=== PATIENT | male | born 1950 | race Caucasian/White ===

== ENCOUNTER → 2022-05-21 | Outpatient (REF) | payer MEDICARE ==
[2022-05-21 16:59] LABS: BLOOD UREA NITROGEN 8 MG/DL (7-18); CALCIUM LEVEL 8.4 MG/DL (8.8-10.2); CARBON DIOXIDE LEVEL 20 MEQ/L (21-32); CHLORIDE LEVEL 101 MEQ/L (98-107); CREATININE FOR GFR 0.52 MG/DL (0.70-1.30); GLOMERULAR FILTRATION RATE > 60.0 (>42); GLUCOSE, FASTING 99 MG/DL (70-100); POTASSIUM SERUM 4.1 MEQ/L (3.5-5.1); SODIUM LEVEL 134 MEQ/L (136-145)
== END ==
LOC: M LAB REF 15:52
PROVIDERS: ATTEND Internal Medicine Endocrinology, Diabetes & Metabolism
DX: K26.1 Acute duodenal ulcer with perforation (principal)

== ENCOUNTER 2022-07-10 13:39 | Inpatient (IN) | payer MEDICARE, BC ==
[~2022-07-10] VITALS: Ht 165.1 cm; Wt 69.3 kg
[2022-07-10] MEDS ORDERED: NS 500 ML IV ONE (14:50)
[2022-07-10 14:59] LABS: BASO % 0.2 % (0.0-1.0); HEMATOCRIT 35.9 % (42.0-52.0); HEMOGLOBIN 11.9 g/dl (13.5-17.5); LYMPH # 0.5 10^3/uL (1.5-5.0); LYMPH % 2.6 % (24.0-44.0); MEAN CORPUSCULAR HEMOGLOBIN 26.7 pg (27.0-33.0); MEAN CORPUSCULAR HGB CONC 33.1 g/dl (32.0-36.5); MEAN CORPUSCULAR VOLUME 80.5 fl (80.0-96.0); MONO # 0.5 10^3/uL (0.0-0.8); MONO % 2.9 % (2.0-8.0); NEUTROPHILS # 17.6 10^3/uL (1.5-8.5); NEUTROPHILS % 93.8 % (36.0-66.0); PLATELET COUNT, AUTOMATED 503 10^3/uL (150-450); RED BLOOD COUNT 4.46 10^6/uL (4.30-6.10); WHITE BLOOD COUNT 18.8 10^3/uL (4.0-10.0)
[2022-07-10] MEDS ORDERED: ISOVUE-370 76% 100ML VIAL As Ordered ONE (15:08)
[2022-07-10] MEDS ORDERED: PIPERACILLIN/TAZOBACTAM SOD 4.5 GM in D5W MINI-BAG PLUS 50 ML IV ONE (15:30)
[2022-07-10] MEDS ORDERED: NS 2,210 ML in IV 1 EA IV ONE (15:30)
[2022-07-10 15:32] LABS: ALBUMIN 3.3 GM/DL (3.2-5.2); BILIRUBIN,DIRECT 0.2 MG/DL (0.0-0.2); BILIRUBIN,TOTAL 0.4 MG/DL (0.2-1.0); CALCIUM LEVEL 10.5 MG/DL (8.8-10.2); CREATININE FOR GFR 1.27 MG/DL (0.70-1.30); GLOMERULAR FILTRATION RATE 59.3 (>42); POTASSIUM SERUM 4.7 MEQ/L (3.5-5.1)
[2022-07-10 16:01] LABS: ABG BASE EXCESS -5.4 (-2.0-2.0); ABG O2 SATURATION 97.8 % (95.0-99.0); ABG PARTIAL PRESSURE CO2 28.5 mmHg (35.0-45.0); ABG PARTIAL PRESSURE O2 97.8 mmHg (75.0-100.0); ABG TOTAL CO2 18.9 MEQ/L (23.0-31.0); ABG pH (ARTERIAL) 7.418 UNITS (7.350-7.450)
[2022-07-10] MEDS ORDERED: HOME MED LIST COMPLETE! XX SCH (16:45)
[2022-07-10] MEDS ORDERED: GLUC3SPR (16:45)
[2022-07-10] MEDS ORDERED: DULO1CAP6 PO (16:45)
[2022-07-10] MEDS ORDERED: LANTINJ4 SC (16:45)
[2022-07-10] MEDS ORDERED: pt comment (16:45)
[2022-07-10] MEDS ORDERED: VICT18IN2 PO (16:45)
[2022-07-10 16:48] LABS: INR 1.12; PROTHROMBIN TIME 14.8 SECONDS (12.7-14.5)
[2022-07-10 17:01] LABS: RSV AMPLIFICATION NEGATIVE (NEGATIVE)
[2022-07-10 17:11] LABS: CK-MB VALUE MASS 3.7 NG/ML (<3.6); MB/CK RELATIVE INDEX 5.36 (< OR =4)
[2022-07-10] MEDS ORDERED: DEXTROSE 50% 50 ML SYRINGE IV PRN (17:20)
[2022-07-10] MEDS ORDERED: GLUCAGON INJ 1MG VIAL SC PRN (17:20)
[2022-07-10] MEDS ORDERED: GLUCOSE 4GM CHEW TABLET PO PRN (17:20)
[2022-07-10] MEDS ORDERED: GLUCAGON INJ 1MG VIAL As Ordered ONE (17:25)
[2022-07-10 17:31] LABS: C REACTIVE PROTEIN QUANTITATIV 18.9 MG/DL (0.00-0.30)
[2022-07-10] MEDS ORDERED: propofoL 200 MG/20 ML VIAL As Ordered ONE (17:37)
[2022-07-10] MEDS ORDERED: fentaNYL 100 MCG/2 ML INJECTION As Ordered ONE ×2 (17:37→18:45)
[2022-07-10] MEDS ORDERED: LIDOCAINE 2% 100MG/5ML SDV (FOR ANES.) As Ordered ONE (17:37)
[2022-07-10] MEDS ORDERED: ROCURONIUM BROMIDE 50 MG/5 ML VIAL As Ordered ONE ×2 (17:37→18:40)
[2022-07-10] MEDS ORDERED: MIDAZOLAM INJ 2MG/2ML VIAL (J2250 PER 1MG) As Ordered ONE (17:37)
[2022-07-10] MEDS ORDERED: dexameTHASONE 4 MG/ML 1ML VIAL (J1100 PER 1MG) As Ordered ONE (17:59)
[2022-07-10] MEDS ORDERED: INSULIN LISPRO (NovoLOG) PER UNIT SC SCH (18:00)
[2022-07-10 18:33] LABS: BLOOD UREA NITROGEN 28 MG/DL (7-18); CALCIUM LEVEL 9.5 MG/DL (8.8-10.2); CARBON DIOXIDE LEVEL 19 MEQ/L (21-32); CHLORIDE LEVEL 94 MEQ/L (98-107); CREATININE FOR GFR 1.12 MG/DL (0.70-1.30); GLOMERULAR FILTRATION RATE > 60.0 (>42); GLUCOSE, FASTING 114 MG/DL (70-100); POTASSIUM SERUM 4.4 MEQ/L (3.5-5.1); SODIUM LEVEL 125 MEQ/L (136-145)
[2022-07-10] MEDS ORDERED: BUPIVACAINE LIPOSOME/PF 1.3% 20ML VIAL (13.3MG/ML)(EXPAREL) As Ordered ONE ×2 (18:36→19:38)
[2022-07-10] MEDS ORDERED: ONDANSETRON 4MG 2ML VIAL As Ordered ONE (19:09)
[2022-07-10] MEDS ORDERED: ACETAMINOPHEN 1000MG 100ML IV BAG As Ordered ONE (19:09)
[2022-07-10] MEDS ORDERED: SUGAMMADEX SODIUM 500 MG/5 ML VIAL (BRIDION) As Ordered ONE (19:09)
[2022-07-10] MEDS ORDERED: HYDROmorphone HCL 2MG/ML 1ML VIAL As Ordered ONE (19:19)
[2022-07-10] MEDS ORDERED: NS 1,000 ML IV SCH ×2 (19:30→19:50)
[2022-07-10] MEDS ORDERED: HYDROMORPHONE HCL 0.5 MG/ 0.5 ML SYRINGE (J1170 PER 1) IV PRN (19:50)
[2022-07-10] MEDS ORDERED: IPRATROPIUM 0.5MG/ALBUTEROL 2.5MG INH SOL UD 3ML (DUONEB) NEB PRN (19:50)
[2022-07-10] MEDS ORDERED: INSULIN LISPRO (NovoLOG) PER UNIT SC PRN (19:50)
[2022-07-10] MEDS ORDERED: METOCLOPRAMIDE INJ 10MG/2ML VIAL (J2765 PER 1) IV PRN (19:50)
[2022-07-10] MEDS ORDERED: ONDANSETRON 4MG 2ML VIAL IV PRN (19:50)
[2022-07-10] MEDS ORDERED: MORPHINE 2 MG/ML 1ML VIAL IV PRN (19:50)
[2022-07-10] MEDS ORDERED: fentaNYL 100 MCG/2 ML INJECTION IV PRN (19:50)
[2022-07-10] MEDS ORDERED: LABETALOL 100MG/20ML VIAL As Ordered ONE (19:56)
[2022-07-10] MEDS: IPRATROPIUM 0.5MG/ALBUTEROL 2.5MG INH SOL UD 3ML (DUONEB) NEB SCH (20:00)
[2022-07-10 21:10] VITALS: BP 128/78
[2022-07-10] MEDS: PANTOPRAZOLE 40MG VIAL IV SCH (22:12)
[2022-07-10] MEDS: PIPERACILLIN/TAZOBACTAM SOD 3.375 GM in D5W MINI-BAG PLUS 50 ML IV SCH (22:12)
[2022-07-10] MEDS: MORPHINE 4 MG/ML 1ML VIAL IV PRN (22:13)
[2022-07-10] MEDS: NS 1,000 ML IV SCH (22:14)
[2022-07-10 22:44] LABS: BLOOD UREA NITROGEN 28 MG/DL (7-18); CALCIUM LEVEL 8.8 MG/DL (8.8-10.2); CARBON DIOXIDE LEVEL 19 MEQ/L (21-32); CHLORIDE LEVEL 97 MEQ/L (98-107); GLOMERULAR FILTRATION RATE > 60.0 (>42); GLUCOSE, FASTING 123 MG/DL (70-100); POTASSIUM SERUM 4.8 MEQ/L (3.5-5.1); SODIUM LEVEL 125 MEQ/L (136-145)
[2022-07-11] VITALS (7 sets, daily range): BP systolic 119–188; BP diastolic 76–116
[2022-07-11] MEDS: INSULIN LISPRO (NovoLOG) PER UNIT SC SCH ×4 (00:12→18:17)
[2022-07-11] MEDS: NS 1,000 ML IV SCH (01:28)
[2022-07-11] MEDS: IPRATROPIUM 0.5MG/ALBUTEROL 2.5MG INH SOL UD 3ML (DUONEB) NEB SCH ×4 (02:00→19:13)
[2022-07-11] MEDS: MORPHINE 4 MG/ML 1ML VIAL IV PRN ×4 (03:39→11:53)
[2022-07-11] MEDS: PIPERACILLIN/TAZOBACTAM SOD 3.375 GM in D5W MINI-BAG PLUS 50 ML IV SCH ×4 (04:42→22:59)
[2022-07-11 05:40] LABS: HEMATOCRIT 32.7 % (42.0-52.0); HEMOGLOBIN 10.5 g/dl (13.5-17.5); MEAN CORPUSCULAR HEMOGLOBIN 26.3 pg (27.0-33.0); MEAN CORPUSCULAR HGB CONC 32.1 g/dl (32.0-36.5); MEAN CORPUSCULAR VOLUME 81.8 fl (80.0-96.0); WHITE BLOOD COUNT 15.9 10^3/uL (4.0-10.0)
[2022-07-11 05:45] LABS: PLATELET COUNT, AUTOMATED 402 10^3/uL (150-450)
[2022-07-11 06:15] LABS: ALBUMIN 2.5 GM/DL (3.2-5.2); ALKALINE PHOSPHATASE 58 U/L (45-117); ALT/SGPT 17 U/L (12-78); AST/SGOT 19 U/L (7-37); BILIRUBIN,TOTAL 0.4 MG/DL (0.2-1.0); BLOOD UREA NITROGEN 29 MG/DL (7-18); CALCIUM LEVEL 8.8 MG/DL (8.8-10.2); CARBON DIOXIDE LEVEL 19 MEQ/L (21-32); CHLORIDE LEVEL 100 MEQ/L (98-107); CREATININE FOR GFR 0.68 MG/DL (0.70-1.30); GLOMERULAR FILTRATION RATE > 60.0 (>42); GLUCOSE, FASTING 106 MG/DL (70-100); MAGNESIUM LEVEL 1.3 MG/DL (1.8-2.4); PHOSPHORUS LEVEL 4.8 MG/DL (2.5-4.9); POTASSIUM SERUM 4.3 MEQ/L (3.5-5.1); SODIUM LEVEL 130 MEQ/L (136-145); TOTAL PROTEIN 5.5 GM/DL (6.4-8.2)
[2022-07-11] MEDS: PANTOPRAZOLE 40MG VIAL IV SCH ×2 (07:46→19:28)
[2022-07-11] MEDS ORDERED: MORPHINE 2 MG/ML 1ML VIAL IV PRN (09:30)
[2022-07-11] MEDS: MAG SULF 1GM/100ML (MAG RUN) 1 GM in IV 1 EA IV SCH ×2 (09:52→11:03)
[2022-07-11 10:16] LABS: OSMOLALITY URINE 807 MOSM/KG (50-1400)
[2022-07-11 10:43] LABS: SODIUM,RANDOM URINE 14 MEQ/L
[2022-07-11] MEDS: SODIUM BICARBONATE 75 MEQ in NS 0.45% 1,000 ML IV SCH (11:03)
[2022-07-11 12:05] LABS: BLOOD UREA NITROGEN 28 MG/DL (7-18); CALCIUM LEVEL 8.7 MG/DL (8.8-10.2); CARBON DIOXIDE LEVEL 19 MEQ/L (21-32); CHLORIDE LEVEL 100 MEQ/L (98-107); CREATININE FOR GFR 0.55 MG/DL (0.70-1.30); GLOMERULAR FILTRATION RATE > 60.0 (>42); GLUCOSE, FASTING 145 MG/DL (70-100); SODIUM LEVEL 130 MEQ/L (136-145)
[2022-07-11] MEDS ORDERED: HYDROMORPHONE HCL 0.5 MG/ 0.5 ML SYRINGE (J1170 PER 1) IV ONE (12:30)
[2022-07-11] MEDS: KETOROLAC 30 MG/ML 1ML VIAL IV SCH ×2 (12:50→18:17)
[2022-07-11] MEDS: HYDROmorphone HCL 2MG/ML 1ML VIAL IV PRN (13:10)
[2022-07-11 13:22] LABS: HEMATOCRIT 32.3 % (42.0-52.0); HEMOGLOBIN 10.5 g/dl (13.5-17.5); MEAN CORPUSCULAR HGB CONC 32.5 g/dl (32.0-36.5); PLATELET COUNT, AUTOMATED 450 10^3/uL (150-450); RED BLOOD COUNT 4.04 10^6/uL (4.30-6.10); WHITE BLOOD COUNT 18.4 10^3/uL (4.0-10.0)
[2022-07-11 13:53] LABS: ALBUMIN 2.5 GM/DL (3.2-5.2); ALKALINE PHOSPHATASE 69 U/L (45-117); ALT/SGPT 20 U/L (12-78); AST/SGOT 26 U/L (7-37); BILIRUBIN,TOTAL 0.5 MG/DL (0.2-1.0); BLOOD UREA NITROGEN 27 MG/DL (7-18); CALCIUM LEVEL 8.9 MG/DL (8.8-10.2); CARBON DIOXIDE LEVEL 16 MEQ/L (21-32); CHLORIDE LEVEL 100 MEQ/L (98-107); CREATININE FOR GFR 0.71 MG/DL (0.70-1.30); GLOMERULAR FILTRATION RATE > 60.0 (>42); GLUCOSE, FASTING 176 MG/DL (70-100); SODIUM LEVEL 130 MEQ/L (136-145); TOTAL PROTEIN 5.8 GM/DL (6.4-8.2)
[2022-07-11 14:43] LABS: BLOOD UREA NITROGEN 27 MG/DL (7-18); CALCIUM LEVEL 8.8 MG/DL (8.8-10.2); CARBON DIOXIDE LEVEL 17 MEQ/L (21-32); CHLORIDE LEVEL 101 MEQ/L (98-107); CREATININE FOR GFR 0.62 MG/DL (0.70-1.30); GLOMERULAR FILTRATION RATE > 60.0 (>42); GLUCOSE, FASTING 153 MG/DL (70-100); POTASSIUM SERUM 3.6 MEQ/L (3.5-5.1); SODIUM LEVEL 129 MEQ/L (136-145)
[2022-07-11] MEDS: HYDROMORPHONE HCL 0.5 MG/ 0.5 ML SYRINGE (J1170 PER 1) IV PRN ×3 (16:14→22:56)
[2022-07-12] VITALS: BP 133/91
[2022-07-12] MEDS: KETOROLAC 30 MG/ML 1ML VIAL IV SCH ×4 (00:24→18:27)
[2022-07-12] MEDS: SODIUM BICARBONATE 75 MEQ in NS 0.45% 1,000 ML IV SCH ×3 (01:02→21:15)
[2022-07-12] MEDS: IPRATROPIUM 0.5MG/ALBUTEROL 2.5MG INH SOL UD 3ML (DUONEB) NEB SCH ×4 (01:42→19:20)
[2022-07-12] MEDS: HYDROMORPHONE HCL 0.5 MG/ 0.5 ML SYRINGE (J1170 PER 1) IV PRN ×2 (03:24→17:56)
[2022-07-12 04:00] VITALS: BP 133/85
[2022-07-12] MEDS: PIPERACILLIN/TAZOBACTAM SOD 3.375 GM in D5W MINI-BAG PLUS 50 ML IV SCH ×4 (05:23→23:20)
[2022-07-12] MEDS: INSULIN LISPRO (NovoLOG) PER UNIT SC SCH ×5 (05:44→23:55)
[2022-07-12 05:46] LABS: HEMATOCRIT 34.3 % (42.0-52.0); HEMOGLOBIN 11.2 g/dl (13.5-17.5); MEAN CORPUSCULAR HEMOGLOBIN 26.5 pg (27.0-33.0); MEAN CORPUSCULAR HGB CONC 32.7 g/dl (32.0-36.5); MEAN CORPUSCULAR VOLUME 81.3 fl (80.0-96.0); PLATELET COUNT, AUTOMATED 489 10^3/uL (150-450); RED BLOOD COUNT 4.22 10^6/uL (4.30-6.10); WHITE BLOOD COUNT 16.2 10^3/uL (4.0-10.0)
[2022-07-12 06:23] LABS: ALBUMIN 2.2 GM/DL (3.2-5.2); ALKALINE PHOSPHATASE 68 U/L (45-117); ALT/SGPT 15 U/L (12-78); AST/SGOT 27 U/L (7-37); BILIRUBIN,TOTAL 0.5 MG/DL (0.2-1.0); BLOOD UREA NITROGEN 35 MG/DL (7-18); CALCIUM LEVEL 8.3 MG/DL (8.8-10.2); CARBON DIOXIDE LEVEL 20 MEQ/L (21-32); CHLORIDE LEVEL 102 MEQ/L (98-107); CREATININE FOR GFR 0.68 MG/DL (0.70-1.30); GLOMERULAR FILTRATION RATE > 60.0 (>42); GLUCOSE, FASTING 122 MG/DL (70-100); POTASSIUM SERUM 4.3 MEQ/L (3.5-5.1); SODIUM LEVEL 133 MEQ/L (136-145); TOTAL PROTEIN 5.3 GM/DL (6.4-8.2)
[2022-07-12] MEDS: HYDROmorphone HCL 2MG/ML 1ML VIAL IV PRN ×4 (07:23→21:13)
[2022-07-12 08:00] VITALS: BP 117/78
[2022-07-12] MEDS ORDERED: LORazepam 2 MG/ML VIAL IV PRN ×2 (08:55→20:55)
[2022-07-12] MEDS: PANTOPRAZOLE 40MG VIAL IV SCH ×2 (09:52→21:12)
[2022-07-12 12:00] VITALS: BP 157/94
[2022-07-12] MEDS ORDERED: NS 1,000 ML IV SCH (14:00)
[2022-07-12 16:00] VITALS: BP_SYST 157; BP_SYST 162; BP_DIAS 92; BP_DIAS 94
[2022-07-12] MEDS: OCTREOTIDE ACETATE 100MCG/ML VIAL **IV ADMINISTRATION ONLY IV SCH ×2 (16:37→23:25)
[2022-07-12 20:00] VITALS: BP 138/95
[2022-07-12] MEDS: ONDANSETRON 4MG 2ML VIAL IV PRN (23:20)
[2022-07-13] VITALS (12 sets, daily range): BP systolic 137–172; BP diastolic 60–98; O2SAT 92–99
[2022-07-13] MEDS ORDERED: LORazepam 2 MG/ML VIAL IV ONE
[2022-07-13] MEDS: KETOROLAC 30 MG/ML 1ML VIAL IV SCH ×4 (00:04→18:49)
[2022-07-13] MEDS: HYDROMORPHONE HCL 0.5 MG/ 0.5 ML SYRINGE (J1170 PER 1) IV PRN (00:47)
[2022-07-13 01:11] LABS: ABG BASE EXCESS -4.6 (-2.0-2.0); ABG HCO3 19.5 MEQ/L (22.0-26.0); ABG O2 SATURATION 97.8 % (95.0-99.0); ABG PARTIAL PRESSURE CO2 32.4 mmHg (35.0-45.0); ABG PARTIAL PRESSURE O2 95.8 mmHg (75.0-100.0); ABG STANDARD HCO3 20.6 MEQ/L (22.0-26.0); ABG TOTAL CO2 20.5 MEQ/L (23.0-31.0); ABG pH (ARTERIAL) 7.397 UNITS (7.350-7.450)
[2022-07-13] MEDS: IPRATROPIUM 0.5MG/ALBUTEROL 2.5MG INH SOL UD 3ML (DUONEB) NEB SCH ×4 (01:24→19:00)
[2022-07-13] MEDS: NS 1,000 ML IV SCH ×3 (03:00→15:44)
[2022-07-13] MEDS: HYDROmorphone HCL 2MG/ML 1ML VIAL IV PRN ×2 (03:48→06:49)
[2022-07-13] MEDS: PIPERACILLIN/TAZOBACTAM SOD 3.375 GM in D5W MINI-BAG PLUS 50 ML IV SCH ×4 (04:01→22:35)
[2022-07-13] MEDS: INSULIN LISPRO (NovoLOG) PER UNIT SC SCH ×3 (05:55→18:00)
[2022-07-13] MEDS: SODIUM BICARBONATE 75 MEQ in NS 0.45% 1,000 ML IV SCH (05:55)
[2022-07-13 06:23] LABS: BASO % 0.1 % (0.0-1.0); HEMATOCRIT 31.6 % (42.0-52.0); HEMOGLOBIN 10.1 g/dl (13.5-17.5); LYMPH % 5.2 % (24.0-44.0); MEAN CORPUSCULAR HEMOGLOBIN 26.2 pg (27.0-33.0); MEAN CORPUSCULAR VOLUME 81.9 fl (80.0-96.0); NEUTROPHILS # 16.3 10^3/uL (1.5-8.5); NEUTROPHILS % 86.1 % (36.0-66.0); PLATELET COUNT, AUTOMATED 461 10^3/uL (150-450); RED BLOOD COUNT 3.86 10^6/uL (4.30-6.10); WHITE BLOOD COUNT 18.9 10^3/uL (4.0-10.0)
[2022-07-13 06:49] LABS: MONO # 1.5 10^3/uL (0.0-0.8)
[2022-07-13 07:03] LABS: ALKALINE PHOSPHATASE 78 U/L (45-117); ALT/SGPT 16 U/L (12-78); AST/SGOT 37 U/L (7-37); BILIRUBIN,TOTAL 0.7 MG/DL (0.2-1.0); BLOOD UREA NITROGEN 40 MG/DL (7-18); CALCIUM LEVEL 8.3 MG/DL (8.8-10.2); CARBON DIOXIDE LEVEL 26 MEQ/L (21-32); CHLORIDE LEVEL 103 MEQ/L (98-107); CREATININE FOR GFR 0.68 MG/DL (0.70-1.30); GLOMERULAR FILTRATION RATE > 60.0 (>42); GLUCOSE, FASTING 147 MG/DL (70-100); MAGNESIUM LEVEL 2.1 MG/DL (1.8-2.4); PHOSPHORUS LEVEL 2.5 MG/DL (2.5-4.9); POTASSIUM SERUM 3.7 MEQ/L (3.5-5.1); SODIUM LEVEL 136 MEQ/L (136-145); TOTAL PROTEIN 5.8 GM/DL (6.4-8.2)
[2022-07-13] MEDS ORDERED: ACETAMINOPHEN 1000MG 100ML IV BAG IV ONE (07:55)
[2022-07-13] MEDS: OCTREOTIDE ACETATE 100MCG/ML VIAL **IV ADMINISTRATION ONLY IV SCH (09:02)
[2022-07-13] MEDS: PANTOPRAZOLE 40MG VIAL IV SCH ×2 (09:02→20:12)
[2022-07-13] MEDS ORDERED: ISOVUE-370 76% 100ML VIAL As Ordered ONE (09:18)
[2022-07-13] MEDS ORDERED: OLANZapine INTRAMUSCULAR 10MG VIAL IM ONE ×2 (09:30→23:05)
[2022-07-13] MEDS ORDERED: HYDROmorphone HCL 2MG/ML 1ML VIAL IV PRN (09:30)
[2022-07-13] MEDS: GASTROGRAFIN SOLUTION 30ML PO SCH ×2 (11:05→11:10)
[2022-07-13] MEDS ORDERED: LIDOCAINE 2% 100MG/5ML SDV (FOR ANES.) As Ordered ONE (12:49)
[2022-07-13] MEDS ORDERED: fentaNYL 100 MCG/2 ML INJECTION As Ordered ONE (12:50)
[2022-07-13] MEDS ORDERED: propofoL 200 MG/20 ML VIAL As Ordered ONE (12:50)
[2022-07-13] MEDS ORDERED: METOCLOPRAMIDE INJ 10MG/2ML VIAL (J2765 PER 1) As Ordered ONE (12:52)
[2022-07-13] MEDS ORDERED: ONDANSETRON 4MG 2ML VIAL As Ordered ONE (12:52)
[2022-07-13] MEDS ORDERED: ROCURONIUM BROMIDE 50 MG/5 ML VIAL As Ordered ONE ×2 (12:53→14:04)
[2022-07-13] MEDS: HEPARIN SOD (PORCINE) 5000UNITS/ML 1ML VIAL/SYRINGE SQ SCH ×2 (14:00→22:35)
[2022-07-13] MEDS ORDERED: SUGAMMADEX SODIUM 500 MG/5 ML VIAL (BRIDION) As Ordered ONE (14:42)
[2022-07-13] MEDS ORDERED: SEVOFLURANE INHAL SOLN 250 ML BTL As Ordered ONE (15:09)
[2022-07-13] MEDS ORDERED: ACETAMINOPHEN 1000MG 100ML IV BAG As Ordered ONE (15:29)
[2022-07-13] MEDS ORDERED: HYDROmorphone HCL 2MG/ML 1ML VIAL As Ordered ONE (15:35)
[2022-07-13] MEDS ORDERED: fentaNYL 100 MCG/2 ML INJECTION IV PRN (16:45)
[2022-07-13] MEDS ORDERED: INSULIN LISPRO (NovoLOG) PER UNIT SC PRN (16:45)
[2022-07-13] MEDS ORDERED: NS 1,000 ML IV SCH (16:45)
[2022-07-13] MEDS ORDERED: ONDANSETRON 4MG 2ML VIAL IV PRN (16:45)
[2022-07-13] MEDS ORDERED: HYDROMORPHONE HCL 0.5 MG/ 0.5 ML SYRINGE (J1170 PER 1) IV PRN (16:45)
[2022-07-13] MEDS: ONDANSETRON 4MG 2ML VIAL IV PRN (20:13)
[2022-07-14] VITALS (11 sets, daily range): BP systolic 132–158; BP diastolic 75–91; O2SAT 94–100
[2022-07-14] MEDS: IPRATROPIUM 0.5MG/ALBUTEROL 2.5MG INH SOL UD 3ML (DUONEB) NEB SCH ×4 (01:20→19:16)
[2022-07-14] MEDS: KETOROLAC 30 MG/ML 1ML VIAL IV SCH ×4 (01:27→18:05)
[2022-07-14] MEDS: HYDROMORPHONE HCL 0.5 MG/ 0.5 ML SYRINGE (J1170 PER 1) IV PRN ×3 (01:46→21:04)
[2022-07-14] MEDS: PIPERACILLIN/TAZOBACTAM SOD 3.375 GM in D5W MINI-BAG PLUS 50 ML IV SCH ×3 (06:04→18:05)
[2022-07-14] MEDS: HEPARIN SOD (PORCINE) 5000UNITS/ML 1ML VIAL/SYRINGE SQ SCH ×3 (06:05→21:03)
[2022-07-14] MEDS: INSULIN LISPRO (NovoLOG) PER UNIT SC SCH ×4 (06:14→18:00)
[2022-07-14 08:06] LABS: BASO % 0.1 % (0.0-1.0); EOS % 0.1 % (0.0-3.0); HEMATOCRIT 26.3 % (42.0-52.0); HEMOGLOBIN 8.2 g/dl (13.5-17.5); LYMPH # 0.8 10^3/uL (1.5-5.0); LYMPH % 4.6 % (24.0-44.0); MEAN CORPUSCULAR HEMOGLOBIN 26.4 pg (27.0-33.0); MEAN CORPUSCULAR HGB CONC 31.2 g/dl (32.0-36.5); MEAN CORPUSCULAR VOLUME 84.6 fl (80.0-96.0); MONO # 1.4 10^3/uL (0.0-0.8); MONO % 7.9 % (2.0-8.0); NEUTROPHILS # 14.8 10^3/uL (1.5-8.5); NEUTROPHILS % 86.6 % (36.0-66.0); PLATELET COUNT, AUTOMATED 399 10^3/uL (150-450); RED BLOOD COUNT 3.11 10^6/uL (4.30-6.10); WHITE BLOOD COUNT 17.1 10^3/uL (4.0-10.0)
[2022-07-14 08:57] LABS: ALBUMIN 1.9 GM/DL (3.2-5.2); ALKALINE PHOSPHATASE 59 U/L (45-117); ALT/SGPT 26 U/L (12-78); AST/SGOT 38 U/L (7-37); BILIRUBIN,TOTAL 0.4 MG/DL (0.2-1.0); BLOOD UREA NITROGEN 25 MG/DL (7-18); CALCIUM LEVEL 7.8 MG/DL (8.8-10.2); CARBON DIOXIDE LEVEL 26 MEQ/L (21-32); CHLORIDE LEVEL 110 MEQ/L (98-107); CREATININE FOR GFR 0.49 MG/DL (0.70-1.30); GLOMERULAR FILTRATION RATE > 60.0 (>42); GLUCOSE, FASTING 129 MG/DL (70-100); PHOSPHORUS LEVEL 2.1 MG/DL (2.5-4.9); POTASSIUM SERUM 3.8 MEQ/L (3.5-5.1); SODIUM LEVEL 142 MEQ/L (136-145); TOTAL PROTEIN 4.9 GM/DL (6.4-8.2)
[2022-07-14] MEDS: PANTOPRAZOLE 40MG VIAL IV SCH ×2 (09:40→21:02)
[2022-07-14] MEDS: NS 0.45% 1,000 ML IV SCH ×2 (10:55→18:06)
[2022-07-14] MEDS ORDERED: OLANZapine INTRAMUSCULAR 10MG VIAL IM ONE (11:10)
[2022-07-14] MEDS ORDERED: SODIUM PHOSPHATE INJ 20 MMOL in D5W 250 ML IV ONE (14:00)
[2022-07-14] MEDS: FLUCONAZOLE 400 MG in IV 1 EA IV SCH (14:43)
[2022-07-15] VITALS (11 sets, daily range): BP systolic 124–156; BP diastolic 60–86; O2SAT 97
[2022-07-15] MEDS: KETOROLAC 30 MG/ML 1ML VIAL IV SCH ×4 (00:22→18:36)
[2022-07-15] MEDS: PIPERACILLIN/TAZOBACTAM SOD 3.375 GM in D5W MINI-BAG PLUS 50 ML IV SCH ×4 (00:23→20:38)
[2022-07-15] MEDS: IPRATROPIUM 0.5MG/ALBUTEROL 2.5MG INH SOL UD 3ML (DUONEB) NEB SCH ×4 (01:40→19:21)
[2022-07-15] MEDS: HYDROMORPHONE HCL 0.5 MG/ 0.5 ML SYRINGE (J1170 PER 1) IV PRN ×4 (03:24→20:38)
[2022-07-15] MEDS: HEPARIN SOD (PORCINE) 5000UNITS/ML 1ML VIAL/SYRINGE SQ SCH ×3 (05:08→22:28)
[2022-07-15] MEDS: NS 0.45% 1,000 ML IV SCH ×3 (05:10→18:55)
[2022-07-15] MEDS: INSULIN LISPRO (NovoLOG) PER UNIT SC SCH ×4 (06:29→18:00)
[2022-07-15 08:24] LABS: ALBUMIN 1.8 GM/DL (3.2-5.2); ALKALINE PHOSPHATASE 61 U/L (45-117); ALT/SGPT 21 U/L (12-78); AST/SGOT 29 U/L (7-37); BILIRUBIN,TOTAL 0.3 MG/DL (0.2-1.0); BLOOD UREA NITROGEN 15 MG/DL (7-18); CALCIUM LEVEL 7.7 MG/DL (8.8-10.2); CARBON DIOXIDE LEVEL 27 MEQ/L (21-32); CHLORIDE LEVEL 108 MEQ/L (98-107); CREATININE FOR GFR 0.34 MG/DL (0.70-1.30); GLOMERULAR FILTRATION RATE > 60.0 (>42); GLUCOSE, FASTING 108 MG/DL (70-100); MAGNESIUM LEVEL 1.5 MG/DL (1.8-2.4); PHOSPHORUS LEVEL 2.3 MG/DL (2.5-4.9); POTASSIUM SERUM 3.4 MEQ/L (3.5-5.1); SODIUM LEVEL 142 MEQ/L (136-145); TOTAL PROTEIN 4.7 GM/DL (6.4-8.2)
[2022-07-15] MEDS ORDERED: KCL 10MEQ/100ML SWI (KRUN) 10 MEQ in IV 1 EA IV SCH (09:00)
[2022-07-15] MEDS ORDERED: ACETAMINOPHEN 1000MG 100ML IV BAG IV ONE (09:10)
[2022-07-15 09:13] LABS: HEMATOCRIT 22.4 % (42.0-52.0); MEAN CORPUSCULAR HEMOGLOBIN 26.4 pg (27.0-33.0); MEAN CORPUSCULAR HGB CONC 31.3 g/dl (32.0-36.5); MEAN CORPUSCULAR VOLUME 84.5 fl (80.0-96.0); PLATELET COUNT, AUTOMATED 351 10^3/uL (150-450); RED BLOOD COUNT 2.65 10^6/uL (4.30-6.10); WHITE BLOOD COUNT 12.8 10^3/uL (4.0-10.0)
[2022-07-15] MEDS: PANTOPRAZOLE 40MG VIAL IV SCH ×2 (09:39→22:27)
[2022-07-15] MEDS: MAG SULF 1GM/100ML (MAG RUN) 1 GM in IV 1 EA IV SCH ×2 (09:40→10:57)
[2022-07-15] MEDS ORDERED: ACETAMINOPHEN *IV* 1,000 MG IV ONE ×2 (10:00)
[2022-07-15] MEDS: FLUCONAZOLE 400 MG in IV 1 EA IV SCH ×2 (12:07→18:37)
[2022-07-15] MEDS: KCL 10MEQ/100ML SWI (KRUN) 10 MEQ in IV 1 EA IV SCH ×8 (12:07→22:00)
[2022-07-15] MEDS ORDERED: FUROSEMIDE 40MG/4ML VIAL (J1940) IV ONE (12:50)
[2022-07-15] MEDS: SODIUM PHOSPHATE INJ 20 MMOL in D5W 250 ML IV ONE ×2 (13:49→18:36)
[2022-07-16] VITALS (23 sets, daily range): BP systolic 115–146; BP diastolic 60–78; O2SAT 83–99
[2022-07-16] MEDS: KETOROLAC 30 MG/ML 1ML VIAL IV SCH ×2 (00:23→06:14)
[2022-07-16] MEDS: HYDROMORPHONE HCL 0.5 MG/ 0.5 ML SYRINGE (J1170 PER 1) IV PRN ×6 (01:53→22:58)
[2022-07-16] MEDS: PIPERACILLIN/TAZOBACTAM SOD 3.375 GM in D5W MINI-BAG PLUS 50 ML IV SCH ×4 (01:54→21:46)
[2022-07-16] MEDS: NS 0.45% 1,000 ML IV SCH ×2 (02:55→06:14)
[2022-07-16] MEDS: IPRATROPIUM 0.5MG/ALBUTEROL 2.5MG INH SOL UD 3ML (DUONEB) NEB SCH ×4 (03:02→20:01)
[2022-07-16] MEDS: INSULIN LISPRO (NovoLOG) PER UNIT SC SCH ×4 (05:37→16:51)
[2022-07-16] MEDS: HEPARIN SOD (PORCINE) 5000UNITS/ML 1ML VIAL/SYRINGE SQ SCH ×2 (05:54→13:57)
[2022-07-16 06:49] LABS: BASO % 0.1 % (0.0-1.0); EOS # 0.2 10^3/uL (0.0-0.5); EOS % 1.5 % (0.0-3.0); HEMATOCRIT 26.6 % (42.0-52.0); HEMOGLOBIN 8.6 g/dl (13.5-17.5); LYMPH # 1.2 10^3/uL (1.5-5.0); LYMPH % 8.6 % (24.0-44.0); MEAN CORPUSCULAR HGB CONC 32.3 g/dl (32.0-36.5); MEAN CORPUSCULAR VOLUME 83.4 fl (80.0-96.0); MONO # 0.9 10^3/uL (0.0-0.8); MONO % 6.4 % (2.0-8.0); NEUTROPHILS # 11.1 10^3/uL (1.5-8.5); NEUTROPHILS % 81.3 % (36.0-66.0); PLATELET COUNT, AUTOMATED 328 10^3/uL (150-450); RED BLOOD COUNT 3.19 10^6/uL (4.30-6.10); WHITE BLOOD COUNT 13.7 10^3/uL (4.0-10.0)
[2022-07-16 07:31] LABS: ALBUMIN 1.9 GM/DL (3.2-5.2); ALKALINE PHOSPHATASE 64 U/L (45-117); ALT/SGPT 21 U/L (12-78); AST/SGOT 37 U/L (7-37); BILIRUBIN,TOTAL 0.9 MG/DL (0.2-1.0); BLOOD UREA NITROGEN 12 MG/DL (7-18); CALCIUM LEVEL 7.5 MG/DL (8.8-10.2); CARBON DIOXIDE LEVEL 30 MEQ/L (21-32); CHLORIDE LEVEL 104 MEQ/L (98-107); CREATININE FOR GFR 0.42 MG/DL (0.70-1.30); GLOMERULAR FILTRATION RATE > 60.0 (>42); GLUCOSE, FASTING 107 MG/DL (70-100); MAGNESIUM LEVEL 1.2 MG/DL (1.8-2.4); POTASSIUM SERUM 3.2 MEQ/L (3.5-5.1); SODIUM LEVEL 141 MEQ/L (136-145); TOTAL PROTEIN 4.8 GM/DL (6.4-8.2)
[2022-07-16] MEDS: PANTOPRAZOLE 40MG VIAL IV SCH ×2 (08:00→21:46)
[2022-07-16 09:37] LABS: FERRITIN 233 NG/ML (26-388); IRON (FE) 165 UG/DL (65-175); PERCENT SATURATION 91.2 % (19.7-50.0); TOTAL IRON BINDING CAPACITY 181 UG/DL (250-450)
[2022-07-16] MEDS: KCL 10MEQ/100ML SWI (KRUN) 10 MEQ in IV 1 EA IV SCH ×4 (09:42→12:08)
[2022-07-16] MEDS: D5W/0.45% SODIUM CHLORIDE 1,000 ML IV SCH ×2 (09:44→18:50)
[2022-07-16 10:15] LABS: VITAMIN B12 LEVEL 1166 PG/ML (247-911)
[2022-07-16] MEDS: MAG SULF 1GM/100ML (MAG RUN) 1 GM in IV 1 EA IV SCH ×2 (13:20→14:19)
[2022-07-16] MEDS ORDERED: KCL 10MEQ/100ML SWI (KRUN) 10 MEQ in IV 1 EA IV ONE (16:00)
[2022-07-16] MEDS: FLUCONAZOLE 400 MG in IV 1 EA IV SCH (17:35)
[2022-07-16 19:32] LABS: BASO % 0.2 % (0.0-1.0); EOS # 0.1 10^3/uL (0.0-0.5); EOS % 0.6 % (0.0-3.0); HEMATOCRIT 25.2 % (42.0-52.0); HEMOGLOBIN 8.2 g/dl (13.5-17.5); LYMPH # 1.2 10^3/uL (1.5-5.0); LYMPH % 7.1 % (24.0-44.0); MEAN CORPUSCULAR HEMOGLOBIN 26.9 pg (27.0-33.0); MEAN CORPUSCULAR HGB CONC 32.5 g/dl (32.0-36.5); MEAN CORPUSCULAR VOLUME 82.6 fl (80.0-96.0); MONO # 0.8 10^3/uL (0.0-0.8); MONO % 4.9 % (2.0-8.0); NEUTROPHILS # 14.6 10^3/uL (1.5-8.5); NEUTROPHILS % 85.7 % (36.0-66.0); PLATELET COUNT, AUTOMATED 324 10^3/uL (150-450); RED BLOOD COUNT 3.05 10^6/uL (4.30-6.10); WHITE BLOOD COUNT 17.1 10^3/uL (4.0-10.0)
[2022-07-16 19:51] LABS: INR 1.21; PROTHROMBIN TIME 15.7 SECONDS (12.7-14.5)
[2022-07-16 19:57] LABS: PARTIAL THROMBOPLASTIN TIME 39.4 SECONDS (25.9-37.0)
[2022-07-16 23:51] LABS: HEMATOCRIT 22.1 % (42.0-52.0); HEMOGLOBIN 7.4 g/dl (13.5-17.5)
[2022-07-17] VITALS (20 sets, daily range): BP systolic 112–153; BP diastolic 53–98; O2SAT 97–100
[2022-07-17] MEDS ORDERED: NS 500 ML IV ONE
[2022-07-17 00:01] LABS: BLOOD UREA NITROGEN 13 MG/DL (7-18); CALCIUM LEVEL 7.4 MG/DL (8.8-10.2); CARBON DIOXIDE LEVEL 24 MEQ/L (21-32); CHLORIDE LEVEL 101 MEQ/L (98-107); CREATININE FOR GFR 0.52 MG/DL (0.70-1.30); GLOMERULAR FILTRATION RATE > 60.0 (>42); GLUCOSE, FASTING 163 MG/DL (70-100); POTASSIUM SERUM 3.1 MEQ/L (3.5-5.1); SODIUM LEVEL 137 MEQ/L (136-145)
[2022-07-17 00:04] LABS: CK-MB VALUE MASS 1.7 NG/ML (<3.6); MB/CK RELATIVE INDEX 1.32 (< OR =4)
[2022-07-17] MEDS: INSULIN LISPRO (NovoLOG) PER UNIT SC SCH ×5 (00:05→23:56)
[2022-07-17] MEDS ORDERED: KCL 10MEQ/100ML SWI (KRUN) 10 MEQ in IV 1 EA IV ONE (01:30)
[2022-07-17] MEDS ORDERED: ACETAMINOPHEN 1000MG 100ML IV BAG IV ONE ×2 (01:30→22:00)
[2022-07-17] MEDS: IPRATROPIUM 0.5MG/ALBUTEROL 2.5MG INH SOL UD 3ML (DUONEB) NEB SCH ×4 (02:00→19:01)
[2022-07-17] MEDS: HYDROMORPHONE HCL 0.5 MG/ 0.5 ML SYRINGE (J1170 PER 1) IV PRN ×6 (02:00→22:09)
[2022-07-17] MEDS: PIPERACILLIN/TAZOBACTAM SOD 3.375 GM in D5W MINI-BAG PLUS 50 ML IV SCH ×4 (03:11→21:21)
[2022-07-17] MEDS: D5W/0.45% SODIUM CHLORIDE 1,000 ML IV SCH ×2 (04:50→12:13)
[2022-07-17 06:52] LABS: HEMATOCRIT 26.4 % (42.0-52.0); HEMOGLOBIN 8.9 g/dl (13.5-17.5); MEAN CORPUSCULAR HEMOGLOBIN 28.4 pg (27.0-33.0); MEAN CORPUSCULAR HGB CONC 33.7 g/dl (32.0-36.5); MEAN CORPUSCULAR VOLUME 84.3 fl (80.0-96.0); PLATELET COUNT, AUTOMATED 323 10^3/uL (150-450); RED BLOOD COUNT 3.13 10^6/uL (4.30-6.10); WHITE BLOOD COUNT 23.4 10^3/uL (4.0-10.0)
[2022-07-17 07:29] LABS: ALBUMIN 1.7 GM/DL (3.2-5.2); ALKALINE PHOSPHATASE 65 U/L (45-117); ALT/SGPT 30 U/L (12-78); AST/SGOT 60 U/L (7-37); BILIRUBIN,TOTAL 0.9 MG/DL (0.2-1.0); BLOOD UREA NITROGEN 13 MG/DL (7-18); CALCIUM LEVEL 7.4 MG/DL (8.8-10.2); CARBON DIOXIDE LEVEL 28 MEQ/L (21-32); CHLORIDE LEVEL 100 MEQ/L (98-107); CREATININE FOR GFR 0.52 MG/DL (0.70-1.30); GLOMERULAR FILTRATION RATE > 60.0 (>42); GLUCOSE, FASTING 119 MG/DL (70-100); MAGNESIUM LEVEL 1.4 MG/DL (1.8-2.4); PHOSPHORUS LEVEL 4.3 MG/DL (2.5-4.9); POTASSIUM SERUM 3.2 MEQ/L (3.5-5.1); SODIUM LEVEL 135 MEQ/L (136-145); TOTAL PROTEIN 4.8 GM/DL (6.4-8.2)
[2022-07-17] MEDS: PANTOPRAZOLE 40MG VIAL IV SCH ×2 (09:10→22:09)
[2022-07-17 11:03] LABS: HEMATOCRIT 25.5 % (42.0-52.0); HEMOGLOBIN 8.6 g/dl (13.5-17.5)
[2022-07-17] MEDS: KCL 10MEQ/100ML SWI (KRUN) 10 MEQ in IV 1 EA IV SCH ×3 (11:34→20:00)
[2022-07-17] MEDS: MAG SULF 1GM/100ML (MAG RUN) 1 GM in IV 1 EA IV SCH ×2 (11:34→20:00)
[2022-07-17] MEDS ORDERED: MAG SULF 1GM/100ML (MAG RUN) 1 GM in IV 1 EA IV SCH (14:00)
[2022-07-17] MEDS ORDERED: KCL 10MEQ/100ML SWI (KRUN) 10 MEQ in IV 1 EA IV SCH (17:00)
[2022-07-17] MEDS ORDERED: AMINO AC/ELECTROLYTE/DEX/CALC 2,566 ML IV SCH (18:00)
[2022-07-17] MEDS: MICAFUNGIN SODIUM 100 MG in D5W MINI-BAG PLUS 100 ML IV SCH (22:09)
[2022-07-17 23:26] LABS: BASO # 0.1 10^3/uL (0.0-0.2); BASO % 0.2 % (0.0-1.0); EOS # 0.2 10^3/uL (0.0-0.5); EOS % 0.7 % (0.0-3.0); HEMATOCRIT 28.2 % (42.0-52.0); HEMOGLOBIN 9.7 g/dl (13.5-17.5); LYMPH % 4.5 % (24.0-44.0); MEAN CORPUSCULAR HEMOGLOBIN 28.7 pg (27.0-33.0); MEAN CORPUSCULAR HGB CONC 34.4 g/dl (32.0-36.5); MEAN CORPUSCULAR VOLUME 83.4 fl (80.0-96.0); MONO # 1.2 10^3/uL (0.0-0.8); MONO % 5.3 % (2.0-8.0); NEUTROPHILS # 19.9 10^3/uL (1.5-8.5); NEUTROPHILS % 87.8 % (36.0-66.0); PLATELET COUNT, AUTOMATED 272 10^3/uL (150-450); RED BLOOD COUNT 3.38 10^6/uL (4.30-6.10); WHITE BLOOD COUNT 22.7 10^3/uL (4.0-10.0)
[2022-07-18] VITALS (16 sets, daily range): BP systolic 127–158; BP diastolic 67–88; O2SAT 94–99
[2022-07-18] MEDS: D5W/0.45% SODIUM CHLORIDE 1,000 ML IV SCH ×4 (01:24→21:01)
[2022-07-18] MEDS: IPRATROPIUM 0.5MG/ALBUTEROL 2.5MG INH SOL UD 3ML (DUONEB) NEB SCH ×4 (01:29→21:52)
[2022-07-18] MEDS: PIPERACILLIN/TAZOBACTAM SOD 3.375 GM in D5W MINI-BAG PLUS 50 ML IV SCH ×4 (02:16→21:21)
[2022-07-18] MEDS: HYDROMORPHONE HCL 0.5 MG/ 0.5 ML SYRINGE (J1170 PER 1) IV PRN ×6 (02:30→21:21)
[2022-07-18] MEDS ORDERED: ACETAMINOPHEN 1000MG 100ML IV BAG IV ONE (04:55)
[2022-07-18] MEDS: INSULIN LISPRO (NovoLOG) PER UNIT SC SCH ×4 (06:18→23:44)
[2022-07-18 06:41] LABS: BASO % 0.2 % (0.0-1.0); EOS # 0.3 10^3/uL (0.0-0.5); EOS % 1.3 % (0.0-3.0); HEMATOCRIT 27.6 % (42.0-52.0); HEMOGLOBIN 9.3 g/dl (13.5-17.5); LYMPH # 0.8 10^3/uL (1.5-5.0); LYMPH % 3.9 % (24.0-44.0); MEAN CORPUSCULAR HEMOGLOBIN 28.4 pg (27.0-33.0); MEAN CORPUSCULAR HGB CONC 33.7 g/dl (32.0-36.5); MEAN CORPUSCULAR VOLUME 84.1 fl (80.0-96.0); MONO # 1.2 10^3/uL (0.0-0.8); NEUTROPHILS # 17.6 10^3/uL (1.5-8.5); NEUTROPHILS % 87.2 % (36.0-66.0); PLATELET COUNT, AUTOMATED 281 10^3/uL (150-450); RED BLOOD COUNT 3.28 10^6/uL (4.30-6.10); WHITE BLOOD COUNT 20.1 10^3/uL (4.0-10.0)
[2022-07-18 07:05] LABS: BLOOD UREA NITROGEN 6 MG/DL (7-18); CALCIUM LEVEL 7.3 MG/DL (8.8-10.2); CARBON DIOXIDE LEVEL 27 MEQ/L (21-32); CHLORIDE LEVEL 99 MEQ/L (98-107); CREATININE FOR GFR 0.34 MG/DL (0.70-1.30); GLOMERULAR FILTRATION RATE > 60.0 (>42); GLUCOSE, FASTING 135 MG/DL (70-100); POTASSIUM SERUM 2.9 MEQ/L (3.5-5.1); SODIUM LEVEL 132 MEQ/L (136-145)
[2022-07-18 08:40] LABS: MAGNESIUM LEVEL 1.4 MG/DL (1.8-2.4)
[2022-07-18] MEDS: PANTOPRAZOLE 40MG VIAL IV SCH ×2 (09:50→21:21)
[2022-07-18] MEDS: KCL 20MEQ IN 100ML SWI (KRUN) 20 MEQ in IV 1 EA IV SCH ×6 (09:51→11:07)
[2022-07-18] MEDS: MAG SULF 1GM/100ML (MAG RUN) 1 GM in IV 1 EA IV SCH ×2 (12:46→14:05)
[2022-07-18 14:00] LABS: POTASSIUM RANDOM URINE 45.8 MEQ/L
[2022-07-18 15:49] LABS: BASO % 0.1 % (0.0-1.0); EOS # 0.2 10^3/uL (0.0-0.5); EOS % 0.7 % (0.0-3.0); HEMATOCRIT 29.2 % (42.0-52.0); HEMOGLOBIN 9.8 g/dl (13.5-17.5); LYMPH # 0.9 10^3/uL (1.5-5.0); MEAN CORPUSCULAR HEMOGLOBIN 28.5 pg (27.0-33.0); MEAN CORPUSCULAR HGB CONC 33.6 g/dl (32.0-36.5); MEAN CORPUSCULAR VOLUME 84.9 fl (80.0-96.0); MONO # 1.3 10^3/uL (0.0-0.8); MONO % 6.1 % (2.0-8.0); NEUTROPHILS # 18.7 10^3/uL (1.5-8.5); NEUTROPHILS % 87.5 % (36.0-66.0); PLATELET COUNT, AUTOMATED 303 10^3/uL (150-450); RED BLOOD COUNT 3.44 10^6/uL (4.30-6.10); WHITE BLOOD COUNT 21.4 10^3/uL (4.0-10.0)
[2022-07-18] MEDS ORDERED: INSULIN LISPRO (NovoLOG) PER UNIT SC SCH (18:00)
[2022-07-18] MEDS ORDERED: MULTIVITAMIN -ADULT INJECTION 10 ML, ZINC/COPPER/MANGANESE/SELENIUM 1 ML, POTASSIUM CHL... IV SCH ×4 (18:00)
[2022-07-18] MEDS: MICAFUNGIN SODIUM 100 MG in D5W MINI-BAG PLUS 100 ML IV SCH (21:21)
[2022-07-19] VITALS (9 sets, daily range): BP systolic 128–160; BP diastolic 69–86; O2SAT 94–98
[2022-07-19] MEDS: HYDROMORPHONE HCL 0.5 MG/ 0.5 ML SYRINGE (J1170 PER 1) IV PRN ×6 (00:22→20:54)
[2022-07-19 00:27] LABS: BASO % 0.1 % (0.0-1.0); EOS # 0.1 10^3/uL (0.0-0.5); EOS % 0.6 % (0.0-3.0); HEMATOCRIT 27.2 % (42.0-52.0); HEMOGLOBIN 9.1 g/dl (13.5-17.5); LYMPH # 0.9 10^3/uL (1.5-5.0); LYMPH % 4.3 % (24.0-44.0); MEAN CORPUSCULAR HEMOGLOBIN 28.3 pg (27.0-33.0); MEAN CORPUSCULAR HGB CONC 33.5 g/dl (32.0-36.5); MEAN CORPUSCULAR VOLUME 84.5 fl (80.0-96.0); MONO # 1.4 10^3/uL (0.0-0.8); MONO % 6.8 % (2.0-8.0); NEUTROPHILS # 17.2 10^3/uL (1.5-8.5); NEUTROPHILS % 86.5 % (36.0-66.0); PLATELET COUNT, AUTOMATED 311 10^3/uL (150-450); RED BLOOD COUNT 3.22 10^6/uL (4.30-6.10); WHITE BLOOD COUNT 19.9 10^3/uL (4.0-10.0)
[2022-07-19] MEDS ORDERED: ACETAMINOPHEN 1000MG 100ML IV BAG IV ONE (01:45)
[2022-07-19] MEDS: PIPERACILLIN/TAZOBACTAM SOD 3.375 GM in D5W MINI-BAG PLUS 50 ML IV SCH ×4 (02:13→20:54)
[2022-07-19] MEDS: IPRATROPIUM 0.5MG/ALBUTEROL 2.5MG INH SOL UD 3ML (DUONEB) NEB SCH ×4 (02:45→19:32)
[2022-07-19] MEDS ORDERED: diphenhydrAMINE 50MG/ML VIAL IV ONE (04:20)
[2022-07-19 06:22] LABS: HEMATOCRIT 24.7 % (42.0-52.0); HEMOGLOBIN 8.4 g/dl (13.5-17.5); MEAN CORPUSCULAR HEMOGLOBIN 28.5 pg (27.0-33.0); MEAN CORPUSCULAR VOLUME 83.7 fl (80.0-96.0); PLATELET COUNT, AUTOMATED 288 10^3/uL (150-450); RED BLOOD COUNT 2.95 10^6/uL (4.30-6.10); WHITE BLOOD COUNT 17.7 10^3/uL (4.0-10.0)
[2022-07-19] MEDS: INSULIN LISPRO (NovoLOG) PER UNIT SC SCH ×3 (06:32→17:48)
[2022-07-19 07:00] LABS: BLOOD UREA NITROGEN 5 MG/DL (7-18); CALCIUM LEVEL 6.9 MG/DL (8.8-10.2); CARBON DIOXIDE LEVEL 25 MEQ/L (21-32); CHLORIDE LEVEL 104 MEQ/L (98-107); CREATININE FOR GFR 0.33 MG/DL (0.70-1.30); GLOMERULAR FILTRATION RATE > 60.0 (>42); GLUCOSE, FASTING 173 MG/DL (70-100); POTASSIUM SERUM 2.9 MEQ/L (3.5-5.1); SODIUM LEVEL 137 MEQ/L (136-145)
[2022-07-19] MEDS: KCL 20MEQ IN 100ML SWI (KRUN) 20 MEQ in IV 1 EA IV SCH ×6 (09:05→11:23)
[2022-07-19] MEDS: PANTOPRAZOLE 40MG VIAL IV SCH ×2 (09:06→20:54)
[2022-07-19] MEDS: D5W/0.45% SODIUM CHLORIDE 1,000 ML IV SCH ×3 (09:07→23:19)
[2022-07-19 10:05] LABS: ALBUMIN 1.4 GM/DL (3.2-5.2); ALKALINE PHOSPHATASE 63 U/L (45-117); ALT/SGPT 22 U/L (12-78); AST/SGOT 30 U/L (7-37); BILIRUBIN,DIRECT 0.2 MG/DL (0.0-0.2); BILIRUBIN,TOTAL 0.4 MG/DL (0.2-1.0); MAGNESIUM LEVEL 1.2 MG/DL (1.8-2.4); TOTAL PROTEIN 4.5 GM/DL (6.4-8.2)
[2022-07-19] MEDS: MAG SULF 1GM/100ML (MAG RUN) 1 GM in IV 1 EA IV SCH ×2 (14:15→15:52)
[2022-07-19] MEDS ORDERED: CALCIUM GLUCONATE 1,000 MG in D5W MINI-BAG PLUS 100 ML IV ONE (15:00)
[2022-07-19] MEDS ORDERED: POTASSIUM CHLORIDE IV SCH ×2 (18:00)
[2022-07-19] MEDS ORDERED: [UNRECOGNIZED DRUG - OTHER] IV SCH (18:00)
[2022-07-19] MEDS ORDERED: DEX IV SCH (18:00)
[2022-07-19] MEDS ORDERED: MAGNESIUM SULFATE IV SCH (18:00)
[2022-07-19] MEDS ORDERED: CALC IV SCH (18:00)
[2022-07-19] MEDS ORDERED: AMINO AC IV SCH (18:00)
[2022-07-19] MEDS ORDERED: ELECTROLYTE IV SCH (18:00)
[2022-07-19] MEDS: MICAFUNGIN SODIUM 100 MG in D5W MINI-BAG PLUS 100 ML IV SCH (20:54)
[2022-07-20] VITALS (19 sets, daily range): BP systolic 137–145; BP diastolic 77–83; O2SAT 97–100
[2022-07-20] MEDS: INSULIN LISPRO (NovoLOG) PER UNIT SC SCH ×5 (00:18→23:52)
[2022-07-20] MEDS: HYDROMORPHONE HCL 0.5 MG/ 0.5 ML SYRINGE (J1170 PER 1) IV PRN ×7 (00:19→21:32)
[2022-07-20] MEDS: IPRATROPIUM 0.5MG/ALBUTEROL 2.5MG INH SOL UD 3ML (DUONEB) NEB SCH ×4 (01:32→20:18)
[2022-07-20] MEDS: PIPERACILLIN/TAZOBACTAM SOD 3.375 GM in D5W MINI-BAG PLUS 50 ML IV SCH ×4 (02:05→21:30)
[2022-07-20] MEDS ORDERED: fentaNYL 100 MCG/2 ML INJECTION IV ONE (07:50)
[2022-07-20] MEDS: PANTOPRAZOLE 40MG VIAL IV SCH ×2 (08:16→21:30)
[2022-07-20 09:32] LABS: BASO % 0.1 % (0.0-1.0); EOS # 0.2 10^3/uL (0.0-0.5); EOS % 1.1 % (0.0-3.0); HEMATOCRIT 28.7 % (42.0-52.0); HEMOGLOBIN 9.5 g/dl (13.5-17.5); LYMPH # 0.6 10^3/uL (1.5-5.0); LYMPH % 4.2 % (24.0-44.0); MEAN CORPUSCULAR HEMOGLOBIN 28.4 pg (27.0-33.0); MEAN CORPUSCULAR HGB CONC 33.1 g/dl (32.0-36.5); MEAN CORPUSCULAR VOLUME 85.9 fl (80.0-96.0); MONO % 13.7 % (2.0-8.0); NEUTROPHILS # 12.1 10^3/uL (1.5-8.5); NEUTROPHILS % 79.6 % (36.0-66.0); PLATELET COUNT, AUTOMATED 390 10^3/uL (150-450); RED BLOOD COUNT 3.34 10^6/uL (4.30-6.10); WHITE BLOOD COUNT 15.2 10^3/uL (4.0-10.0)
[2022-07-20 09:56] LABS: MONO # 2.1 10^3/uL (0.0-0.8)
[2022-07-20] MEDS: D5W/0.45% SODIUM CHLORIDE 1,000 ML IV SCH ×2 (10:08→23:18)
[2022-07-20 10:15] LABS: ALBUMIN 1.6 GM/DL (3.2-5.2); ALKALINE PHOSPHATASE 69 U/L (45-117); ALT/SGPT 22 U/L (12-78); AST/SGOT 32 U/L (7-37); BILIRUBIN,DIRECT 0.2 MG/DL (0.0-0.2); BILIRUBIN,TOTAL 0.4 MG/DL (0.2-1.0); BLOOD UREA NITROGEN 4 MG/DL (7-18); CALCIUM LEVEL 7.6 MG/DL (8.8-10.2); CARBON DIOXIDE LEVEL 23 MEQ/L (21-32); CHLORIDE LEVEL 100 MEQ/L (98-107); CREATININE FOR GFR 0.35 MG/DL (0.70-1.30); GLOMERULAR FILTRATION RATE > 60.0 (>42); GLUCOSE, FASTING 114 MG/DL (70-100); POTASSIUM SERUM 3.6 MEQ/L (3.5-5.1); SODIUM LEVEL 133 MEQ/L (136-145); TOTAL PROTEIN 5.1 GM/DL (6.4-8.2)
[2022-07-20] MEDS: ACETAMINOPHEN 1000MG 100ML IV BAG IV SCH ×4 (10:19→23:18)
[2022-07-20] MEDS: KETOROLAC 30 MG/ML 1ML VIAL IV SCH ×3 (12:13→23:52)
[2022-07-20] MEDS ORDERED: FAT EMULSION IV 250 ML IV ONE (18:00)
[2022-07-20] MEDS ORDERED: MULTIVITAMIN -ADULT INJECTION 10 ML, ZINC/COPPER/MANGANESE/SELENIUM 1 ML, POTASSIUM CHL... IV SCH ×5 (18:00)
[2022-07-20] MEDS: MICAFUNGIN SODIUM 100 MG in D5W MINI-BAG PLUS 100 ML IV SCH (21:31)
[2022-07-21] VITALS (26 sets, daily range): BP systolic 127–160; BP diastolic 78–90; O2SAT 84–100
[2022-07-21] MEDS: IPRATROPIUM 0.5MG/ALBUTEROL 2.5MG INH SOL UD 3ML (DUONEB) NEB SCH ×4 (01:05→19:20)
[2022-07-21] MEDS: ACETAMINOPHEN 1000MG 100ML IV BAG IV SCH ×6 (02:30→23:56)
[2022-07-21] MEDS: PIPERACILLIN/TAZOBACTAM SOD 3.375 GM in D5W MINI-BAG PLUS 50 ML IV SCH (02:31)
[2022-07-21] MEDS: HYDROMORPHONE HCL 0.5 MG/ 0.5 ML SYRINGE (J1170 PER 1) IV PRN ×4 (02:34→21:35)
[2022-07-21 05:45] LABS: BASO % 0.3 % (0.0-1.0); EOS # 0.4 10^3/uL (0.0-0.5); EOS % 2.8 % (0.0-3.0); HEMATOCRIT 31.4 % (42.0-52.0); HEMOGLOBIN 10.4 g/dl (13.5-17.5); LYMPH # 0.9 10^3/uL (1.5-5.0); LYMPH % 6.8 % (24.0-44.0); MEAN CORPUSCULAR HEMOGLOBIN 28.5 pg (27.0-33.0); MEAN CORPUSCULAR HGB CONC 33.1 g/dl (32.0-36.5); MONO # 1.7 10^3/uL (0.0-0.8); MONO % 13.1 % (2.0-8.0); NEUTROPHILS # 9.9 10^3/uL (1.5-8.5); NEUTROPHILS % 75.7 % (36.0-66.0); PLATELET COUNT, AUTOMATED 457 10^3/uL (150-450); RED BLOOD COUNT 3.65 10^6/uL (4.30-6.10); WHITE BLOOD COUNT 13.1 10^3/uL (4.0-10.0)
[2022-07-21 06:30] LABS: ALBUMIN 1.6 GM/DL (3.2-5.2); BILIRUBIN,DIRECT 0.2 MG/DL (0.0-0.2); BILIRUBIN,TOTAL 0.4 MG/DL (0.2-1.0); C REACTIVE PROTEIN QUANTITATIV 17.6 MG/DL (0.00-0.30); TOTAL PROTEIN 5.6 GM/DL (6.4-8.2)
[2022-07-21] MEDS: INSULIN LISPRO (NovoLOG) PER UNIT SC SCH ×3 (06:39→17:16)
[2022-07-21] MEDS: KETOROLAC 30 MG/ML 1ML VIAL IV SCH ×3 (06:40→23:57)
[2022-07-21] MEDS: PANTOPRAZOLE 40MG VIAL IV SCH ×2 (08:59→21:34)
[2022-07-21] MEDS ORDERED: NALOXONE INJ 0.4MG/1ML VIAL (J2310 PER 1MG) IV PRN (09:00)
[2022-07-21] MEDS ORDERED: EPIDURAL/PCA KEYS XX PRN (09:00)
[2022-07-21] MEDS ORDERED: NS 1,000 ML IV SCH (09:00)
[2022-07-21] MEDS ORDERED: diphenhydrAMINE 50MG/ML VIAL IV PRN (09:00)
[2022-07-21] MEDS ORDERED: KETOROLAC 30 MG/ML 1ML VIAL IV PRN (09:05)
[2022-07-21] MEDS ORDERED: FENTANYL DRIP LOCK BOX KEY 1 EACH XX PRN (10:05)
[2022-07-21] MEDS ORDERED: MORPHINE 1MG/ML IN 0.9% NACL 100ML IV BAG IV PRN (12:00)
[2022-07-21] MEDS: fentaNYL CITRATE/NaCl 1,000 MCG in IV 1 EA IV SCH ×2 (12:18→16:48)
[2022-07-21] MEDS: D5W/0.45% SODIUM CHLORIDE 1,000 ML IV SCH (12:18)
[2022-07-21] MEDS: fentaNYL 100 MCG/2 ML INJECTION IV PRN ×3 (16:30→16:56)
[2022-07-21] MEDS ORDERED: AMINO AC/ELECTROLYTE/DEX/CALC 2,000 ML IV SCH (18:00)
[2022-07-21] MEDS ORDERED: FAT EMULSION IV 250 ML IV ONE (18:00)
[2022-07-21] MEDS: MICAFUNGIN SODIUM 100 MG in D5W MINI-BAG PLUS 100 ML IV SCH (21:32)
[2022-07-21] MEDS: LEVEMIR (INSULIN DETEMIR) 1 UNITS/0.01ML SC SCH (21:33)
[2022-07-21] MEDS ORDERED: diphenhydrAMINE 50MG/ML VIAL IV ONE (23:35)
[2022-07-22] VITALS (24 sets, daily range): BP systolic 140–165; BP diastolic 81–98; O2SAT 79–100
[2022-07-22] MEDS: INSULIN LISPRO (NovoLOG) PER UNIT SC SCH ×5 (00:15→23:37)
[2022-07-22] MEDS: IPRATROPIUM 0.5MG/ALBUTEROL 2.5MG INH SOL UD 3ML (DUONEB) NEB SCH ×4 (02:59→19:12)
[2022-07-22] MEDS: ACETAMINOPHEN 1000MG 100ML IV BAG IV SCH ×4 (06:19→23:37)
[2022-07-22] MEDS: KETOROLAC 30 MG/ML 1ML VIAL IV SCH ×4 (06:20→23:37)
[2022-07-22] MEDS: D5W/0.45% SODIUM CHLORIDE 1,000 ML IV SCH (06:20)
[2022-07-22 06:51] LABS: BASO % 0.3 % (0.0-1.0); EOS # 0.2 10^3/uL (0.0-0.5); EOS % 1.6 % (0.0-3.0); HEMATOCRIT 31.4 % (42.0-52.0); HEMOGLOBIN 10.3 g/dl (13.5-17.5); LYMPH # 1.2 10^3/uL (1.5-5.0); LYMPH % 8.8 % (24.0-44.0); MEAN CORPUSCULAR HEMOGLOBIN 28.9 pg (27.0-33.0); MEAN CORPUSCULAR HGB CONC 32.8 g/dl (32.0-36.5); MONO % 12.6 % (2.0-8.0); NEUTROPHILS # 9.8 10^3/uL (1.5-8.5); NEUTROPHILS % 74.8 % (36.0-66.0); PLATELET COUNT, AUTOMATED 585 10^3/uL (150-450); RED BLOOD COUNT 3.57 10^6/uL (4.30-6.10); WHITE BLOOD COUNT 13.1 10^3/uL (4.0-10.0)
[2022-07-22 07:20] LABS: ALBUMIN 1.7 GM/DL (3.2-5.2); ALKALINE PHOSPHATASE 94 U/L (45-117); ALT/SGPT 20 U/L (12-78); AST/SGOT 21 U/L (7-37); BILIRUBIN,DIRECT 0.2 MG/DL (0.0-0.2); BILIRUBIN,TOTAL 0.3 MG/DL (0.2-1.0); TOTAL PROTEIN 6.1 GM/DL (6.4-8.2)
[2022-07-22 07:26] LABS: MONO # 1.6 10^3/uL (0.0-0.8)
[2022-07-22 07:37] LABS: BLOOD UREA NITROGEN 8 MG/DL (7-18); CALCIUM LEVEL 7.9 MG/DL (8.8-10.2); CARBON DIOXIDE LEVEL 23 MEQ/L (21-32); CHLORIDE LEVEL 98 MEQ/L (98-107); CREATININE FOR GFR 0.33 MG/DL (0.70-1.30); GLOMERULAR FILTRATION RATE > 60.0 (>42); GLUCOSE, FASTING 114 MG/DL (70-100); POTASSIUM SERUM 4.2 MEQ/L (3.5-5.1); SODIUM LEVEL 131 MEQ/L (136-145)
[2022-07-22] MEDS: PANTOPRAZOLE 40MG VIAL IV SCH ×2 (08:16→20:22)
[2022-07-22] MEDS: HYDROMORPHONE HCL 0.5 MG/ 0.5 ML SYRINGE (J1170 PER 1) IV PRN ×3 (08:18→18:33)
[2022-07-22] MEDS: MAG SULF 1GM/100ML (MAG RUN) 1 GM in IV 1 EA IV SCH ×4 (12:02→16:05)
[2022-07-22] MEDS ORDERED: FAT EMULSION IV 250 ML IV ONE (18:00)
[2022-07-22] MEDS ORDERED: AMINO AC/ELECTROLYTE/DEX/CALC 2,000 ML IV SCH (18:00)
[2022-07-22] MEDS: fentaNYL CITRATE/NaCl 1,000 MCG in IV 1 EA IV SCH (18:26)
[2022-07-22] MEDS: LEVEMIR (INSULIN DETEMIR) 1 UNITS/0.01ML SC SCH (20:22)
[2022-07-22] MEDS: MICAFUNGIN SODIUM 100 MG in D5W MINI-BAG PLUS 100 ML IV SCH (20:22)
[2022-07-23] VITALS (7 sets, daily range): BP systolic 142–170; BP diastolic 85–94
[2022-07-23] MEDS: HYDROMORPHONE HCL 0.5 MG/ 0.5 ML SYRINGE (J1170 PER 1) IV PRN ×6 (01:44→20:16)
[2022-07-23] MEDS: IPRATROPIUM 0.5MG/ALBUTEROL 2.5MG INH SOL UD 3ML (DUONEB) NEB SCH ×4 (02:16→19:18)
[2022-07-23] MEDS: KETOROLAC 30 MG/ML 1ML VIAL IV SCH ×4 (05:17→22:56)
[2022-07-23] MEDS: ACETAMINOPHEN 1000MG 100ML IV BAG IV SCH ×3 (05:17→18:00)
[2022-07-23 05:37] LABS: BASO % 0.3 % (0.0-1.0); EOS # 0.2 10^3/uL (0.0-0.5); EOS % 1.9 % (0.0-3.0); HEMATOCRIT 32.4 % (42.0-52.0); HEMOGLOBIN 10.2 g/dl (13.5-17.5); LYMPH # 1.3 10^3/uL (1.5-5.0); LYMPH % 10.3 % (24.0-44.0); MEAN CORPUSCULAR HEMOGLOBIN 28.1 pg (27.0-33.0); MEAN CORPUSCULAR HGB CONC 31.5 g/dl (32.0-36.5); MEAN CORPUSCULAR VOLUME 89.3 fl (80.0-96.0); MONO # 1.5 10^3/uL (0.0-0.8); MONO % 11.6 % (2.0-8.0); NEUTROPHILS # 9.3 10^3/uL (1.5-8.5); NEUTROPHILS % 73.6 % (36.0-66.0); PLATELET COUNT, AUTOMATED 674 10^3/uL (150-450); RED BLOOD COUNT 3.63 10^6/uL (4.30-6.10); WHITE BLOOD COUNT 12.7 10^3/uL (4.0-10.0)
[2022-07-23] MEDS: INSULIN LISPRO (NovoLOG) PER UNIT SC SCH ×3 (05:52→17:59)
[2022-07-23 06:16] LABS: ALBUMIN 1.6 GM/DL (3.2-5.2); ALKALINE PHOSPHATASE 102 U/L (45-117); ALT/SGPT 18 U/L (12-78); AST/SGOT 27 U/L (7-37); BILIRUBIN,DIRECT < 0.1 MG/DL (0.0-0.2); BILIRUBIN,TOTAL 0.2 MG/DL (0.2-1.0); BLOOD UREA NITROGEN 12 MG/DL (7-18); CALCIUM LEVEL 8.4 MG/DL (8.8-10.2); CARBON DIOXIDE LEVEL 25 MEQ/L (21-32); CHLORIDE LEVEL 103 MEQ/L (98-107); CREATININE FOR GFR 0.42 MG/DL (0.70-1.30); GLOMERULAR FILTRATION RATE > 60.0 (>42); GLUCOSE, FASTING 112 MG/DL (70-100); POTASSIUM SERUM 4.2 MEQ/L (3.5-5.1); SODIUM LEVEL 132 MEQ/L (136-145); TOTAL PROTEIN 6.7 GM/DL (6.4-8.2)
[2022-07-23] MEDS: PANTOPRAZOLE 40MG VIAL IV SCH ×2 (08:19→20:16)
[2022-07-23] MEDS ORDERED: GASTROGRAFIN SOLUTION 30ML As Ordered ONE ×2 (09:13→09:21)
[2022-07-23] MEDS ORDERED: OCTREOTIDE ACETATE 100MCG/ML VIAL **IV ADMINISTRATION ONLY IV SCH (14:00)
[2022-07-23] MEDS ORDERED: INSULIN LISPRO (NovoLOG) PER UNIT SC SCH (18:00)
[2022-07-23] MEDS ORDERED: MULTIVITAMIN -ADULT INJECTION 10 ML, ZINC/COPPER/MANGANESE/SELENIUM 1 ML in AMINO AC/EL... IV SCH (18:00)
[2022-07-23] MEDS: MICAFUNGIN SODIUM 100 MG in D5W MINI-BAG PLUS 100 ML IV SCH (20:17)
[2022-07-23] MEDS: LEVEMIR (INSULIN DETEMIR) 1 UNITS/0.01ML SC SCH (21:37)
[2022-07-24] VITALS (30 sets, daily range): BP systolic 113–194; BP diastolic 62–116; O2SAT 95–99
[2022-07-24] MEDS: HYDROMORPHONE HCL 0.5 MG/ 0.5 ML SYRINGE (J1170 PER 1) IV PRN ×3 (00:04→08:11)
[2022-07-24] MEDS: ACETAMINOPHEN 1000MG 100ML IV BAG IV SCH ×3 (00:11→11:56)
[2022-07-24] MEDS: OCTREOTIDE ACETATE 100MCG/ML VIAL **IV ADMINISTRATION ONLY IV SCH ×3 (01:40→18:32)
[2022-07-24] MEDS: IPRATROPIUM 0.5MG/ALBUTEROL 2.5MG INH SOL UD 3ML (DUONEB) NEB SCH ×3 (02:04→15:55)
[2022-07-24] MEDS: KETOROLAC 30 MG/ML 1ML VIAL IV SCH ×2 (05:21→11:16)
[2022-07-24 05:43] LABS: BASO # 0.1 10^3/uL (0.0-0.2); BASO % 0.6 % (0.0-1.0); EOS # 0.1 10^3/uL (0.0-0.5); EOS % 0.8 % (0.0-3.0); HEMATOCRIT 31.4 % (42.0-52.0); HEMOGLOBIN 10.1 g/dl (13.5-17.5); LYMPH # 1.2 10^3/uL (1.5-5.0); LYMPH % 8.2 % (24.0-44.0); MEAN CORPUSCULAR HEMOGLOBIN 28.4 pg (27.0-33.0); MEAN CORPUSCULAR HGB CONC 32.2 g/dl (32.0-36.5); MEAN CORPUSCULAR VOLUME 88.2 fl (80.0-96.0); MONO % 11.1 % (2.0-8.0); NEUTROPHILS # 11.4 10^3/uL (1.5-8.5); NEUTROPHILS % 77.5 % (36.0-66.0); PLATELET COUNT, AUTOMATED 737 10^3/uL (150-450); RED BLOOD COUNT 3.56 10^6/uL (4.30-6.10); WHITE BLOOD COUNT 14.7 10^3/uL (4.0-10.0)
[2022-07-24 05:52] LABS: MONO # 1.6 10^3/uL (0.0-0.8)
[2022-07-24 06:10] LABS: ALBUMIN 1.8 GM/DL (3.2-5.2); ALKALINE PHOSPHATASE 114 U/L (45-117); ALT/SGPT 18 U/L (12-78); AST/SGOT 23 U/L (7-37); BILIRUBIN,DIRECT 0.2 MG/DL (0.0-0.2); BILIRUBIN,TOTAL 0.4 MG/DL (0.2-1.0); BLOOD UREA NITROGEN 22 MG/DL (7-18); CALCIUM LEVEL 8.2 MG/DL (8.8-10.2); CARBON DIOXIDE LEVEL 23 MEQ/L (21-32); CHLORIDE LEVEL 102 MEQ/L (98-107); CREATININE FOR GFR 0.42 MG/DL (0.70-1.30); GLOMERULAR FILTRATION RATE > 60.0 (>42); GLUCOSE, FASTING 133 MG/DL (70-100); POTASSIUM SERUM 4.4 MEQ/L (3.5-5.1); SODIUM LEVEL 132 MEQ/L (136-145); TOTAL PROTEIN 6.3 GM/DL (6.4-8.2)
[2022-07-24] MEDS: INSULIN LISPRO (NovoLOG) PER UNIT SC SCH ×5 (06:11→23:53)
[2022-07-24] MEDS: PANTOPRAZOLE 40MG VIAL IV SCH ×2 (08:44→20:24)
[2022-07-24] MEDS ORDERED: ROCURONIUM BROMIDE 50 MG/5 ML VIAL As Ordered ONE ×2 (12:59→14:29)
[2022-07-24] MEDS ORDERED: propofoL 200 MG/20 ML VIAL As Ordered ONE (12:59)
[2022-07-24] MEDS ORDERED: LIDOCAINE 2% 100MG/5ML SDV (FOR ANES.) As Ordered ONE (12:59)
[2022-07-24] MEDS ORDERED: MIDAZOLAM INJ 2MG/2ML VIAL (J2250 PER 1MG) As Ordered ONE (13:00)
[2022-07-24] MEDS ORDERED: fentaNYL 250 MCG/5 ML INJECTION As Ordered ONE (13:00)
[2022-07-24] MEDS ORDERED: ZOSYN 3.375GM VIAL As Ordered ONE (13:52)
[2022-07-24] MEDS ORDERED: dexameTHASONE 4 MG/ML 1ML VIAL (J1100 PER 1MG) As Ordered ONE (14:01)
[2022-07-24] MEDS ORDERED: PHENYLephrine 500MCG 5ML (100MCG/ML) SYRINGE As Ordered ONE (14:01)
[2022-07-24] MEDS ORDERED: BUPIVACAINE HCL 0.25% 10ML VIAL As Ordered ONE (14:09)
[2022-07-24] MEDS ORDERED: BUPIVACAINE LIPOSOME/PF 1.3% 20ML VIAL (13.3MG/ML)(EXPAREL) As Ordered ONE (14:09)
[2022-07-24] MEDS ORDERED: ONDANSETRON 4MG 2ML VIAL As Ordered ONE (14:18)
[2022-07-24] MEDS ORDERED: SUGAMMADEX SODIUM 500 MG/5 ML VIAL (BRIDION) As Ordered ONE (14:18)
[2022-07-24] MEDS ORDERED: BOTOX THERAPEUTIC 100 UNIT VIAL (J0585 PER 1 UNIT) As Ordered ONE (15:27)
[2022-07-24] MEDS ORDERED: HYDROmorphone HCL 2MG/ML 1ML VIAL As Ordered ONE (15:47)
[2022-07-24] MEDS ORDERED: fentaNYL 100 MCG/2 ML INJECTION IV PRN (16:30)
[2022-07-24] MEDS ORDERED: HYDROMORPHONE HCL 0.5 MG/ 0.5 ML SYRINGE (J1170 PER 1) IV PRN (16:30)
[2022-07-24 16:46] LABS: ABG BASE EXCESS -4.2 (-2.0-2.0); ABG HCO3 21.5 MEQ/L (22.0-26.0); ABG O2 SATURATION 99.5 % (95.0-99.0); ABG PARTIAL PRESSURE CO2 41.9 mmHg (35.0-45.0); ABG PARTIAL PRESSURE O2 223.6 mmHg (75.0-100.0); ABG TOTAL CO2 22.8 MEQ/L (23.0-31.0); ABG pH (ARTERIAL) 7.328 UNITS (7.350-7.450)
[2022-07-24] MEDS ORDERED: PROPOFOL 1,000 MG/100 ML VIAL As Ordered ONE (16:47)
[2022-07-24] MEDS ORDERED: propofoL 1,000 MG in IV 1 EA IV SCH (16:55)
[2022-07-24] MEDS ORDERED: IPRATROPIUM 0.5MG/ALBUTEROL 2.5MG INH SOL UD 3ML (DUONEB) NEB PRN (17:00)
[2022-07-24] MEDS: propofoL 1,000 MG in IV 1 EA IV SCH ×2 (17:03→21:34)
[2022-07-24] MEDS ORDERED: FENTANYL DRIP LOCK BOX KEY 1 EACH XX PRN (17:45)
[2022-07-24] MEDS ORDERED: AMINO AC/ELECTROLYTE/DEX/CALC 2,000 ML IV SCH (18:00)
[2022-07-24] MEDS ORDERED: FAT EMULSION IV 250 ML IV ONE (18:00)
[2022-07-24] MEDS: CISATRACURIUM 200 MG in NS 480 ML IV SCH (18:32)
[2022-07-24] MEDS: fentaNYL CITRATE/NaCl 1,000 MCG in IV 1 EA IV SCH (18:32)
[2022-07-24] MEDS: HEPARIN SOD (PORCINE) 5000UNITS/ML 1ML VIAL/SYRINGE SQ SCH (20:24)
[2022-07-24] MEDS: MICAFUNGIN SODIUM 100 MG in D5W MINI-BAG PLUS 100 ML IV SCH (20:25)
[2022-07-24] MEDS: fentaNYL 100 MCG/2 ML INJECTION IV PRN (22:41)
[2022-07-25] VITALS (80 sets, daily range): BP systolic 80–196; BP diastolic 53–117
[2022-07-25] MEDS: fentaNYL 100 MCG/2 ML INJECTION IV PRN ×5 (00:07→12:15)
[2022-07-25] MEDS ORDERED: MORPHINE 4 MG/ML 1ML VIAL IV ONE (01:00)
[2022-07-25] MEDS: OCTREOTIDE ACETATE 100MCG/ML VIAL **IV ADMINISTRATION ONLY IV SCH ×3 (02:15→18:21)
[2022-07-25] MEDS: propofoL 1,000 MG in IV 1 EA IV SCH ×6 (02:15→22:01)
[2022-07-25 05:26] LABS: BASO # 0.1 10^3/uL (0.0-0.2); BASO % 0.5 % (0.0-1.0); EOS # 0.1 10^3/uL (0.0-0.5); EOS % 0.4 % (0.0-3.0); HEMATOCRIT 31.9 % (42.0-52.0); LYMPH # 1.4 10^3/uL (1.5-5.0); LYMPH % 9.1 % (24.0-44.0); MEAN CORPUSCULAR HGB CONC 31.3 g/dl (32.0-36.5); MEAN CORPUSCULAR VOLUME 89.4 fl (80.0-96.0); MONO # 1.5 10^3/uL (0.0-0.8); MONO % 9.5 % (2.0-8.0); NEUTROPHILS # 12.1 10^3/uL (1.5-8.5); NEUTROPHILS % 78.1 % (36.0-66.0); PLATELET COUNT, AUTOMATED 794 10^3/uL (150-450); RED BLOOD COUNT 3.57 10^6/uL (4.30-6.10); WHITE BLOOD COUNT 15.5 10^3/uL (4.0-10.0)
[2022-07-25 05:43] LABS: ABG BASE EXCESS -1.9 (-2.0-2.0); ABG HCO3 22.9 MEQ/L (22.0-26.0); ABG O2 SATURATION 96.2 % (95.0-99.0); ABG PARTIAL PRESSURE CO2 38.8 mmHg (35.0-45.0); ABG PARTIAL PRESSURE O2 83.8 mmHg (75.0-100.0); ABG STANDARD HCO3 22.9 MEQ/L (22.0-26.0); ABG pH (ARTERIAL) 7.388 UNITS (7.350-7.450)
[2022-07-25 06:02] LABS: ALBUMIN 1.7 GM/DL (3.2-5.2); ALKALINE PHOSPHATASE 117 U/L (45-117); ALT/SGPT 16 U/L (12-78); AST/SGOT 22 U/L (7-37); BILIRUBIN,DIRECT 0.1 MG/DL (0.0-0.2); BILIRUBIN,TOTAL 0.2 MG/DL (0.2-1.0); BLOOD UREA NITROGEN 19 MG/DL (7-18); CALCIUM LEVEL 8.5 MG/DL (8.8-10.2); CARBON DIOXIDE LEVEL 26 MEQ/L (21-32); CHLORIDE LEVEL 100 MEQ/L (98-107); CREATININE FOR GFR 0.44 MG/DL (0.70-1.30); GLOMERULAR FILTRATION RATE > 60.0 (>42); GLUCOSE, FASTING 175 MG/DL (70-100); POTASSIUM SERUM 5.2 MEQ/L (3.5-5.1); SODIUM LEVEL 130 MEQ/L (136-145); TOTAL PROTEIN 6.4 GM/DL (6.4-8.2)
[2022-07-25] MEDS: INSULIN LISPRO (NovoLOG) PER UNIT SC SCH ×4 (06:15→23:16)
[2022-07-25] MEDS: PANTOPRAZOLE 40MG VIAL IV SCH ×2 (08:48→21:14)
[2022-07-25] MEDS: HEPARIN SOD (PORCINE) 5000UNITS/ML 1ML VIAL/SYRINGE SQ SCH ×2 (08:49→21:14)
[2022-07-25] MEDS: CISATRACURIUM 200 MG in NS 480 ML IV SCH ×2 (09:29→22:01)
[2022-07-25] MEDS: MIDAZOLAM INJ 2MG/2ML VIAL (J2250 PER 1MG) IV PRN ×2 (12:44→14:22)
[2022-07-25] MEDS ORDERED: fentaNYL 100 MCG/2 ML INJECTION IV ONE (13:15)
[2022-07-25 13:18] LABS: HEMATOCRIT 35.6 % (42.0-52.0); HEMOGLOBIN 11.1 g/dl (13.5-17.5)
[2022-07-25] MEDS ORDERED: LIDOCAINE 1% MDV 20ML VIAL As Ordered ONE (13:21)
[2022-07-25] MEDS ORDERED: NS 1,000 ML IV SCH (13:35)
[2022-07-25] MEDS ORDERED: ACETAMINOPHEN 1000MG 100ML IV BAG IV ONE (14:15)
[2022-07-25 14:37] LABS: ALBUMIN 1.7 GM/DL (3.2-5.2); ALKALINE PHOSPHATASE 166 U/L (45-117); ALT/SGPT 19 U/L (12-78); AST/SGOT 33 U/L (7-37); BILIRUBIN,TOTAL 0.4 MG/DL (0.2-1.0); BLOOD UREA NITROGEN 18 MG/DL (7-18); CALCIUM LEVEL 8.7 MG/DL (8.8-10.2); CARBON DIOXIDE LEVEL 25 MEQ/L (21-32); CHLORIDE LEVEL 100 MEQ/L (98-107); CREATININE FOR GFR 0.49 MG/DL (0.70-1.30); GLOMERULAR FILTRATION RATE > 60.0 (>42); GLUCOSE, FASTING 168 MG/DL (70-100); SODIUM LEVEL 129 MEQ/L (136-145); TOTAL PROTEIN 6.6 GM/DL (6.4-8.2)
[2022-07-25] MEDS ORDERED: DEXTROSE 50% 50 ML SYRINGE IV STA (14:50)
[2022-07-25] MEDS ORDERED: HumuLIN R (REGULAR) INSULIN (NovoLIN R) **100U/ML** PER UNIT IV STA (14:50)
[2022-07-25] MEDS ORDERED: LR 1,000 ML IV ONE ×2 (15:00→17:20)
[2022-07-25] MEDS: MEROPENEM INJ 1 GM in IV 1 EA IV SCH ×3 (15:02→23:01)
[2022-07-25 15:15] LABS: ABG BASE EXCESS -6.3 (-2.0-2.0); ABG HCO3 20.3 MEQ/L (22.0-26.0); ABG O2 SATURATION 95.9 % (95.0-99.0); ABG PARTIAL PRESSURE CO2 44.3 mmHg (35.0-45.0); ABG PARTIAL PRESSURE O2 89.5 mmHg (75.0-100.0); ABG STANDARD HCO3 19.3 MEQ/L (22.0-26.0); ABG TOTAL CO2 21.6 MEQ/L (23.0-31.0); ABG pH (ARTERIAL) 7.278 UNITS (7.350-7.450)
[2022-07-25] MEDS ORDERED: VANCOMYCIN HCL 750 MG, VIAL MATE ADAPTER 1 EACH in D5W 250 ML IV SCH (16:00)
[2022-07-25] MEDS: MIDAZOLAM 100MG/100ML-0.9%NACL 100 MG in IV 1 EA IV SCH ×2 (16:11→22:00)
[2022-07-25] MEDS: fentaNYL CITRATE/NaCl 1,000 MCG in IV 1 EA IV SCH (16:16)
[2022-07-25] MEDS ORDERED: VANCOMYCIN HCL 750 MG, VIAL MATE ADAPTER 1 EACH in D5W 250 ML IV ONE ×2 (17:00→18:00)
[2022-07-25] MEDS: VANCOMYCIN HCL 750 MG, VIAL MATE ADAPTER 1 EACH in D5W 250 ML IV SCH (17:17)
[2022-07-25] MEDS: NOREPINEPHRINE 4MG IN D5 250ML 4 MG in IV 1 EA IV SCH ×4 (17:28→23:17)
[2022-07-25] MEDS ORDERED: MULTIVITAMIN -ADULT INJECTION 10 ML, ZINC/COPPER/MANGANESE/SELENIUM 1 ML in AMINO AC/EL... IV SCH (18:00)
[2022-07-25] MEDS ORDERED: FAT EMULSION IV 250 ML IV ONE (18:00)
[2022-07-25] MEDS: MICAFUNGIN SODIUM 100 MG in D5W MINI-BAG PLUS 100 ML IV SCH (19:54)
[2022-07-25 20:37] LABS: BLOOD UREA NITROGEN 18 MG/DL (7-18); CALCIUM LEVEL 8.2 MG/DL (8.8-10.2); CARBON DIOXIDE LEVEL 24 MEQ/L (21-32); CHLORIDE LEVEL 104 MEQ/L (98-107); CREATININE FOR GFR 0.47 MG/DL (0.70-1.30); GLOMERULAR FILTRATION RATE > 60.0 (>42); GLUCOSE, FASTING 164 MG/DL (70-100); POTASSIUM SERUM 5.6 MEQ/L (3.5-5.1); SODIUM LEVEL 132 MEQ/L (136-145)
[2022-07-25] MEDS: ACETAMINOPHEN 1000MG 100ML IV BAG IV PRN (23:10)
[2022-07-26] VITALS (56 sets, daily range): BP systolic 80–188; BP diastolic 50–95
[2022-07-26] MEDS: MIDAZOLAM INJ 2MG/2ML VIAL (J2250 PER 1MG) IV PRN ×6 (00:03→19:57)
[2022-07-26] MEDS: VANCOMYCIN HCL 750 MG, VIAL MATE ADAPTER 1 EACH in D5W 250 ML IV SCH (01:02)
[2022-07-26] MEDS: OCTREOTIDE ACETATE 100MCG/ML VIAL **IV ADMINISTRATION ONLY IV SCH ×3 (02:15→17:23)
[2022-07-26 03:14] LABS: BLOOD UREA NITROGEN 15 MG/DL (7-18); CREATININE FOR GFR 0.41 MG/DL (0.70-1.30); GLOMERULAR FILTRATION RATE > 60.0 (>42); GLUCOSE, FASTING 179 MG/DL (70-100)
[2022-07-26 03:15] LABS: CALCIUM LEVEL 8.1 MG/DL (8.8-10.2); CARBON DIOXIDE LEVEL 25 mmol/L (20-29); CHLORIDE LEVEL 101 MEQ/L (98-107); SODIUM LEVEL 131 MEQ/L (136-145)
[2022-07-26] MEDS: fentaNYL CITRATE/NaCl 1,000 MCG in IV 1 EA IV SCH ×2 (03:45→17:17)
[2022-07-26 05:36] LABS: ABG BASE EXCESS -2.8 (-2.0-2.0); ABG HCO3 23.4 MEQ/L (22.0-26.0); ABG O2 SATURATION 95.9 % (95.0-99.0); ABG PARTIAL PRESSURE CO2 47.2 mmHg (35.0-45.0); ABG STANDARD HCO3 22.1 MEQ/L (22.0-26.0); ABG TOTAL CO2 24.9 MEQ/L (23.0-31.0); ABG pH (ARTERIAL) 7.314 UNITS (7.350-7.450)
[2022-07-26] MEDS: INSULIN LISPRO (NovoLOG) PER UNIT SC SCH ×4 (05:37→23:53)
[2022-07-26 05:45] LABS: HEMATOCRIT 30.8 % (42.0-52.0); HEMOGLOBIN 9.8 g/dl (13.5-17.5); MEAN CORPUSCULAR HEMOGLOBIN 28.9 pg (27.0-33.0); MEAN CORPUSCULAR HGB CONC 31.8 g/dl (32.0-36.5); MEAN CORPUSCULAR VOLUME 90.9 fl (80.0-96.0); PLATELET COUNT, AUTOMATED 723 10^3/uL (150-450); RED BLOOD COUNT 3.39 10^6/uL (4.30-6.10); WHITE BLOOD COUNT 36.2 10^3/uL (4.0-10.0)
[2022-07-26 05:59] LABS: BASOPHILS 1 % (0-1); LYMPHOCYTES 4 % (16-44); MONOCYTES 6 % (0-5); NEUTROPHILS 85 % (28-66)
[2022-07-26 06:00] LABS: PLATELET ESTIMATE INCREASED (NORMAL)
[2022-07-26 06:01] LABS: ANISOCYTOSIS 1+
[2022-07-26 06:07] LABS: BLOOD UREA NITROGEN 16 MG/DL (7-18); CALCIUM LEVEL 8.4 MG/DL (8.8-10.2); CARBON DIOXIDE LEVEL 25 MEQ/L (21-32); CHLORIDE LEVEL 101 MEQ/L (98-107); GLOMERULAR FILTRATION RATE > 60.0 (>42); GLUCOSE, FASTING 169 MG/DL (70-100); POTASSIUM SERUM 5.3 MEQ/L (3.5-5.1); SODIUM LEVEL 131 MEQ/L (136-145)
[2022-07-26] MEDS: MEROPENEM INJ 1 GM in IV 1 EA IV SCH ×3 (06:38→22:07)
[2022-07-26] MEDS ORDERED: D5W/0.9% SODIUM CHLORIDE 1,000 ML IV SCH (09:45)
[2022-07-26] MEDS: PANTOPRAZOLE 40MG VIAL IV SCH ×2 (09:55→20:37)
[2022-07-26] MEDS: HEPARIN SOD (PORCINE) 5000UNITS/ML 1ML VIAL/SYRINGE SQ SCH ×2 (09:56→20:38)
[2022-07-26] MEDS: CISATRACURIUM 200 MG in NS 480 ML IV SCH ×2 (09:57→22:08)
[2022-07-26] MEDS: VANCOMYCIN HCL 1,000 MG, VIAL MATE ADAPTER 1 EACH in D5W 250 ML IV SCH ×2 (10:18→17:20)
[2022-07-26] MEDS: NOREPINEPHRINE 4MG IN D5 250ML 4 MG in IV 1 EA IV SCH ×6 (11:26→20:51)
[2022-07-26] MEDS: propofoL 1,000 MG in IV 1 EA IV SCH ×2 (11:31→23:08)
[2022-07-26] MEDS: fentaNYL 100 MCG/2 ML INJECTION IV PRN (11:57)
[2022-07-26] MEDS ORDERED: FUROSEMIDE 20MG/2ML VIAL (J1940) IV ONE (14:10)
[2022-07-26] MEDS: ACETAMINOPHEN 1000MG 100ML IV BAG IV PRN (15:10)
[2022-07-26] MEDS: MIDAZOLAM 100MG/100ML-0.9%NACL 100 MG in IV 1 EA IV SCH (16:15)
[2022-07-26] MEDS ORDERED: [UNRECOGNIZED DRUG - OTHER] IV SCH ×5 (18:00)
[2022-07-26] MEDS ORDERED: SODIUM CHLORIDE IV SCH ×5 (18:00)
[2022-07-26] MEDS ORDERED: SODIUM ACETATE IV SCH ×5 (18:00)
[2022-07-26] MEDS ORDERED: FAT EMULSION IV 250 ML IV ONE (18:00)
[2022-07-26] MEDS ORDERED: NS 500 ML IV ONE (18:35)
[2022-07-26] MEDS: MICAFUNGIN SODIUM 100 MG in D5W MINI-BAG PLUS 100 ML IV SCH (20:37)
[2022-07-27] VITALS (89 sets, daily range): BP systolic 69–183; BP diastolic 46–88
[2022-07-27] MEDS: OCTREOTIDE ACETATE 100MCG/ML VIAL **IV ADMINISTRATION ONLY IV SCH ×3 (02:01→17:33)
[2022-07-27] MEDS: VANCOMYCIN HCL 1,000 MG, VIAL MATE ADAPTER 1 EACH in D5W 250 ML IV SCH ×3 (02:01→17:33)
[2022-07-27] MEDS: propofoL 1,000 MG in IV 1 EA IV SCH ×4 (04:04→22:48)
[2022-07-27 05:02] LABS: ABG BASE EXCESS -0.8 (-2.0-2.0); ABG HCO3 25.8 MEQ/L (22.0-26.0); ABG O2 SATURATION 93.8 % (95.0-99.0); ABG PARTIAL PRESSURE CO2 52.4 mmHg (35.0-45.0); ABG STANDARD HCO3 23.7 MEQ/L (22.0-26.0); ABG TOTAL CO2 27.4 MEQ/L (23.0-31.0)
[2022-07-27] MEDS: fentaNYL CITRATE/NaCl 1,000 MCG in IV 1 EA IV SCH ×2 (05:15→16:03)
[2022-07-27 05:19] LABS: BASO # 0.1 10^3/uL (0.0-0.2); BASO % 0.3 % (0.0-1.0); EOS # 0.1 10^3/uL (0.0-0.5); EOS % 0.2 % (0.0-3.0); HEMATOCRIT 28.1 % (42.0-52.0); HEMOGLOBIN 8.8 g/dl (13.5-17.5); LYMPH # 0.9 10^3/uL (1.5-5.0); LYMPH % 2.4 % (24.0-44.0); MEAN CORPUSCULAR HEMOGLOBIN 28.9 pg (27.0-33.0); MEAN CORPUSCULAR HGB CONC 31.3 g/dl (32.0-36.5); MEAN CORPUSCULAR VOLUME 92.1 fl (80.0-96.0); MONO # 1.4 10^3/uL (0.0-0.8); MONO % 3.6 % (2.0-8.0); NEUTROPHILS # 35.2 10^3/uL (1.5-8.5); NEUTROPHILS % 91.5 % (36.0-66.0); PLATELET COUNT, AUTOMATED 499 10^3/uL (150-450); RED BLOOD COUNT 3.05 10^6/uL (4.30-6.10)
[2022-07-27 05:22] LABS: WHITE BLOOD COUNT 38.4 10^3/uL (4.0-10.0)
[2022-07-27 06:08] LABS: BLOOD UREA NITROGEN 15 MG/DL (7-18); CALCIUM LEVEL 8.1 MG/DL (8.8-10.2); CARBON DIOXIDE LEVEL 26 MEQ/L (21-32); CHLORIDE LEVEL 99 MEQ/L (98-107); CREATININE FOR GFR 0.37 MG/DL (0.70-1.30); GLOMERULAR FILTRATION RATE > 60.0 (>42); GLUCOSE, FASTING 184 MG/DL (70-100); POTASSIUM SERUM 4.5 MEQ/L (3.5-5.1); SODIUM LEVEL 129 MEQ/L (136-145)
[2022-07-27] MEDS: MEROPENEM INJ 1 GM in IV 1 EA IV SCH ×3 (06:16→22:48)
[2022-07-27] MEDS: INSULIN LISPRO (NovoLOG) PER UNIT SC SCH ×6 (06:17→23:30)
[2022-07-27] MEDS: PANTOPRAZOLE 40MG VIAL IV SCH ×2 (09:19→20:12)
[2022-07-27] MEDS: HEPARIN SOD (PORCINE) 5000UNITS/ML 1ML VIAL/SYRINGE SQ SCH ×2 (09:20→20:12)
[2022-07-27] MEDS ORDERED: NS 1,000 ML IV SCH (11:00)
[2022-07-27] MEDS: MIDAZOLAM 100MG/100ML-0.9%NACL 100 MG in IV 1 EA IV SCH (11:23)
[2022-07-27] MEDS: MIDAZOLAM INJ 2MG/2ML VIAL (J2250 PER 1MG) IV PRN (13:18)
[2022-07-27] MEDS: ACETAMINOPHEN 1000MG 100ML IV BAG IV PRN (14:18)
[2022-07-27] MEDS: LACRILUBE (AKWA TEARS) OPHTH OINT 3.5 GM OU SCH ×2 (17:22→20:12)
[2022-07-27] MEDS ORDERED: FAT EMULSION IV 250 ML IV ONE (18:00)
[2022-07-27] MEDS ORDERED: SODIUM CHLORIDE 23.4% INJ 13.6 MEQ, SODIUM ACETATE INJ 13.6 MEQ, SODIUM PHOSPHATE INJ 1... IV SCH ×8 (18:00)
[2022-07-27] MEDS: CHLORHEXIDINE GLUCONATE 0.12 % 15ML UDC (PERIDEX ORAL RINSE) MT SCH (20:11)
[2022-07-27] MEDS: MICAFUNGIN SODIUM 100 MG in D5W MINI-BAG PLUS 100 ML IV SCH (20:12)
[2022-07-28] VITALS (42 sets, daily range): BP systolic 108–199; BP diastolic 58–97
[2022-07-28] MEDS: OCTREOTIDE ACETATE 100MCG/ML VIAL **IV ADMINISTRATION ONLY IV SCH ×3 (02:27→17:20)
[2022-07-28] MEDS: VANCOMYCIN HCL 1,000 MG, VIAL MATE ADAPTER 1 EACH in D5W 250 ML IV SCH ×3 (02:27→17:22)
[2022-07-28] MEDS: MIDAZOLAM 100MG/100ML-0.9%NACL 100 MG in IV 1 EA IV SCH (03:55)
[2022-07-28 04:43] LABS: ABG HCO3 23.4 MEQ/L (22.0-26.0); ABG O2 SATURATION 98.5 % (95.0-99.0); ABG PARTIAL PRESSURE CO2 33.3 mmHg (35.0-45.0); ABG PARTIAL PRESSURE O2 111.1 mmHg (75.0-100.0); ABG STANDARD HCO3 24.5 MEQ/L (22.0-26.0); ABG TOTAL CO2 24.4 MEQ/L (23.0-31.0); ABG pH (ARTERIAL) 7.465 UNITS (7.350-7.450)
[2022-07-28 04:54] LABS: BASO # 0.2 10^3/uL (0.0-0.2); BASO % 0.4 % (0.0-1.0); EOS # 0.2 10^3/uL (0.0-0.5); EOS % 0.6 % (0.0-3.0); HEMATOCRIT 26.6 % (42.0-52.0); HEMOGLOBIN 8.4 g/dl (13.5-17.5); LYMPH % 2.8 % (24.0-44.0); MEAN CORPUSCULAR HEMOGLOBIN 28.1 pg (27.0-33.0); MEAN CORPUSCULAR HGB CONC 31.6 g/dl (32.0-36.5); MONO % 2.9 % (2.0-8.0); NEUTROPHILS # 31.4 10^3/uL (1.5-8.5); NEUTROPHILS % 89.7 % (36.0-66.0); PLATELET COUNT, AUTOMATED 465 10^3/uL (150-450); RED BLOOD COUNT 2.99 10^6/uL (4.30-6.10)
[2022-07-28 05:17] LABS: BLOOD UREA NITROGEN 14 MG/DL (7-18); CALCIUM LEVEL 8.5 MG/DL (8.8-10.2); CARBON DIOXIDE LEVEL 25 MEQ/L (21-32); CHLORIDE LEVEL 101 MEQ/L (98-107); CREATININE FOR GFR 0.42 MG/DL (0.70-1.30); GLOMERULAR FILTRATION RATE > 60.0 (>42); GLUCOSE, FASTING 211 MG/DL (70-100); POTASSIUM SERUM 3.7 MEQ/L (3.5-5.1); SODIUM LEVEL 131 MEQ/L (136-145)
[2022-07-28] MEDS: fentaNYL CITRATE/NaCl 1,000 MCG in IV 1 EA IV SCH ×2 (05:32→16:24)
[2022-07-28] MEDS: propofoL 1,000 MG in IV 1 EA IV SCH ×3 (05:37→16:15)
[2022-07-28] MEDS: INSULIN LISPRO (NovoLOG) PER UNIT SC SCH ×4 (06:00→17:23)
[2022-07-28] MEDS: MEROPENEM INJ 1 GM in IV 1 EA IV SCH ×3 (06:07→22:16)
[2022-07-28] MEDS: HEPARIN SOD (PORCINE) 5000UNITS/ML 1ML VIAL/SYRINGE SQ SCH ×2 (08:11→20:34)
[2022-07-28] MEDS: PANTOPRAZOLE 40MG VIAL IV SCH ×2 (08:11→20:34)
[2022-07-28] MEDS: CHLORHEXIDINE GLUCONATE 0.12 % 15ML UDC (PERIDEX ORAL RINSE) MT SCH ×2 (08:12→20:34)
[2022-07-28] MEDS: LACRILUBE (AKWA TEARS) OPHTH OINT 3.5 GM OU SCH ×3 (08:12→20:35)
[2022-07-28 09:18] LABS: MAGNESIUM LEVEL 1.1 MG/DL (1.8-2.4)
[2022-07-28] MEDS: ACETAMINOPHEN 1000MG 100ML IV BAG IV PRN ×2 (09:47→18:48)
[2022-07-28] MEDS ORDERED: MAG SULF 1GM/100ML (MAG RUN) 1 GM in IV 1 EA IV ONE (12:30)
[2022-07-28] MEDS ORDERED: dexmedeTOMidine 200 MCG in IV 1 EA IV SCH (15:30)
[2022-07-28] MEDS: MIDAZOLAM INJ 2MG/2ML VIAL (J2250 PER 1MG) IV PRN ×2 (16:03→18:04)
[2022-07-28] MEDS ORDERED: [UNRECOGNIZED DRUG - OTHER] IV SCH ×7 (18:00)
[2022-07-28] MEDS: SODIUM CHLORIDE 0.9% INJ 10 ML SYR IV SCH (18:00)
[2022-07-28] MEDS ORDERED: SODIUM CHLORIDE IV SCH ×7 (18:00)
[2022-07-28] MEDS ORDERED: SODIUM ACETATE IV SCH ×7 (18:00)
[2022-07-28] MEDS ORDERED: FAT EMULSION IV 250 ML IV ONE (18:00)
[2022-07-28] MEDS ORDERED: SODIUM CHLORIDE 0.9% INJ 10 ML SYR IV PRN (18:25)
[2022-07-28] MEDS ORDERED: FUROSEMIDE 20MG/2ML VIAL (J1940) IV ONE (18:25)
[2022-07-28] MEDS: NOREPINEPHRINE 4MG IN D5 250ML 4 MG in IV 1 EA IV SCH ×2 (18:35)
[2022-07-28] MEDS: MICAFUNGIN SODIUM 100 MG in D5W MINI-BAG PLUS 100 ML IV SCH (20:35)
[2022-07-29] VITALS (32 sets, daily range): BP systolic 121–205; BP diastolic 67–114
[2022-07-29] MEDS: propofoL 1,000 MG in IV 1 EA IV SCH ×5 (00:01→19:10)
[2022-07-29] MEDS: MIDAZOLAM INJ 2MG/2ML VIAL (J2250 PER 1MG) IV PRN ×5 (00:17→23:55)
[2022-07-29] MEDS: INSULIN LISPRO (NovoLOG) PER UNIT SC SCH ×5 (00:35→23:15)
[2022-07-29] MEDS: VANCOMYCIN HCL 1,000 MG, VIAL MATE ADAPTER 1 EACH in D5W 250 ML IV SCH ×3 (02:12→17:16)
[2022-07-29] MEDS: OCTREOTIDE ACETATE 100MCG/ML VIAL **IV ADMINISTRATION ONLY IV SCH ×3 (02:27→17:16)
[2022-07-29] MEDS: ACETAMINOPHEN 1000MG 100ML IV BAG IV PRN ×2 (03:42→14:47)
[2022-07-29] MEDS: fentaNYL CITRATE/NaCl 1,000 MCG in IV 1 EA IV SCH ×2 (04:50→16:41)
[2022-07-29 05:18] LABS: HEMATOCRIT 27.2 % (42.0-52.0); HEMOGLOBIN 8.7 g/dl (13.5-17.5); MEAN CORPUSCULAR HEMOGLOBIN 28.2 pg (27.0-33.0); MEAN CORPUSCULAR VOLUME 88.3 fl (80.0-96.0); PLATELET COUNT, AUTOMATED 413 10^3/uL (150-450); RED BLOOD COUNT 3.08 10^6/uL (4.30-6.10); WHITE BLOOD COUNT 24.5 10^3/uL (4.0-10.0)
[2022-07-29 05:54] LABS: ABG BASE EXCESS 1.4 (-2.0-2.0); ABG HCO3 24.2 MEQ/L (22.0-26.0); ABG O2 SATURATION 97.8 % (95.0-99.0); ABG PARTIAL PRESSURE CO2 31.4 mmHg (35.0-45.0); ABG PARTIAL PRESSURE O2 100.6 mmHg (75.0-100.0); ABG STANDARD HCO3 25.7 MEQ/L (22.0-26.0); ABG TOTAL CO2 25.1 MEQ/L (23.0-31.0); ABG pH (ARTERIAL) 7.504 UNITS (7.350-7.450)
[2022-07-29 05:55] LABS: ATYPICAL LYMPH 3 % (0-5); LYMPHOCYTES 6 % (16-44); METAMYELOCYTES 1 % (0-0); MONOCYTES 5 % (0-5); MYELOCYTES 1 % (0-0); NEUTROPHILS 83 % (28-66)
[2022-07-29 05:56] LABS: ANISOCYTOSIS 2+; PLATELET ESTIMATE NORMAL (NORMAL); POIKILOCYTOSIS 1+; POLYCHROMASIA 1+
[2022-07-29 05:58] LABS: BLOOD UREA NITROGEN 12 MG/DL (7-18); CARBON DIOXIDE LEVEL 28 MEQ/L (21-32); CHLORIDE LEVEL 100 MEQ/L (98-107); CREATININE FOR GFR 0.32 MG/DL (0.70-1.30); GLOMERULAR FILTRATION RATE > 60.0 (>42); GLUCOSE, FASTING 163 MG/DL (70-100); POTASSIUM SERUM 3.5 MEQ/L (3.5-5.1); SODIUM LEVEL 133 MEQ/L (136-145)
[2022-07-29] MEDS: SODIUM CHLORIDE 0.9% INJ 10 ML SYR IV SCH ×2 (06:00→17:16)
[2022-07-29] MEDS: MEROPENEM INJ 1 GM in IV 1 EA IV SCH ×3 (06:20→23:09)
[2022-07-29] MEDS ORDERED: MAG SULF 1GM/100ML (MAG RUN) 1 GM in IV 1 EA IV SCH (07:00)
[2022-07-29] MEDS: CHLORHEXIDINE GLUCONATE 0.12 % 15ML UDC (PERIDEX ORAL RINSE) MT SCH ×2 (08:47→20:35)
[2022-07-29] MEDS: LACRILUBE (AKWA TEARS) OPHTH OINT 3.5 GM OU SCH ×3 (08:48→20:35)
[2022-07-29] MEDS: PANTOPRAZOLE 40MG VIAL IV SCH ×2 (08:48→20:35)
[2022-07-29] MEDS: HEPARIN SOD (PORCINE) 5000UNITS/ML 1ML VIAL/SYRINGE SQ SCH ×2 (08:48→20:35)
[2022-07-29] MEDS: MAG SULF 1GM/100ML (MAG RUN) 1 GM in IV 1 EA IV SCH ×2 (08:56→10:00)
[2022-07-29] MEDS: hydrALAZINE 20MG/ML 1ML VIAL (J0360 PER 20MG) IV PRN ×2 (10:11→23:09)
[2022-07-29] MEDS ORDERED: hydrALAZINE 20MG/ML 1ML VIAL (J0360 PER 20MG) IV STA ×2 (11:04→12:04)
[2022-07-29] MEDS: KCL 10MEQ/100ML SWI (KRUN) 10 MEQ in IV 1 EA IV SCH ×2 (11:24→12:31)
[2022-07-29] MEDS ORDERED: MIDAZOLAM INJ 2MG/2ML VIAL (J2250 PER 1MG) IV STA (12:46)
[2022-07-29] MEDS: MIDAZOLAM 100MG/100ML-0.9%NACL 100 MG in IV 1 EA IV SCH (15:00)
[2022-07-29] MEDS ORDERED: FAT EMULSION IV 250 ML IV ONE (18:00)
[2022-07-29] MEDS ORDERED: AMINO AC/ELECTROLYTE/DEX/CALC 2,000 ML IV SCH (18:00)
[2022-07-29] MEDS: MICAFUNGIN SODIUM 100 MG in D5W MINI-BAG PLUS 100 ML IV SCH (20:35)
[2022-07-30] VITALS (31 sets, daily range): BP systolic 80–190; BP diastolic 52–127
[2022-07-30] MEDS: propofoL 1,000 MG in IV 1 EA IV SCH ×2 (01:07→04:23)
[2022-07-30] MEDS: VANCOMYCIN HCL 1,000 MG, VIAL MATE ADAPTER 1 EACH in D5W 250 ML IV SCH ×3 (02:33→17:24)
[2022-07-30] MEDS: OCTREOTIDE ACETATE 100MCG/ML VIAL **IV ADMINISTRATION ONLY IV SCH ×3 (02:34→17:16)
[2022-07-30] MEDS: fentaNYL CITRATE/NaCl 1,000 MCG in IV 1 EA IV SCH (04:27)
[2022-07-30 05:20] LABS: BLOOD UREA NITROGEN 10 MG/DL (7-18); CALCIUM LEVEL 7.7 MG/DL (8.8-10.2); CARBON DIOXIDE LEVEL 27 MEQ/L (21-32); CHLORIDE LEVEL 98 MEQ/L (98-107); GLOMERULAR FILTRATION RATE > 60.0 (>42); GLUCOSE, FASTING 202 MG/DL (70-100); MAGNESIUM LEVEL 0.9 MG/DL (1.8-2.4); POTASSIUM SERUM 3.4 MEQ/L (3.5-5.1); SODIUM LEVEL 133 MEQ/L (136-145)
[2022-07-30 05:21] LABS: HEMATOCRIT 25.6 % (42.0-52.0); HEMOGLOBIN 8.4 g/dl (13.5-17.5); MEAN CORPUSCULAR HEMOGLOBIN 28.2 pg (27.0-33.0); MEAN CORPUSCULAR HGB CONC 32.8 g/dl (32.0-36.5); MEAN CORPUSCULAR VOLUME 85.9 fl (80.0-96.0); PLATELET COUNT, AUTOMATED 374 10^3/uL (150-450); RED BLOOD COUNT 2.98 10^6/uL (4.30-6.10); WHITE BLOOD COUNT 20.4 10^3/uL (4.0-10.0)
[2022-07-30 05:42] LABS: ANISOCYTOSIS 2+; ATYPICAL LYMPH 1 % (0-5); EOSINOPHILS 2 % (0-3); LYMPHOCYTES 10 % (16-44); METAMYELOCYTES 2 % (0-0); MONOCYTES 6 % (0-5); MYELOCYTES 4 % (0-0); NEUTROPHILS 75 % (28-66); PLATELET ESTIMATE NORMAL (NORMAL); POIKILOCYTOSIS 1+; POLYCHROMASIA 1+
[2022-07-30] MEDS: MAG SULF 1GM/100ML (MAG RUN) 1 GM in IV 1 EA IV SCH ×2 (05:42→06:45)
[2022-07-30] MEDS: SODIUM CHLORIDE 0.9% INJ 10 ML SYR IV SCH ×2 (05:42→17:56)
[2022-07-30] MEDS: INSULIN LISPRO (NovoLOG) PER UNIT SC SCH ×3 (05:45→17:44)
[2022-07-30 05:46] LABS: ABG BASE EXCESS 5.4 (-2.0-2.0); ABG HCO3 28.3 MEQ/L (22.0-26.0); ABG O2 SATURATION 96.4 % (95.0-99.0); ABG PARTIAL PRESSURE CO2 34.7 mmHg (35.0-45.0); ABG PARTIAL PRESSURE O2 80.3 mmHg (75.0-100.0); ABG STANDARD HCO3 29.3 MEQ/L (22.0-26.0); ABG TOTAL CO2 29.3 MEQ/L (23.0-31.0); ABG pH (ARTERIAL) 7.529 UNITS (7.350-7.450)
[2022-07-30] MEDS: MEROPENEM INJ 1 GM in IV 1 EA IV SCH ×3 (06:34→22:11)
[2022-07-30] MEDS: KCL 20MEQ IN 100ML SWI (KRUN) 20 MEQ in IV 1 EA IV SCH ×4 (07:47→08:44)
[2022-07-30] MEDS: CHLORHEXIDINE GLUCONATE 0.12 % 15ML UDC (PERIDEX ORAL RINSE) MT SCH ×2 (08:43→20:51)
[2022-07-30] MEDS: PANTOPRAZOLE 40MG VIAL IV SCH ×2 (08:43→20:50)
[2022-07-30] MEDS: HEPARIN SOD (PORCINE) 5000UNITS/ML 1ML VIAL/SYRINGE SQ SCH ×2 (08:43→20:50)
[2022-07-30] MEDS: LACRILUBE (AKWA TEARS) OPHTH OINT 3.5 GM OU SCH ×3 (08:44→20:51)
[2022-07-30] MEDS: dexmedeTOMidine 200 MCG in IV 1 EA IV SCH ×4 (09:00→22:25)
[2022-07-30] MEDS: ACETAMINOPHEN 1000MG 100ML IV BAG IV PRN (10:20)
[2022-07-30] MEDS: hydrALAZINE 20MG/ML 1ML VIAL (J0360 PER 20MG) IV PRN ×2 (10:20→17:17)
[2022-07-30] MEDS ORDERED: NS 250 ML IV ONE (13:00)
[2022-07-30] MEDS: MIDAZOLAM 100MG/100ML-0.9%NACL 100 MG in IV 1 EA IV SCH (17:57)
[2022-07-30] MEDS ORDERED: FAT EMULSION IV 250 ML IV ONE (18:00)
[2022-07-30] MEDS ORDERED: MULTIVITAMIN -ADULT INJECTION 10 ML, ZINC/COPPER/MANGANESE/SELENIUM 1 ML in AMINO AC/EL... IV SCH (18:00)
[2022-07-30] MEDS ORDERED: FUROSEMIDE 20MG/2ML VIAL (J1940) IV ONE (18:10)
[2022-07-30] MEDS: MICAFUNGIN SODIUM 100 MG in D5W MINI-BAG PLUS 100 ML IV SCH (20:51)
[2022-07-30] MEDS: fentaNYL 100 MCG/2 ML INJECTION IV PRN (22:36)
[2022-07-31] VITALS (24 sets, daily range): BP systolic 140–180; BP diastolic 70–86
[2022-07-31] MEDS: INSULIN LISPRO (NovoLOG) PER UNIT SC SCH ×5 (00:23→23:58)
[2022-07-31] MEDS: OCTREOTIDE ACETATE 100MCG/ML VIAL **IV ADMINISTRATION ONLY IV SCH ×3 (02:08→18:23)
[2022-07-31] MEDS: VANCOMYCIN HCL 1,000 MG, VIAL MATE ADAPTER 1 EACH in D5W 250 ML IV SCH ×3 (02:08→18:23)
[2022-07-31] MEDS: dexmedeTOMidine 200 MCG in IV 1 EA IV SCH (04:07)
[2022-07-31 04:31] LABS: HEMOGLOBIN 8.3 g/dl (13.5-17.5); MEAN CORPUSCULAR HEMOGLOBIN 27.9 pg (27.0-33.0); MEAN CORPUSCULAR HGB CONC 33.2 g/dl (32.0-36.5); MEAN CORPUSCULAR VOLUME 84.2 fl (80.0-96.0); PLATELET COUNT, AUTOMATED 352 10^3/uL (150-450); RED BLOOD COUNT 2.97 10^6/uL (4.30-6.10); WHITE BLOOD COUNT 19.5 10^3/uL (4.0-10.0)
[2022-07-31 04:51] LABS: LYMPHOCYTES 10 % (16-44); METAMYELOCYTES 4 % (0-0); MONOCYTES 2 % (0-5); MYELOCYTES 2 % (0-0); NEUTROPHILS 80 % (28-66); PLATELET ESTIMATE NORMAL (NORMAL)
[2022-07-31 04:52] LABS: ANISOCYTOSIS 1+; POLYCHROMASIA 1+
[2022-07-31 05:03] LABS: BLOOD UREA NITROGEN 13 MG/DL (7-18); CALCIUM LEVEL 7.5 MG/DL (8.8-10.2); CARBON DIOXIDE LEVEL 32 MEQ/L (21-32); CHLORIDE LEVEL 96 MEQ/L (98-107); CREATININE FOR GFR 0.42 MG/DL (0.70-1.30); GLOMERULAR FILTRATION RATE > 60.0 (>42); GLUCOSE, FASTING 157 MG/DL (70-100); POTASSIUM SERUM 3.1 MEQ/L (3.5-5.1); SODIUM LEVEL 135 MEQ/L (136-145)
[2022-07-31] MEDS: SODIUM CHLORIDE 0.9% INJ 10 ML SYR IV SCH ×2 (05:52→18:00)
[2022-07-31 05:53] LABS: ABG O2 SATURATION 96.9 % (95.0-99.0)
[2022-07-31] MEDS: MEROPENEM INJ 1 GM in IV 1 EA IV SCH ×2 (05:53→15:35)
[2022-07-31 05:57] LABS: ABG BASE EXCESS 7.1 (-2.0-2.0); ABG HCO3 27.4 MEQ/L (22.0-26.0); ABG PARTIAL PRESSURE CO2 27.3 mmHg (35.0-45.0); ABG TOTAL CO2 28.3 MEQ/L (23.0-31.0)
[2022-07-31] MEDS ORDERED: KCL 20MEQ IN 100ML SWI (KRUN) 20 MEQ in IV 1 EA IV SCH ×2 (06:00)
[2022-07-31 06:02] LABS: MAGNESIUM LEVEL 0.8 MG/DL (1.8-2.4)
[2022-07-31] MEDS: MAG SULF 1GM/100ML (MAG RUN) 1 GM in IV 1 EA IV SCH ×6 (06:44→19:35)
[2022-07-31] MEDS ORDERED: NS 1,000 ML IV SCH (08:00)
[2022-07-31] MEDS ORDERED: fentaNYL 100 MCG/2 ML INJECTION IV PRN (08:00)
[2022-07-31] MEDS: PANTOPRAZOLE 40MG VIAL IV SCH ×2 (08:09→20:08)
[2022-07-31] MEDS: HEPARIN SOD (PORCINE) 5000UNITS/ML 1ML VIAL/SYRINGE SQ SCH (08:09)
[2022-07-31] MEDS: LACRILUBE (AKWA TEARS) OPHTH OINT 3.5 GM OU SCH ×2 (08:10→15:40)
[2022-07-31] MEDS: CHLORHEXIDINE GLUCONATE 0.12 % 15ML UDC (PERIDEX ORAL RINSE) MT SCH ×2 (08:10→21:00)
[2022-07-31] MEDS ORDERED: fentaNYL 100 MCG/2 ML INJECTION IV ONE (10:05)
[2022-07-31] MEDS ORDERED: fentaNYL 100 MCG/2 ML INJECTION As Ordered ONE (10:08)
[2022-07-31] MEDS: KCL 20MEQ IN 100ML SWI (KRUN) 20 MEQ in IV 1 EA IV SCH ×8 (11:56→21:49)
[2022-07-31] MEDS: fentaNYL 100 MCG/2 ML INJECTION IV PRN ×3 (13:04→23:58)
[2022-07-31 16:10] LABS: ABG BASE EXCESS 6.3 (-2.0-2.0); ABG HCO3 27.9 MEQ/L (22.0-26.0); ABG O2 SATURATION 95.8 % (95.0-99.0); ABG PARTIAL PRESSURE CO2 29.1 mmHg (35.0-45.0); ABG PARTIAL PRESSURE O2 75.5 mmHg (75.0-100.0); ABG STANDARD HCO3 30.2 MEQ/L (22.0-26.0); ABG TOTAL CO2 28.8 MEQ/L (23.0-31.0); ABG pH (ARTERIAL) 7.599 UNITS (7.350-7.450)
[2022-07-31 16:15] LABS: MAGNESIUM LEVEL 1.4 MG/DL (1.8-2.4); POTASSIUM SERUM 3.1 MEQ/L (3.5-5.1)
[2022-07-31] MEDS ORDERED: HEPARIN SOD (PORCINE) 5000UNITS/ML 1ML VIAL/SYRINGE IV ONE (18:05)
[2022-07-31] MEDS ORDERED: HEPARIN SOD (PORCINE) 5000UNITS/ML 1ML VIAL/SYRINGE IV PRN (18:05)
[2022-07-31] MEDS: NS 1,000 ML IV SCH (18:20)
[2022-07-31] MEDS: HEPARIN DRIP 25,000 UNITS in IV 1 EA IV SCH (19:57)
[2022-08-01] VITALS (14 sets, daily range): BP systolic 151–185; BP diastolic 83–99
[2022-08-01] MEDS: VANCOMYCIN HCL 1,000 MG, VIAL MATE ADAPTER 1 EACH in D5W 250 ML IV SCH (01:58)
[2022-08-01] MEDS: OCTREOTIDE ACETATE 100MCG/ML VIAL **IV ADMINISTRATION ONLY IV SCH ×3 (01:58→17:42)
[2022-08-01] MEDS: fentaNYL 100 MCG/2 ML INJECTION IV PRN ×4 (02:11→23:23)
[2022-08-01] MEDS: SODIUM CHLORIDE 0.9% INJ 10 ML SYR IV SCH ×2 (05:17→17:50)
[2022-08-01 05:33] LABS: VENOUS BASE EXCESS 5.3 (-2.0-2.0); VENOUS HCO3 28.3 MEQ/L (23.0-27.0); VENOUS O2 SATURATION 93.2 % (60.0-80.0); VENOUS PARTIAL PRESSURE CO2 35.4 mmHg (38.0-50.0); VENOUS PARTIAL PRESSURE O2 68.5 mmHg (30.0-50.0); VENOUS PH 7.521 UNITS (7.330-7.430); VENOUS STANDARD HCO3 29.2 MEQ/L; VENOUS TOTAL CO2 29.4 MEQ/L (24.0-28.0)
[2022-08-01 05:42] LABS: HEMATOCRIT 26.1 % (42.0-52.0); HEMOGLOBIN 8.3 g/dl (13.5-17.5); MEAN CORPUSCULAR HEMOGLOBIN 27.4 pg (27.0-33.0); MEAN CORPUSCULAR HGB CONC 31.8 g/dl (32.0-36.5); MEAN CORPUSCULAR VOLUME 86.1 fl (80.0-96.0); PLATELET COUNT, AUTOMATED 385 10^3/uL (150-450); RED BLOOD COUNT 3.03 10^6/uL (4.30-6.10); WHITE BLOOD COUNT 14.2 10^3/uL (4.0-10.0)
[2022-08-01] MEDS ORDERED: MORPHINE 2 MG/ML 1ML VIAL IV ONE (05:45)
[2022-08-01 05:54] LABS: LYMPHOCYTES 9 % (16-44); METAMYELOCYTES 3 % (0-0); MONOCYTES 5 % (0-5); MYELOCYTES 3 % (0-0); NEUTROPHILS 77 % (28-66); PLATELET ESTIMATE NORMAL (NORMAL)
[2022-08-01 05:55] LABS: ANISOCYTOSIS 1+
[2022-08-01] MEDS: INSULIN LISPRO (NovoLOG) PER UNIT SC SCH ×4 (06:00→23:00)
[2022-08-01 06:04] LABS: ABG BASE EXCESS 5.9 (-2.0-2.0); ABG HCO3 27.6 MEQ/L (22.0-26.0); ABG O2 SATURATION 91.4 % (95.0-99.0); ABG PARTIAL PRESSURE CO2 29.6 mmHg (35.0-45.0); ABG PARTIAL PRESSURE O2 58.8 mmHg (75.0-100.0); ABG STANDARD HCO3 29.7 MEQ/L (22.0-26.0); ABG TOTAL CO2 28.5 MEQ/L (23.0-31.0); ABG pH (ARTERIAL) 7.587 UNITS (7.350-7.450)
[2022-08-01] MEDS: MAG SULF 1GM/100ML (MAG RUN) 1 GM in IV 1 EA IV SCH ×4 (06:32→10:05)
[2022-08-01 06:51] LABS: BLOOD UREA NITROGEN 19 MG/DL (7-18); CALCIUM LEVEL 7.8 MG/DL (8.8-10.2); CARBON DIOXIDE LEVEL 28 MEQ/L (21-32); CHLORIDE LEVEL 100 MEQ/L (98-107); GLOMERULAR FILTRATION RATE > 60.0 (>42); GLUCOSE, FASTING 145 MG/DL (70-100); POTASSIUM SERUM 3.4 MEQ/L (3.5-5.1); SODIUM LEVEL 136 MEQ/L (136-145)
[2022-08-01] MEDS ORDERED: POTASSIUM CHLORIDE 10MEQ SR TABLET PO ONE (06:55)
[2022-08-01] MEDS: PANTOPRAZOLE 40MG VIAL IV SCH ×2 (07:52→20:38)
[2022-08-01] MEDS: VANCOMYCIN HCL 750 MG, VIAL MATE ADAPTER 1 EACH in D5W 250 ML IV SCH ×3 (11:21→22:52)
[2022-08-01] MEDS: KCL 20MEQ IN 100ML SWI (KRUN) 20 MEQ in IV 1 EA IV SCH ×4 (11:51→12:43)
[2022-08-01] MEDS: hydrALAZINE 20MG/ML 1ML VIAL (J0360 PER 20MG) IV PRN ×2 (12:00→20:38)
[2022-08-01] MEDS: NS 1,000 ML IV SCH (12:43)
[2022-08-01] MEDS ORDERED: LIDOCAINE 1% MDV 20ML VIAL As Ordered ONE (16:25)
[2022-08-01] MEDS: HEPARIN DRIP 25,000 UNITS in IV 1 EA IV SCH (17:43)
[2022-08-01] MEDS ORDERED: NEOSPORIN OINT 0.9 GM PKT TOP ONE (17:50)
[2022-08-01] MEDS ORDERED: HYDROmorphone 2 MG TAB PO PRN (23:15)
[2022-08-01] MEDS ORDERED: PILL CUTTER 1 EACH XX PRN (23:20)
[2022-08-02] VITALS (15 sets, daily range): BP systolic 145–180; BP diastolic 75–94
[2022-08-02] MEDS: VANCOMYCIN HCL 750 MG, VIAL MATE ADAPTER 1 EACH in D5W 250 ML IV SCH ×4 (00:05→22:49)
[2022-08-02] MEDS: OCTREOTIDE ACETATE 100MCG/ML VIAL **IV ADMINISTRATION ONLY IV SCH ×3 (01:02→18:16)
[2022-08-02] MEDS: SODIUM CHLORIDE 0.9% INJ 10 ML SYR IV SCH ×2 (04:40→18:17)
[2022-08-02] MEDS: MORPHINE 2 MG/ML 1ML VIAL IV PRN ×2 (04:49→22:58)
[2022-08-02] MEDS: fentaNYL 100 MCG/2 ML INJECTION IV PRN ×3 (05:16→21:12)
[2022-08-02] MEDS: INSULIN LISPRO (NovoLOG) PER UNIT SC SCH ×3 (05:54→18:00)
[2022-08-02 06:45] LABS: VENOUS BASE EXCESS 4.6 (-2.0-2.0); VENOUS HCO3 27.5 MEQ/L (23.0-27.0); VENOUS O2 SATURATION 93.5 % (60.0-80.0); VENOUS PARTIAL PRESSURE O2 69.7 mmHg (30.0-50.0); VENOUS PH 7.525 UNITS (7.330-7.430); VENOUS STANDARD HCO3 28.5 MEQ/L; VENOUS TOTAL CO2 28.5 MEQ/L (24.0-28.0)
[2022-08-02 06:58] LABS: HEMATOCRIT 24.2 % (42.0-52.0); HEMOGLOBIN 7.9 g/dl (13.5-17.5); MEAN CORPUSCULAR HEMOGLOBIN 28.3 pg (27.0-33.0); MEAN CORPUSCULAR HGB CONC 32.6 g/dl (32.0-36.5); MEAN CORPUSCULAR VOLUME 86.7 fl (80.0-96.0); PLATELET COUNT, AUTOMATED 383 10^3/uL (150-450); RED BLOOD COUNT 2.79 10^6/uL (4.30-6.10); WHITE BLOOD COUNT 13.8 10^3/uL (4.0-10.0)
[2022-08-02 07:04] LABS: INR 1.08; PROTHROMBIN TIME 14.2 SECONDS (12.5-14.5)
[2022-08-02 07:06] LABS: PARTIAL THROMBOPLASTIN TIME 48.5 SECONDS (24.8-34.2)
[2022-08-02 07:34] LABS: BLOOD UREA NITROGEN 14 MG/DL (7-18); CALCIUM LEVEL 7.6 MG/DL (8.8-10.2); CARBON DIOXIDE LEVEL 27 MEQ/L (21-32); CHLORIDE LEVEL 100 MEQ/L (98-107); CREATININE FOR GFR 0.37 MG/DL (0.70-1.30); GLOMERULAR FILTRATION RATE > 60.0 (>42); GLUCOSE, FASTING 129 MG/DL (70-100); SODIUM LEVEL 136 MEQ/L (136-145)
[2022-08-02 08:20] LABS: LYMPHOCYTES 5 % (16-44); METAMYELOCYTES 5 % (0-0); MONOCYTES 9 % (0-5); NEUTROPHILS 78 % (28-66)
[2022-08-02 08:21] LABS: ANISOCYTOSIS 2+; HYPOCHROMASIA 2+
[2022-08-02 08:22] LABS: PLATELET ESTIMATE NORMAL (NORMAL)
[2022-08-02] MEDS: hydrALAZINE 20MG/ML 1ML VIAL (J0360 PER 20MG) IV PRN ×2 (08:54→21:18)
[2022-08-02] MEDS: PANTOPRAZOLE 40MG VIAL IV SCH ×2 (08:55→21:12)
[2022-08-02] MEDS ORDERED: KCL 20MEQ IN 100ML SWI (KRUN) 20 MEQ in IV 1 EA IV ONE ×2 (09:00)
[2022-08-02] MEDS ORDERED: MAG SULF 1GM/100ML (MAG RUN) 1 GM in IV 1 EA IV SCH ×2 (09:00→10:35)
[2022-08-02] MEDS: NS 1,000 ML IV SCH (12:58)
[2022-08-03] VITALS (7 sets, daily range): BP systolic 143–184; BP diastolic 76–99
[2022-08-03] MEDS: fentaNYL 100 MCG/2 ML INJECTION IV PRN ×2 (00:03→04:01)
[2022-08-03] MEDS: VANCOMYCIN HCL 750 MG, VIAL MATE ADAPTER 1 EACH in D5W 250 ML IV SCH ×4 (00:04→22:24)
[2022-08-03] MEDS: OCTREOTIDE ACETATE 100MCG/ML VIAL **IV ADMINISTRATION ONLY IV SCH ×3 (01:34→17:39)
[2022-08-03] MEDS: NS 1,000 ML IV SCH (04:00)
[2022-08-03] MEDS: MORPHINE 2 MG/ML 1ML VIAL IV PRN ×2 (05:38→17:39)
[2022-08-03] MEDS: SODIUM CHLORIDE 0.9% INJ 10 ML SYR IV SCH ×2 (05:39→17:39)
[2022-08-03] MEDS: INSULIN LISPRO (NovoLOG) PER UNIT SC SCH ×4 (05:54→17:37)
[2022-08-03 06:01] LABS: HEMATOCRIT 30.1 % (42.0-52.0); MEAN CORPUSCULAR HEMOGLOBIN 28.3 pg (27.0-33.0); MEAN CORPUSCULAR HGB CONC 33.2 g/dl (32.0-36.5); MEAN CORPUSCULAR VOLUME 85.3 fl (80.0-96.0); PLATELET COUNT, AUTOMATED 349 10^3/uL (150-450); RED BLOOD COUNT 3.53 10^6/uL (4.30-6.10); WHITE BLOOD COUNT 17.6 10^3/uL (4.0-10.0)
[2022-08-03 06:32] LABS: BLOOD UREA NITROGEN 13 MG/DL (7-18); CALCIUM LEVEL 7.5 MG/DL (8.8-10.2); CARBON DIOXIDE LEVEL 28 MEQ/L (21-32); CHLORIDE LEVEL 100 MEQ/L (98-107); CREATININE FOR GFR 0.38 MG/DL (0.70-1.30); GLOMERULAR FILTRATION RATE > 60.0 (>42); GLUCOSE, FASTING 153 MG/DL (70-100); POTASSIUM SERUM 3.2 MEQ/L (3.5-5.1); SODIUM LEVEL 134 MEQ/L (136-145)
[2022-08-03 06:57] LABS: ANISOCYTOSIS 2+; BASOPHILS 1 % (0-1); LYMPHOCYTES 10 % (16-44); METAMYELOCYTES 3 % (0-0); MONOCYTES 5 % (0-5); NEUTROPHILS 79 % (28-66); PLATELET ESTIMATE NORMAL (NORMAL)
[2022-08-03 06:58] LABS: OVALOCYTES 1+
[2022-08-03 09:02] LABS: MAGNESIUM LEVEL 1.1 MG/DL (1.8-2.4)
[2022-08-03] MEDS: MAG SULF 1GM/100ML (MAG RUN) 1 GM in IV 1 EA IV SCH ×3 (09:59→11:58)
[2022-08-03] MEDS: PANTOPRAZOLE 40MG VIAL IV SCH ×2 (09:59→20:09)
[2022-08-03] MEDS: KCL 20MEQ IN 100ML SWI (KRUN) 20 MEQ in IV 1 EA IV SCH ×6 (09:59→11:58)
[2022-08-03] MEDS: ACETAMINOPHEN 1000MG 100ML IV BAG IV PRN (18:00)
[2022-08-03] MEDS ORDERED: MAG SULF 1GM/100ML (MAG RUN) 1 GM in IV 1 EA IV ONE (20:00)
[2022-08-03] MEDS ORDERED: ALPRAZolam 0.25 MG TAB GT ONE (21:00)
[2022-08-03] MEDS: hydrALAZINE 20MG/ML 1ML VIAL (J0360 PER 20MG) IV PRN (22:23)
[2022-08-04] VITALS (10 sets, daily range): BP systolic 140–200; BP diastolic 50–110
[2022-08-04] MEDS: INSULIN LISPRO (NovoLOG) PER UNIT SC SCH ×5 (00:12→23:45)
[2022-08-04] MEDS: fentaNYL 100 MCG/2 ML INJECTION IV PRN ×3 (00:14→16:24)
[2022-08-04] MEDS: NS 1,000 ML IV SCH (02:22)
[2022-08-04] MEDS: OCTREOTIDE ACETATE 100MCG/ML VIAL **IV ADMINISTRATION ONLY IV SCH ×3 (02:22→18:14)
[2022-08-04] MEDS ORDERED: LORazepam 2 MG/ML VIAL IV STA (03:06)
[2022-08-04] MEDS ORDERED: LORazepam 2 MG/ML VIAL IM STA (03:16)
[2022-08-04] MEDS: SODIUM CHLORIDE 0.9% INJ 10 ML SYR IV SCH ×2 (05:56→17:50)
[2022-08-04 06:26] LABS: BASO # 0.1 10^3/uL (0.0-0.2); BASO % 0.4 % (0.0-1.0); EOS # 0.3 10^3/uL (0.0-0.5); EOS % 1.3 % (0.0-3.0); HEMOGLOBIN 10.5 g/dl (13.5-17.5); LYMPH # 1.4 10^3/uL (1.5-5.0); LYMPH % 7.1 % (24.0-44.0); MEAN CORPUSCULAR HEMOGLOBIN 28.1 pg (27.0-33.0); MEAN CORPUSCULAR HGB CONC 32.8 g/dl (32.0-36.5); MEAN CORPUSCULAR VOLUME 85.6 fl (80.0-96.0); MONO % 7.8 % (2.0-8.0); NEUTROPHILS # 15.9 10^3/uL (1.5-8.5); NEUTROPHILS % 80.5 % (36.0-66.0); PLATELET COUNT, AUTOMATED 364 10^3/uL (150-450); RED BLOOD COUNT 3.74 10^6/uL (4.30-6.10); WHITE BLOOD COUNT 19.8 10^3/uL (4.0-10.0)
[2022-08-04 06:51] LABS: BLOOD UREA NITROGEN 9 MG/DL (7-18); CALCIUM LEVEL 7.4 MG/DL (8.8-10.2); CARBON DIOXIDE LEVEL 27 MEQ/L (21-32); CHLORIDE LEVEL 98 MEQ/L (98-107); CREATININE FOR GFR 0.38 MG/DL (0.70-1.30); GLOMERULAR FILTRATION RATE > 60.0 (>42); GLUCOSE, FASTING 118 MG/DL (70-100); POTASSIUM SERUM 3.2 MEQ/L (3.5-5.1); SODIUM LEVEL 134 MEQ/L (136-145)
[2022-08-04 06:57] LABS: MONO # 1.6 10^3/uL (0.0-0.8)
[2022-08-04] MEDS ORDERED: ISOVUE-370 76% 100ML VIAL As Ordered ONE (08:21)
[2022-08-04] MEDS: MORPHINE 2 MG/ML 1ML VIAL IV PRN ×2 (08:28→14:16)
[2022-08-04] MEDS: PANTOPRAZOLE 40MG VIAL IV SCH ×2 (08:28→20:40)
[2022-08-04] MEDS ORDERED: KCL 20MEQ IN 100ML SWI (KRUN) 20 MEQ in IV 1 EA IV SCH ×2 (09:00)
[2022-08-04] MEDS: MAG SULF 1GM/100ML (MAG RUN) 1 GM in IV 1 EA IV SCH ×3 (09:14→11:59)
[2022-08-04] MEDS ORDERED: DRONABINOL 2.5MG CAP (MARINOL) PO SCH (12:00)
[2022-08-04] MEDS: KCL 10MEQ/100ML SWI (KRUN) 10 MEQ in IV 1 EA IV SCH ×4 (13:17→18:14)
[2022-08-04 13:21] LABS: PHOSPHORUS LEVEL 3.3 MG/DL (2.5-4.9)
[2022-08-04] MEDS: hydrALAZINE 20MG/ML 1ML VIAL (J0360 PER 20MG) IV PRN ×3 (14:16→20:43)
[2022-08-04] MEDS: HYDROMORPHONE HCL 0.5 MG/ 0.5 ML SYRINGE (J1170 PER 1) IV PRN ×2 (18:15→21:32)
[2022-08-04] MEDS ORDERED: oxyCODONE 5MG TAB GT PRN (18:40)
[2022-08-04 19:07] LABS: MAGNESIUM LEVEL 1.3 MG/DL (1.8-2.4); PHOSPHORUS LEVEL 2.7 MG/DL (2.5-4.9)
[2022-08-04] MEDS ORDERED: KCL 10MEQ/100ML SWI (KRUN) 10 MEQ in IV 1 EA IV ONE (19:30)
[2022-08-04] MEDS: HYDROcodone/APAP LIQUID 7.5-325MG 15ML UDC (LORTAB ELIXIR) PO PRN (20:34)
[2022-08-04] MEDS: QUEtiapine FUMARATE 50MG TAB PO SCH (20:51)
[2022-08-04] MEDS: ACETAMINOPHEN 1000MG 100ML IV BAG IV PRN (23:44)
[2022-08-05] VITALS (18 sets, daily range): BP systolic 147–166; BP diastolic 73–93; O2SAT 90–96
[2022-08-05] MEDS ORDERED: hydrOXYzine 10MG/5ML SYRUP PO ONE (01:00)
[2022-08-05] MEDS: OCTREOTIDE ACETATE 100MCG/ML VIAL **IV ADMINISTRATION ONLY IV SCH ×3 (01:14→17:46)
[2022-08-05] MEDS: HYDROMORPHONE HCL 0.5 MG/ 0.5 ML SYRINGE (J1170 PER 1) IV PRN ×3 (01:15→23:33)
[2022-08-05 05:55] LABS: BASO # 0.1 10^3/uL (0.0-0.2); BASO % 0.3 % (0.0-1.0); EOS # 0.2 10^3/uL (0.0-0.5); EOS % 1.1 % (0.0-3.0); HEMATOCRIT 30.8 % (42.0-52.0); HEMOGLOBIN 10.4 g/dl (13.5-17.5); LYMPH # 1.3 10^3/uL (1.5-5.0); LYMPH % 6.9 % (24.0-44.0); MEAN CORPUSCULAR HEMOGLOBIN 28.6 pg (27.0-33.0); MEAN CORPUSCULAR HGB CONC 33.8 g/dl (32.0-36.5); MEAN CORPUSCULAR VOLUME 84.6 fl (80.0-96.0); MONO % 8.9 % (2.0-8.0); NEUTROPHILS # 15.1 10^3/uL (1.5-8.5); PLATELET COUNT, AUTOMATED 359 10^3/uL (150-450); RED BLOOD COUNT 3.64 10^6/uL (4.30-6.10); WHITE BLOOD COUNT 18.6 10^3/uL (4.0-10.0)
[2022-08-05 05:57] LABS: MONO # 1.7 10^3/uL (0.0-0.8)
[2022-08-05 06:30] LABS: BLOOD UREA NITROGEN 7 MG/DL (7-18); CALCIUM LEVEL 7.5 MG/DL (8.8-10.2); CARBON DIOXIDE LEVEL 27 MEQ/L (21-32); CHLORIDE LEVEL 94 MEQ/L (98-107); CREATININE FOR GFR 0.38 MG/DL (0.70-1.30); GLOMERULAR FILTRATION RATE > 60.0 (>42); GLUCOSE, FASTING 156 MG/DL (70-100); POTASSIUM SERUM 3.1 MEQ/L (3.5-5.1); SODIUM LEVEL 130 MEQ/L (136-145)
[2022-08-05] MEDS: SODIUM CHLORIDE 0.9% INJ 10 ML SYR IV SCH (07:32)
[2022-08-05] MEDS: INSULIN LISPRO (NovoLOG) PER UNIT SC SCH ×3 (07:32→17:47)
[2022-08-05] MEDS: PANTOPRAZOLE 40MG VIAL IV SCH ×2 (08:30→20:01)
[2022-08-05] MEDS: NS 1,000 ML IV SCH (08:30)
[2022-08-05] MEDS ORDERED: MAG SULF 1GM/100ML (MAG RUN) 1 GM in IV 1 EA IV ONE (09:00)
[2022-08-05] MEDS ORDERED: POTASSIUM CHLORIDE 10% LIQ 20 MEQ/15 ML UDC PO SCH (09:00)
[2022-08-05] MEDS: POTASSIUM CHLORIDE 10% LIQ 20 MEQ/15 ML UDC JT SCH ×2 (12:31→20:01)
[2022-08-05] MEDS: ACETAMINOPHEN 1000MG 100ML IV BAG IV PRN (16:04)
[2022-08-05] MEDS: HYDROcodone/APAP LIQUID 7.5-325MG 15ML UDC (LORTAB ELIXIR) PO PRN (20:00)
[2022-08-05] MEDS: OLANZapine 2.5MG TABLET PO PRN (20:01)
[2022-08-05] MEDS: QUEtiapine FUMARATE 50MG TAB PO SCH (20:01)
[2022-08-05] MEDS: MIRTAZAPINE 15 MG TAB GT SCH (20:01)
[2022-08-06] VITALS (11 sets, daily range): BP systolic 135–185; BP diastolic 85–90; O2SAT 94–96
[2022-08-06] MEDS: INSULIN LISPRO (NovoLOG) PER UNIT SC SCH ×5 (00:07→23:37)
[2022-08-06] MEDS: ACETAMINOPHEN 1000MG 100ML IV BAG IV PRN ×2 (00:42→23:40)
[2022-08-06] MEDS ORDERED: MORPHINE 4 MG/ML 1ML VIAL IV ONE (01:00)
[2022-08-06] MEDS: NS 1,000 ML IV SCH ×2 (01:13→19:30)
[2022-08-06] MEDS: OCTREOTIDE ACETATE 100MCG/ML VIAL **IV ADMINISTRATION ONLY IV SCH ×3 (03:13→18:24)
[2022-08-06 06:20] LABS: BASO % 0.3 % (0.0-1.0); EOS # 0.2 10^3/uL (0.0-0.5); EOS % 1.2 % (0.0-3.0); HEMATOCRIT 29.9 % (42.0-52.0); HEMOGLOBIN 9.7 g/dl (13.5-17.5); LYMPH # 1.3 10^3/uL (1.5-5.0); LYMPH % 9.3 % (24.0-44.0); MEAN CORPUSCULAR HEMOGLOBIN 28.2 pg (27.0-33.0); MEAN CORPUSCULAR HGB CONC 32.4 g/dl (32.0-36.5); MEAN CORPUSCULAR VOLUME 86.9 fl (80.0-96.0); MONO # 1.2 10^3/uL (0.0-0.8); MONO % 8.7 % (2.0-8.0); NEUTROPHILS # 10.8 10^3/uL (1.5-8.5); PLATELET COUNT, AUTOMATED 369 10^3/uL (150-450); RED BLOOD COUNT 3.44 10^6/uL (4.30-6.10); WHITE BLOOD COUNT 13.7 10^3/uL (4.0-10.0)
[2022-08-06 07:11] LABS: BLOOD UREA NITROGEN 6 MG/DL (7-18); CALCIUM LEVEL 6.7 MG/DL (8.8-10.2); CARBON DIOXIDE LEVEL 25 MEQ/L (21-32); CHLORIDE LEVEL 107 MEQ/L (98-107); CREATININE FOR GFR 0.27 MG/DL (0.70-1.30); GLOMERULAR FILTRATION RATE > 60.0 (>42); GLUCOSE, FASTING 83 MG/DL (70-100); MAGNESIUM LEVEL 0.8 MG/DL (1.8-2.4); SODIUM LEVEL 139 MEQ/L (136-145)
[2022-08-06] MEDS ORDERED: MAG SULF 1GM/100ML (MAG RUN) 1 GM in IV 1 EA IV ONE ×2 (08:30→09:30)
[2022-08-06] MEDS: POTASSIUM CHLORIDE 10% LIQ 20 MEQ/15 ML UDC JT SCH (08:37)
[2022-08-06] MEDS: PANTOPRAZOLE 40MG VIAL IV SCH ×2 (08:37→20:48)
[2022-08-06] MEDS: hydrALAZINE 20MG/ML 1ML VIAL (J0360 PER 20MG) IV PRN ×2 (11:57→20:48)
[2022-08-06] MEDS: HYDROMORPHONE HCL 0.5 MG/ 0.5 ML SYRINGE (J1170 PER 1) IV PRN ×3 (14:11→21:52)
[2022-08-06] MEDS ORDERED: LIDOCAINE 1% MDV 20ML VIAL As Ordered ONE ×2 (15:14→16:28)
[2022-08-06] MEDS ORDERED: VANCOMYCIN HCL 1,000 MG, VIAL MATE ADAPTER 1 EACH in NS 250 ML IV SCH (17:00)
[2022-08-06] MEDS ORDERED: PIPERACILLIN/TAZOBACTAM SOD 3.375 GM in D5W MINI-BAG PLUS 50 ML IV SCH (17:00)
[2022-08-06] MEDS: MEROPENEM INJ 1 GM in IV 1 EA IV SCH (18:24)
[2022-08-06] MEDS ORDERED: VANCOMYCIN HCL 750 MG, VIAL MATE ADAPTER 1 EACH in D5W 250 ML IV ONE ×2 (20:00→21:00)
[2022-08-06] MEDS: MIRTAZAPINE 15 MG TAB GT SCH (20:49)
[2022-08-06] MEDS: QUEtiapine FUMARATE 50MG TAB PO SCH (20:49)
[2022-08-06] MEDS: MICAFUNGIN SODIUM 100 MG in D5W MINI-BAG PLUS 100 ML IV SCH (20:50)
[2022-08-06 20:56] LABS: MAGNESIUM LEVEL 1.1 MG/DL (1.8-2.4); POTASSIUM SERUM 3.5 MEQ/L (3.5-5.1)
[2022-08-06] MEDS: MAG SULF 1GM/100ML (MAG RUN) 1 GM in IV 1 EA IV SCH (23:59)
[2022-08-07] VITALS (19 sets, daily range): BP systolic 126–197; BP diastolic 81–105; O2SAT 93–97
[2022-08-07] MEDS: hydrALAZINE 20MG/ML 1ML VIAL (J0360 PER 20MG) IV PRN ×2 (01:01→15:45)
[2022-08-07] MEDS: MAG SULF 1GM/100ML (MAG RUN) 1 GM in IV 1 EA IV SCH ×3 (01:03→15:49)
[2022-08-07] MEDS: OCTREOTIDE ACETATE 100MCG/ML VIAL **IV ADMINISTRATION ONLY IV SCH ×3 (01:03→18:15)
[2022-08-07] MEDS: MEROPENEM INJ 1 GM in IV 1 EA IV SCH ×3 (01:04→18:06)
[2022-08-07] MEDS: HYDROMORPHONE HCL 0.5 MG/ 0.5 ML SYRINGE (J1170 PER 1) IV PRN (01:10)
[2022-08-07] MEDS ORDERED: LABETALOL 100MG/20ML VIAL IV ONE (04:00)
[2022-08-07 04:11] LABS: BASO # 0.1 10^3/uL (0.0-0.2); BASO % 0.7 % (0.0-1.0); EOS # 0.1 10^3/uL (0.0-0.5); EOS % 0.8 % (0.0-3.0); HEMATOCRIT 31.5 % (42.0-52.0); HEMOGLOBIN 10.2 g/dl (13.5-17.5); LYMPH # 1.1 10^3/uL (1.5-5.0); LYMPH % 10.1 % (24.0-44.0); MEAN CORPUSCULAR HEMOGLOBIN 28.1 pg (27.0-33.0); MEAN CORPUSCULAR HGB CONC 32.4 g/dl (32.0-36.5); MEAN CORPUSCULAR VOLUME 86.8 fl (80.0-96.0); MONO # 1.2 10^3/uL (0.0-0.8); NEUTROPHILS # 8.1 10^3/uL (1.5-8.5); NEUTROPHILS % 76.1 % (36.0-66.0); PLATELET COUNT, AUTOMATED 404 10^3/uL (150-450); RED BLOOD COUNT 3.63 10^6/uL (4.30-6.10); WHITE BLOOD COUNT 10.6 10^3/uL (4.0-10.0)
[2022-08-07] MEDS: VANCOMYCIN HCL 750 MG, VIAL MATE ADAPTER 1 EACH in D5W 250 ML IV SCH (04:14)
[2022-08-07] MEDS: NS 1,000 ML IV SCH (04:14)
[2022-08-07 04:38] LABS: BLOOD UREA NITROGEN 7 MG/DL (7-18); CALCIUM LEVEL 7.4 MG/DL (8.8-10.2); CARBON DIOXIDE LEVEL 24 MEQ/L (21-32); CHLORIDE LEVEL 99 MEQ/L (98-107); CREATININE FOR GFR 0.42 MG/DL (0.70-1.30); GLOMERULAR FILTRATION RATE > 60.0 (>42); GLUCOSE, FASTING 116 MG/DL (70-100); MAGNESIUM LEVEL 1.3 MG/DL (1.8-2.4); PHOSPHORUS LEVEL 2.9 MG/DL (2.5-4.9); POTASSIUM SERUM 3.3 MEQ/L (3.5-5.1); SODIUM LEVEL 133 MEQ/L (136-145)
[2022-08-07] MEDS: INSULIN LISPRO (NovoLOG) PER UNIT SC SCH ×4 (05:18→23:35)
[2022-08-07] MEDS: SODIUM CHLORIDE 0.9% INJ 10 ML SYR IV SCH ×2 (05:19→18:07)
[2022-08-07] MEDS: VANCOMYCIN HCL 500 MG in D5W MINI-BAG PLUS 100 ML IV SCH (05:19)
[2022-08-07] MEDS ORDERED: MAG SULF 1GM/100ML (MAG RUN) 1 GM in IV 1 EA IV ONE ×2 (07:00→16:00)
[2022-08-07] MEDS: KCL 10MEQ/100ML SWI (KRUN) 10 MEQ in IV 1 EA IV SCH ×3 (09:07→12:33)
[2022-08-07] MEDS: PANTOPRAZOLE 40MG VIAL IV SCH ×2 (09:14→20:01)
[2022-08-07] MEDS: lisinopriL 5 MG TAB PO SCH (10:41)
[2022-08-07] MEDS: MICAFUNGIN SODIUM 100 MG in D5W MINI-BAG PLUS 100 ML IV SCH (19:30)
[2022-08-07] MEDS: MIRTAZAPINE 15 MG TAB GT SCH (20:01)
[2022-08-07] MEDS: QUEtiapine FUMARATE 50MG TAB PO SCH (20:01)
[2022-08-07] MEDS: RAMELTEON 8 MG TAB (ROZEREM) PO SCH (20:02)
[2022-08-08] VITALS (21 sets, daily range): BP systolic 136–196; BP diastolic 63–111; O2SAT 92–99
[2022-08-08] MEDS: hydrALAZINE 20MG/ML 1ML VIAL (J0360 PER 20MG) IV PRN ×2 (00:27→16:14)
[2022-08-08] MEDS: OCTREOTIDE ACETATE 100MCG/ML VIAL **IV ADMINISTRATION ONLY IV SCH ×3 (01:00→18:27)
[2022-08-08] MEDS: MEROPENEM INJ 1 GM in IV 1 EA IV SCH ×3 (01:00→19:38)
[2022-08-08] MEDS: SODIUM CHLORIDE 0.9% INJ 10 ML SYR IV SCH ×2 (05:06→17:44)
[2022-08-08] MEDS: NS 1,000 ML IV SCH ×2 (05:13→23:15)
[2022-08-08] MEDS: INSULIN LISPRO (NovoLOG) PER UNIT SC SCH ×4 (05:19→23:17)
[2022-08-08] MEDS ORDERED: MAG SULF 1GM/100ML (MAG RUN) 1 GM in IV 1 EA IV ONE (06:00)
[2022-08-08 06:51] LABS: BASO # 0.1 10^3/uL (0.0-0.2); BASO % 0.6 % (0.0-1.0); EOS # 0.2 10^3/uL (0.0-0.5); EOS % 1.5 % (0.0-3.0); HEMATOCRIT 30.4 % (42.0-52.0); HEMOGLOBIN 10.1 g/dl (13.5-17.5); LYMPH # 0.8 10^3/uL (1.5-5.0); LYMPH % 7.9 % (24.0-44.0); MEAN CORPUSCULAR HEMOGLOBIN 28.3 pg (27.0-33.0); MEAN CORPUSCULAR HGB CONC 33.2 g/dl (32.0-36.5); MEAN CORPUSCULAR VOLUME 85.2 fl (80.0-96.0); MONO # 1.1 10^3/uL (0.0-0.8); NEUTROPHILS # 8.1 10^3/uL (1.5-8.5); NEUTROPHILS % 78.2 % (36.0-66.0); PLATELET COUNT, AUTOMATED 371 10^3/uL (150-450); RED BLOOD COUNT 3.57 10^6/uL (4.30-6.10); WHITE BLOOD COUNT 10.4 10^3/uL (4.0-10.0)
[2022-08-08 07:26] LABS: BLOOD UREA NITROGEN 8 MG/DL (7-18); CALCIUM LEVEL 7.2 MG/DL (8.8-10.2); CARBON DIOXIDE LEVEL 27 MEQ/L (21-32); CHLORIDE LEVEL 99 MEQ/L (98-107); CREATININE FOR GFR 0.38 MG/DL (0.70-1.30); GLOMERULAR FILTRATION RATE > 60.0 (>42); GLUCOSE, FASTING 153 MG/DL (70-100); MAGNESIUM LEVEL 1.4 MG/DL (1.8-2.4); POTASSIUM SERUM 3.3 MEQ/L (3.5-5.1); SODIUM LEVEL 134 MEQ/L (136-145)
[2022-08-08] MEDS: POTASSIUM CHLORIDE 10% LIQ 20 MEQ/15 ML UDC FT SCH (08:37)
[2022-08-08] MEDS: lisinopriL 5 MG TAB PO SCH (08:37)
[2022-08-08] MEDS: PANTOPRAZOLE 40MG VIAL IV SCH ×2 (08:37→20:12)
[2022-08-08] MEDS ORDERED: MAG SULF 1GM/100ML (MAG RUN) 1 GM in IV 1 EA IV SCH (09:00)
[2022-08-08] MEDS: KCL 10MEQ/100ML SWI (KRUN) 10 MEQ in IV 1 EA IV SCH ×3 (09:35→12:18)
[2022-08-08] MEDS: MAG SULF 1GM/100ML (MAG RUN) 1 GM in IV 1 EA IV SCH ×4 (09:35→18:48)
[2022-08-08] MEDS: ENOXAPARIN 80MG/0.8ML SYRINGE (J1650 PER 10MG) SC SCH ×2 (12:20→20:12)
[2022-08-08 16:47] LABS: C REACTIVE PROTEIN QUANTITATIV 5.37 MG/DL (0.00-0.30); MAGNESIUM LEVEL 1.6 MG/DL (1.8-2.4); POTASSIUM SERUM 3.9 MEQ/L (3.5-5.1); VANCOMYCIN LEVEL TROUGH 2.1 UG/ML (10.0-20.0)
[2022-08-08] MEDS: VANCOMYCIN HCL 750 MG, VIAL MATE ADAPTER 1 EACH in D5W 250 ML IV SCH (17:09)
[2022-08-08] MEDS ORDERED: hydrALAZINE 20MG/ML 1ML VIAL (J0360 PER 20MG) IV ONE (18:10)
[2022-08-08] MEDS: VANCOMYCIN HCL 500 MG in D5W MINI-BAG PLUS 100 ML IV SCH (18:27)
[2022-08-08] MEDS ORDERED: LABETALOL 100MG/20ML VIAL IV ONE (19:00)
[2022-08-08] MEDS: MICAFUNGIN SODIUM 100 MG in D5W MINI-BAG PLUS 100 ML IV SCH (20:07)
[2022-08-08] MEDS: QUEtiapine FUMARATE 50MG TAB PO SCH (20:13)
[2022-08-08] MEDS: MIRTAZAPINE 15 MG TAB GT SCH (20:13)
[2022-08-08] MEDS: RAMELTEON 8 MG TAB (ROZEREM) PO SCH (20:13)
[2022-08-09] VITALS (18 sets, daily range): BP systolic 144–182; BP diastolic 65–88; O2SAT 92–95
[2022-08-09] MEDS: OCTREOTIDE ACETATE 100MCG/ML VIAL **IV ADMINISTRATION ONLY IV SCH ×3 (01:07→17:24)
[2022-08-09] MEDS: MEROPENEM INJ 1 GM in IV 1 EA IV SCH ×3 (01:07→17:24)
[2022-08-09] MEDS: MAG SULF 1GM/100ML (MAG RUN) 1 GM in IV 1 EA IV SCH ×6 (01:07→17:24)
[2022-08-09] MEDS: VANCOMYCIN HCL 750 MG, VIAL MATE ADAPTER 1 EACH in D5W 250 ML IV SCH ×3 (03:09→21:52)
[2022-08-09] MEDS: VANCOMYCIN HCL 500 MG in D5W MINI-BAG PLUS 100 ML IV SCH (04:13)
[2022-08-09] MEDS: SODIUM CHLORIDE 0.9% INJ 10 ML SYR IV SCH ×2 (05:18→17:25)
[2022-08-09] MEDS: INSULIN LISPRO (NovoLOG) PER UNIT SC SCH ×3 (05:18→17:26)
[2022-08-09 07:26] LABS: BASO # 0.1 10^3/uL (0.0-0.2); EOS # 0.2 10^3/uL (0.0-0.5); HEMATOCRIT 30.3 % (42.0-52.0); HEMOGLOBIN 9.8 g/dl (13.5-17.5); LYMPH # 0.8 10^3/uL (1.5-5.0); LYMPH % 9.4 % (24.0-44.0); MEAN CORPUSCULAR HEMOGLOBIN 28.3 pg (27.0-33.0); MEAN CORPUSCULAR HGB CONC 32.3 g/dl (32.0-36.5); MEAN CORPUSCULAR VOLUME 87.6 fl (80.0-96.0); MONO % 12.4 % (2.0-8.0); NEUTROPHILS # 6.2 10^3/uL (1.5-8.5); NEUTROPHILS % 74.4 % (36.0-66.0); PLATELET COUNT, AUTOMATED 405 10^3/uL (150-450); RED BLOOD COUNT 3.46 10^6/uL (4.30-6.10); WHITE BLOOD COUNT 8.3 10^3/uL (4.0-10.0)
[2022-08-09 08:07] LABS: BLOOD UREA NITROGEN 8 MG/DL (7-18); C REACTIVE PROTEIN QUANTITATIV 3.76 MG/DL (0.00-0.30); CALCIUM LEVEL 7.5 MG/DL (8.8-10.2); CARBON DIOXIDE LEVEL 27 MEQ/L (21-32); CHLORIDE LEVEL 100 MEQ/L (98-107); CREATININE FOR GFR 0.43 MG/DL (0.70-1.30); GLOMERULAR FILTRATION RATE > 60.0 (>42); GLUCOSE, FASTING 122 MG/DL (70-100); MAGNESIUM LEVEL 1.6 MG/DL (1.8-2.4); POTASSIUM SERUM 3.7 MEQ/L (3.5-5.1); SODIUM LEVEL 133 MEQ/L (136-145)
[2022-08-09] MEDS: lisinopriL 5 MG TAB PO SCH (08:17)
[2022-08-09] MEDS: PANTOPRAZOLE 40MG VIAL IV SCH ×2 (08:17→21:53)
[2022-08-09] MEDS: ENOXAPARIN 80MG/0.8ML SYRINGE (J1650 PER 10MG) SC SCH ×2 (08:18→21:52)
[2022-08-09] MEDS: POTASSIUM CHLORIDE 10% LIQ 20 MEQ/15 ML UDC FT SCH (08:18)
[2022-08-09] MEDS: CARVedilol 6.25 MG TAB PO SCH ×2 (10:34→21:53)
[2022-08-09 15:49] LABS: MAGNESIUM LEVEL 1.7 MG/DL (1.8-2.4); POTASSIUM SERUM 4.4 MEQ/L (3.5-5.1)
[2022-08-09] MEDS: hydrALAZINE 20MG/ML 1ML VIAL (J0360 PER 20MG) IV PRN ×2 (15:57)
[2022-08-09] MEDS: MICAFUNGIN SODIUM 100 MG in D5W MINI-BAG PLUS 100 ML IV SCH (18:10)
[2022-08-09] MEDS: NS 1,000 ML IV SCH (18:11)
[2022-08-09] MEDS: QUEtiapine FUMARATE 50MG TAB PO SCH (21:53)
[2022-08-09] MEDS: RAMELTEON 8 MG TAB (ROZEREM) PO SCH (21:54)
[2022-08-09] MEDS: MIRTAZAPINE 15 MG TAB GT SCH (21:54)
[2022-08-10] VITALS (8 sets, daily range): BP systolic 135–202; BP diastolic 75–93
[2022-08-10] MEDS: INSULIN LISPRO (NovoLOG) PER UNIT SC SCH ×5 (00:34→23:57)
[2022-08-10] MEDS: hydrALAZINE 20MG/ML 1ML VIAL (J0360 PER 20MG) IV PRN ×3 (00:35→13:27)
[2022-08-10] MEDS: MEROPENEM INJ 1 GM in IV 1 EA IV SCH ×2 (01:27→08:34)
[2022-08-10] MEDS: MAG SULF 1GM/100ML (MAG RUN) 1 GM in IV 1 EA IV SCH ×6 (01:28→19:26)
[2022-08-10] MEDS: OCTREOTIDE ACETATE 100MCG/ML VIAL **IV ADMINISTRATION ONLY IV SCH ×3 (02:36→18:36)
[2022-08-10] MEDS: VANCOMYCIN HCL 750 MG, VIAL MATE ADAPTER 1 EACH in D5W 250 ML IV SCH ×2 (04:52→13:26)
[2022-08-10 05:49] LABS: BASO # 0.1 10^3/uL (0.0-0.2); BASO % 1.1 % (0.0-1.0); EOS # 0.3 10^3/uL (0.0-0.5); EOS % 3.6 % (0.0-3.0); HEMATOCRIT 31.1 % (42.0-52.0); MEAN CORPUSCULAR HEMOGLOBIN 28.2 pg (27.0-33.0); MEAN CORPUSCULAR HGB CONC 32.2 g/dl (32.0-36.5); MEAN CORPUSCULAR VOLUME 87.6 fl (80.0-96.0); MONO % 12.7 % (2.0-8.0); NEUTROPHILS # 5.6 10^3/uL (1.5-8.5); NEUTROPHILS % 69.9 % (36.0-66.0); PLATELET COUNT, AUTOMATED 373 10^3/uL (150-450); RED BLOOD COUNT 3.55 10^6/uL (4.30-6.10); WHITE BLOOD COUNT 8.1 10^3/uL (4.0-10.0)
[2022-08-10 06:29] LABS: BLOOD UREA NITROGEN 7 MG/DL (7-18); C REACTIVE PROTEIN QUANTITATIV 2.59 MG/DL (0.00-0.30); CALCIUM LEVEL 7.7 MG/DL (8.8-10.2); CARBON DIOXIDE LEVEL 24 MEQ/L (21-32); CHLORIDE LEVEL 100 MEQ/L (98-107); CREATININE FOR GFR 0.37 MG/DL (0.70-1.30); GLOMERULAR FILTRATION RATE > 60.0 (>42); GLUCOSE, FASTING 164 MG/DL (70-100); MAGNESIUM LEVEL 1.7 MG/DL (1.8-2.4); POTASSIUM SERUM 3.8 MEQ/L (3.5-5.1); SODIUM LEVEL 131 MEQ/L (136-145)
[2022-08-10] MEDS: SODIUM CHLORIDE 0.9% INJ 10 ML SYR IV SCH ×2 (06:36→18:00)
[2022-08-10] MEDS: lisinopriL 5 MG TAB PO SCH (08:33)
[2022-08-10] MEDS: CARVedilol 6.25 MG TAB PO SCH ×2 (08:34→21:02)
[2022-08-10] MEDS: ENOXAPARIN 80MG/0.8ML SYRINGE (J1650 PER 10MG) SC SCH ×2 (08:34→21:03)
[2022-08-10] MEDS: PANTOPRAZOLE 40MG VIAL IV SCH ×2 (08:34→21:01)
[2022-08-10 13:20] LABS: VANCOMYCIN LEVEL TROUGH 10.9 UG/ML (10.0-20.0)
[2022-08-10 14:37] LABS: MAGNESIUM LEVEL 1.7 MG/DL (1.8-2.4); POTASSIUM SERUM 3.7 MEQ/L (3.5-5.1)
[2022-08-10] MEDS: NS 1,000 ML IV SCH (17:53)
[2022-08-10] MEDS: MICAFUNGIN SODIUM 100 MG in D5W MINI-BAG PLUS 100 ML IV SCH (18:09)
[2022-08-10] MEDS ORDERED: hydrALAZINE 20MG/ML 1ML VIAL (J0360 PER 20MG) IV PRN (19:00)
[2022-08-10] MEDS: VANCOMYCIN HCL 1,000 MG, VIAL MATE ADAPTER 1 EACH in D5W 250 ML IV SCH (19:32)
[2022-08-10] MEDS: RAMELTEON 8 MG TAB (ROZEREM) PO SCH (21:01)
[2022-08-10] MEDS: MIRTAZAPINE 15 MG TAB GT SCH (21:01)
[2022-08-10] MEDS: **hydrALAZINE HCL** 25 MG TAB PO SCH (21:02)
[2022-08-10] MEDS: QUEtiapine FUMARATE 50MG TAB PO SCH (21:03)
[2022-08-11] VITALS (7 sets, daily range): BP systolic 146–183; BP diastolic 60–97
[2022-08-11] MEDS: MAG SULF 1GM/100ML (MAG RUN) 1 GM in IV 1 EA IV SCH ×6 (01:28→19:23)
[2022-08-11] MEDS: OCTREOTIDE ACETATE 100MCG/ML VIAL **IV ADMINISTRATION ONLY IV SCH ×3 (01:28→18:14)
[2022-08-11] MEDS: VANCOMYCIN HCL 1,000 MG, VIAL MATE ADAPTER 1 EACH in D5W 250 ML IV SCH ×3 (04:09→20:05)
[2022-08-11 05:38] LABS: BASO # 0.1 10^3/uL (0.0-0.2); BASO % 1.2 % (0.0-1.0); EOS # 0.2 10^3/uL (0.0-0.5); EOS % 2.6 % (0.0-3.0); HEMATOCRIT 30.7 % (42.0-52.0); HEMOGLOBIN 9.9 g/dl (13.5-17.5); LYMPH # 0.9 10^3/uL (1.5-5.0); LYMPH % 11.2 % (24.0-44.0); MEAN CORPUSCULAR HEMOGLOBIN 27.7 pg (27.0-33.0); MEAN CORPUSCULAR HGB CONC 32.2 g/dl (32.0-36.5); MEAN CORPUSCULAR VOLUME 85.8 fl (80.0-96.0); NEUTROPHILS # 5.8 10^3/uL (1.5-8.5); NEUTROPHILS % 72.1 % (36.0-66.0); PLATELET COUNT, AUTOMATED 389 10^3/uL (150-450); RED BLOOD COUNT 3.58 10^6/uL (4.30-6.10); WHITE BLOOD COUNT 8.1 10^3/uL (4.0-10.0)
[2022-08-11] MEDS: **hydrALAZINE HCL** 25 MG TAB PO SCH ×3 (05:40→21:38)
[2022-08-11] MEDS: INSULIN LISPRO (NovoLOG) PER UNIT SC SCH ×3 (05:41→18:13)
[2022-08-11] MEDS: SODIUM CHLORIDE 0.9% INJ 10 ML SYR IV SCH ×2 (05:43→18:14)
[2022-08-11 06:06] LABS: BLOOD UREA NITROGEN 9 MG/DL (7-18); C REACTIVE PROTEIN QUANTITATIV 1.93 MG/DL (0.00-0.30); CALCIUM LEVEL 7.7 MG/DL (8.8-10.2); CARBON DIOXIDE LEVEL 24 MEQ/L (21-32); CHLORIDE LEVEL 99 MEQ/L (98-107); CREATININE FOR GFR 0.39 MG/DL (0.70-1.30); GLOMERULAR FILTRATION RATE > 60.0 (>42); GLUCOSE, FASTING 219 MG/DL (70-100); MAGNESIUM LEVEL 1.7 MG/DL (1.8-2.4); POTASSIUM SERUM 3.6 MEQ/L (3.5-5.1); SODIUM LEVEL 130 MEQ/L (136-145)
[2022-08-11] MEDS: POTASSIUM CHLORIDE 10% LIQ 20 MEQ/15 ML UDC FT SCH ×2 (09:28→21:37)
[2022-08-11] MEDS: lisinopriL 5 MG TAB PO SCH (09:29)
[2022-08-11] MEDS: CARVedilol 6.25 MG TAB PO SCH ×2 (09:29→21:36)
[2022-08-11] MEDS: PANTOPRAZOLE 40MG VIAL IV SCH ×2 (09:29→20:05)
[2022-08-11] MEDS: ENOXAPARIN 80MG/0.8ML SYRINGE (J1650 PER 10MG) SC SCH ×2 (09:29→21:32)
[2022-08-11] MEDS: NS 1,000 ML IV SCH (15:35)
[2022-08-11 16:05] LABS: MAGNESIUM LEVEL 1.5 MG/DL (1.8-2.4); POTASSIUM SERUM 3.7 MEQ/L (3.5-5.1)
[2022-08-11] MEDS: MICAFUNGIN SODIUM 100 MG in D5W MINI-BAG PLUS 100 ML IV SCH (18:48)
[2022-08-11] MEDS: MIRTAZAPINE 15 MG TAB GT SCH (21:32)
[2022-08-11] MEDS: RAMELTEON 8 MG TAB (ROZEREM) PO SCH (21:32)
[2022-08-11] MEDS: QUEtiapine FUMARATE 50MG TAB PO SCH (21:36)
[2022-08-12] VITALS: BP 150/84
[2022-08-12] MEDS: INSULIN LISPRO (NovoLOG) PER UNIT SC SCH ×5 (01:06→23:36)
[2022-08-12] MEDS: MAG SULF 1GM/100ML (MAG RUN) 1 GM in IV 1 EA IV SCH ×6 (01:07→19:58)
[2022-08-12] MEDS: OCTREOTIDE ACETATE 100MCG/ML VIAL **IV ADMINISTRATION ONLY IV SCH ×3 (02:18→18:15)
[2022-08-12 04:22] VITALS: BP 160/72
[2022-08-12] MEDS: VANCOMYCIN HCL 1,000 MG, VIAL MATE ADAPTER 1 EACH in D5W 250 ML IV SCH ×3 (04:49→19:57)
[2022-08-12] MEDS: **hydrALAZINE HCL** 25 MG TAB PO SCH ×3 (05:47→22:05)
[2022-08-12] MEDS: SODIUM CHLORIDE 0.9% INJ 10 ML SYR IV SCH ×2 (06:00→18:16)
[2022-08-12 06:15] LABS: BASO # 0.1 10^3/uL (0.0-0.2); BASO % 1.7 % (0.0-1.0); EOS # 0.2 10^3/uL (0.0-0.5); EOS % 1.9 % (0.0-3.0); HEMATOCRIT 30.3 % (42.0-52.0); HEMOGLOBIN 9.8 g/dl (13.5-17.5); LYMPH # 0.9 10^3/uL (1.5-5.0); LYMPH % 10.5 % (24.0-44.0); MEAN CORPUSCULAR HEMOGLOBIN 28.2 pg (27.0-33.0); MEAN CORPUSCULAR HGB CONC 32.3 g/dl (32.0-36.5); MEAN CORPUSCULAR VOLUME 87.1 fl (80.0-96.0); MONO # 1.3 10^3/uL (0.0-0.8); NEUTROPHILS # 5.7 10^3/uL (1.5-8.5); NEUTROPHILS % 69.2 % (36.0-66.0); PLATELET COUNT, AUTOMATED 402 10^3/uL (150-450); RED BLOOD COUNT 3.48 10^6/uL (4.30-6.10); WHITE BLOOD COUNT 8.3 10^3/uL (4.0-10.0)
[2022-08-12 06:36] LABS: BLOOD UREA NITROGEN 8 MG/DL (7-18); C REACTIVE PROTEIN QUANTITATIV 1.62 MG/DL (0.00-0.30); CALCIUM LEVEL 7.8 MG/DL (8.8-10.2); CARBON DIOXIDE LEVEL 26 MEQ/L (21-32); CHLORIDE LEVEL 99 MEQ/L (98-107); CREATININE FOR GFR 0.35 MG/DL (0.70-1.30); GLOMERULAR FILTRATION RATE > 60.0 (>42); GLUCOSE, FASTING 149 MG/DL (70-100); MAGNESIUM LEVEL 1.7 MG/DL (1.8-2.4); SODIUM LEVEL 132 MEQ/L (136-145)
[2022-08-12 07:51] VITALS: BP 152/70
[2022-08-12] MEDS ORDERED: TAMSULOSIN 0.4 MG CAP PO SCH (09:00)
[2022-08-12] MEDS: lisinopriL 5 MG TAB PO SCH (09:08)
[2022-08-12] MEDS: PANTOPRAZOLE 40MG VIAL IV SCH ×2 (09:08→22:01)
[2022-08-12] MEDS: POTASSIUM CHLORIDE 10% LIQ 20 MEQ/15 ML UDC FT SCH (09:09)
[2022-08-12] MEDS: CARVedilol 6.25 MG TAB PO SCH ×2 (09:09→22:05)
[2022-08-12] MEDS: FINASTERIDE 5MG TAB PO SCH (09:25)
[2022-08-12] MEDS: ENOXAPARIN 80MG/0.8ML SYRINGE (J1650 PER 10MG) SC SCH ×2 (09:30→22:01)
[2022-08-12 11:32] VITALS: BP 150/68
[2022-08-12 15:27] LABS: MAGNESIUM LEVEL 1.6 MG/DL (1.8-2.4); POTASSIUM SERUM 3.7 MEQ/L (3.5-5.1)
[2022-08-12 15:48] VITALS: BP 148/70
[2022-08-12] MEDS: MICAFUNGIN SODIUM 100 MG in D5W MINI-BAG PLUS 100 ML IV SCH (18:16)
[2022-08-12 20:30] VITALS: BP 158/76
[2022-08-12] MEDS ORDERED: MAGNESIUM OXIDE 400MG TAB (MAG-OX) PEG SCH (21:00)
[2022-08-12] MEDS: RAMELTEON 8 MG TAB (ROZEREM) PO SCH (22:01)
[2022-08-12] MEDS: QUEtiapine FUMARATE 50MG TAB PO SCH (22:02)
[2022-08-12] MEDS: MIRTAZAPINE 15 MG TAB GT SCH (22:02)
[2022-08-13] VITALS: BP 157/79
[2022-08-13 01:17] LABS: CHLORIDE,RANDOM URINE 30 MEQ/L; CREATININE,RANDOM URINE < 13.0 MG/DL; MAGNESIUM URINE RANDOM 7.9 MG/DL; POTASSIUM RANDOM URINE 6.9 MEQ/L; SODIUM,RANDOM URINE 39 MEQ/L
[2022-08-13] MEDS: MAG SULF 1GM/100ML (MAG RUN) 1 GM in IV 1 EA IV SCH ×5 (02:52→21:37)
[2022-08-13] MEDS: OCTREOTIDE ACETATE 100MCG/ML VIAL **IV ADMINISTRATION ONLY IV SCH (03:05)
[2022-08-13 04:03] VITALS: BP 144/78
[2022-08-13] MEDS: VANCOMYCIN HCL 1,000 MG, VIAL MATE ADAPTER 1 EACH in D5W 250 ML IV SCH ×3 (04:23→20:16)
[2022-08-13] MEDS: **hydrALAZINE HCL** 25 MG TAB PO SCH ×3 (05:53→21:37)
[2022-08-13] MEDS: SODIUM CHLORIDE 0.9% INJ 10 ML SYR IV SCH ×2 (05:54→18:11)
[2022-08-13] MEDS: INSULIN LISPRO (NovoLOG) PER UNIT SC SCH ×4 (05:54→23:43)
[2022-08-13] MEDS: GASTROGRAFIN SOLUTION 30ML PO SCH ×2 (06:00→06:28)
[2022-08-13 06:28] LABS: BASO # 0.1 10^3/uL (0.0-0.2); BASO % 1.4 % (0.0-1.0); EOS # 0.2 10^3/uL (0.0-0.5); EOS % 2.5 % (0.0-3.0); HEMATOCRIT 31.1 % (42.0-52.0); HEMOGLOBIN 9.9 g/dl (13.5-17.5); LYMPH # 0.9 10^3/uL (1.5-5.0); LYMPH % 12.7 % (24.0-44.0); MEAN CORPUSCULAR HEMOGLOBIN 27.7 pg (27.0-33.0); MEAN CORPUSCULAR HGB CONC 31.8 g/dl (32.0-36.5); MEAN CORPUSCULAR VOLUME 86.9 fl (80.0-96.0); MONO # 1.1 10^3/uL (0.0-0.8); MONO % 15.9 % (2.0-8.0); NEUTROPHILS # 4.6 10^3/uL (1.5-8.5); NEUTROPHILS % 66.8 % (36.0-66.0); PLATELET COUNT, AUTOMATED 409 10^3/uL (150-450); RED BLOOD COUNT 3.58 10^6/uL (4.30-6.10); WHITE BLOOD COUNT 6.9 10^3/uL (4.0-10.0)
[2022-08-13 07:15] LABS: BLOOD UREA NITROGEN 8 MG/DL (7-18); C REACTIVE PROTEIN QUANTITATIV 1.67 MG/DL (0.00-0.30); CALCIUM LEVEL 8.2 MG/DL (8.8-10.2); CARBON DIOXIDE LEVEL 26 MEQ/L (21-32); CHLORIDE LEVEL 99 MEQ/L (98-107); CREATININE FOR GFR 0.41 MG/DL (0.70-1.30); GLOMERULAR FILTRATION RATE > 60.0 (>42); GLUCOSE, FASTING 160 MG/DL (70-100); MAGNESIUM LEVEL 1.8 MG/DL (1.8-2.4); SODIUM LEVEL 133 MEQ/L (136-145)
[2022-08-13] MEDS ORDERED: ISOVUE-370 76% 100ML VIAL As Ordered ONE (07:34)
[2022-08-13 08:38] VITALS: BP 170/100
[2022-08-13] MEDS: PANTOPRAZOLE 40MG VIAL IV SCH ×2 (08:47→20:16)
[2022-08-13] MEDS: SODIUM CHLORIDE 0.9% INJ 10 ML SYR IV PRN ×2 (08:47→13:48)
[2022-08-13] MEDS: ENOXAPARIN 80MG/0.8ML SYRINGE (J1650 PER 10MG) SC SCH ×2 (08:47→20:17)
[2022-08-13] MEDS: CARVedilol 6.25 MG TAB PO SCH ×2 (08:48→20:18)
[2022-08-13] MEDS: lisinopriL 5 MG TAB PO SCH (08:49)
[2022-08-13] MEDS ORDERED: MAGNESIUM OXIDE 400MG TAB (MAG-OX) PEG SCH (09:00)
[2022-08-13] MEDS: FINASTERIDE 5MG TAB PO SCH ×2 (09:00→13:46)
[2022-08-13 12:10] VITALS: BP 152/88
[2022-08-13 16:00] VITALS: BP 152/82
[2022-08-13 16:25] LABS: MAGNESIUM LEVEL 1.3 MG/DL (1.8-2.4)
[2022-08-13] MEDS: MAGNESIUM OXIDE 400MG TAB (MAG-OX) PO SCH ×2 (18:08→20:17)
[2022-08-13] MEDS: MICAFUNGIN SODIUM 100 MG in D5W MINI-BAG PLUS 100 ML IV SCH (18:08)
[2022-08-13] MEDS ORDERED: FUROSEMIDE 40MG/4ML VIAL (J1940) IV ONE (18:35)
[2022-08-13 19:51] VITALS: BP 148/86
[2022-08-13] MEDS: RAMELTEON 8 MG TAB (ROZEREM) PO SCH (20:17)
[2022-08-13] MEDS: MIRTAZAPINE 15 MG TAB PO SCH (20:17)
[2022-08-13] MEDS: QUEtiapine FUMARATE 50MG TAB PO SCH (20:19)
[2022-08-13] MEDS ORDERED: MAGNESIUM OXIDE 400MG TAB (MAG-OX) PO SCH (21:00)
[2022-08-14 00:29] VITALS: BP 117/71
[2022-08-14 03:52] VITALS: BP 143/82
[2022-08-14] MEDS: VANCOMYCIN HCL 1,000 MG, VIAL MATE ADAPTER 1 EACH in D5W 250 ML IV SCH (04:32)
[2022-08-14] MEDS: INSULIN LISPRO (NovoLOG) PER UNIT SC SCH ×3 (05:48→18:46)
[2022-08-14] MEDS: SODIUM CHLORIDE 0.9% INJ 10 ML SYR IV SCH ×2 (05:49→18:47)
[2022-08-14] MEDS: **hydrALAZINE HCL** 25 MG TAB PO SCH (05:49)
[2022-08-14 05:56] LABS: BASO # 0.1 10^3/uL (0.0-0.2); BASO % 1.1 % (0.0-1.0); EOS # 0.2 10^3/uL (0.0-0.5); EOS % 2.4 % (0.0-3.0); HEMATOCRIT 29.2 % (42.0-52.0); HEMOGLOBIN 9.9 g/dl (13.5-17.5); LYMPH % 12.8 % (24.0-44.0); MEAN CORPUSCULAR HEMOGLOBIN 28.8 pg (27.0-33.0); MEAN CORPUSCULAR HGB CONC 33.9 g/dl (32.0-36.5); MEAN CORPUSCULAR VOLUME 84.9 fl (80.0-96.0); MONO # 1.2 10^3/uL (0.0-0.8); MONO % 15.8 % (2.0-8.0); NEUTROPHILS # 5.3 10^3/uL (1.5-8.5); NEUTROPHILS % 67.1 % (36.0-66.0); PLATELET COUNT, AUTOMATED 439 10^3/uL (150-450); RED BLOOD COUNT 3.44 10^6/uL (4.30-6.10); WHITE BLOOD COUNT 7.9 10^3/uL (4.0-10.0)
[2022-08-14 06:25] LABS: BLOOD UREA NITROGEN 11 MG/DL (7-18); CALCIUM LEVEL 8.2 MG/DL (8.8-10.2); CARBON DIOXIDE LEVEL 25 MEQ/L (21-32); CHLORIDE LEVEL 97 MEQ/L (98-107); CREATININE FOR GFR 0.44 MG/DL (0.70-1.30); GLOMERULAR FILTRATION RATE > 60.0 (>42); GLUCOSE, FASTING 182 MG/DL (70-100); MAGNESIUM LEVEL 1.5 MG/DL (1.8-2.4); SODIUM LEVEL 130 MEQ/L (136-145)
[2022-08-14] MEDS: MAG SULF 1GM/100ML (MAG RUN) 1 GM in IV 1 EA IV SCH ×5 (07:23→23:07)
[2022-08-14 07:27] VITALS: BP 142/71
[2022-08-14] MEDS ORDERED: FUROSEMIDE 40MG/4ML VIAL (J1940) IV SCH (09:00)
[2022-08-14] MEDS: PANTOPRAZOLE 40MG VIAL IV SCH ×2 (09:40→20:20)
[2022-08-14] MEDS: CARVedilol 6.25 MG TAB PO SCH ×2 (09:41→20:20)
[2022-08-14] MEDS: FINASTERIDE 5MG TAB PO SCH (09:41)
[2022-08-14] MEDS: MAGNESIUM OXIDE 400MG TAB (MAG-OX) PO SCH ×3 (09:42→20:19)
[2022-08-14] MEDS: lisinopriL 5 MG TAB PO SCH (09:42)
[2022-08-14] MEDS: ENOXAPARIN 80MG/0.8ML SYRINGE (J1650 PER 10MG) SC SCH ×2 (09:42→20:20)
[2022-08-14 11:19] VITALS: BP 135/81
[2022-08-14 16:20] VITALS: BP 150/95
[2022-08-14] MEDS ORDERED: FUROSEMIDE 20MG/2ML VIAL (J1940) IV ONE (16:50)
[2022-08-14 17:53] LABS: BLOOD UREA NITROGEN 12 MG/DL (7-18); CALCIUM LEVEL 8.4 MG/DL (8.8-10.2); CARBON DIOXIDE LEVEL 26 MEQ/L (21-32); CHLORIDE LEVEL 99 MEQ/L (98-107); CREATININE FOR GFR 0.44 MG/DL (0.70-1.30); GLOMERULAR FILTRATION RATE > 60.0 (>42); GLUCOSE, FASTING 112 MG/DL (70-100); MAGNESIUM LEVEL 1.5 MG/DL (1.8-2.4); SODIUM LEVEL 133 MEQ/L (136-145)
[2022-08-14 19:48] VITALS: BP 166/84
[2022-08-14] MEDS: QUEtiapine FUMARATE 50MG TAB PO SCH (20:18)
[2022-08-14] MEDS: RAMELTEON 8 MG TAB (ROZEREM) PO SCH (20:18)
[2022-08-14] MEDS: MIRTAZAPINE 15 MG TAB PO SCH (20:19)
[2022-08-15] MEDS: SODIUM CHLORIDE 0.9% INJ 10 ML SYR IV PRN ×2 (01:22→09:00)
[2022-08-15] MEDS: SODIUM CHLORIDE 0.9% INJ 10 ML SYR IV SCH ×2 (06:02→18:33)
[2022-08-15 06:05] VITALS: BP 150/84
[2022-08-15 06:26] LABS: BASO # 0.1 10^3/uL (0.0-0.2); EOS # 0.1 10^3/uL (0.0-0.5); EOS % 1.7 % (0.0-3.0); HEMATOCRIT 28.9 % (42.0-52.0); HEMOGLOBIN 9.5 g/dl (13.5-17.5); LYMPH # 1.1 10^3/uL (1.5-5.0); LYMPH % 13.1 % (24.0-44.0); MEAN CORPUSCULAR HEMOGLOBIN 28.5 pg (27.0-33.0); MEAN CORPUSCULAR HGB CONC 32.9 g/dl (32.0-36.5); MEAN CORPUSCULAR VOLUME 86.8 fl (80.0-96.0); MONO # 1.3 10^3/uL (0.0-0.8); MONO % 15.7 % (2.0-8.0); NEUTROPHILS # 5.5 10^3/uL (1.5-8.5); NEUTROPHILS % 67.8 % (36.0-66.0); PLATELET COUNT, AUTOMATED 400 10^3/uL (150-450); RED BLOOD COUNT 3.33 10^6/uL (4.30-6.10); WHITE BLOOD COUNT 8.1 10^3/uL (4.0-10.0)
[2022-08-15] MEDS: INSULIN LISPRO (NovoLOG) PER UNIT SC SCH ×4 (06:26→18:33)
[2022-08-15 07:03] LABS: BLOOD UREA NITROGEN 13 MG/DL (7-18); CALCIUM LEVEL 8.3 MG/DL (8.8-10.2); CARBON DIOXIDE LEVEL 26 MEQ/L (21-32); CHLORIDE LEVEL 100 MEQ/L (98-107); CREATININE FOR GFR 0.44 MG/DL (0.70-1.30); GLOMERULAR FILTRATION RATE > 60.0 (>42); GLUCOSE, FASTING 147 MG/DL (70-100); MAGNESIUM LEVEL 1.5 MG/DL (1.8-2.4); POTASSIUM SERUM 4.3 MEQ/L (3.5-5.1); SODIUM LEVEL 134 MEQ/L (136-145)
[2022-08-15] MEDS: PANTOPRAZOLE 40MG VIAL IV SCH ×2 (08:57→20:21)
[2022-08-15] MEDS: MAG SULF 1GM/100ML (MAG RUN) 1 GM in IV 1 EA IV SCH ×3 (08:57→11:22)
[2022-08-15] MEDS: MAGNESIUM OXIDE 400MG TAB (MAG-OX) PO SCH (08:59)
[2022-08-15] MEDS: ENOXAPARIN 80MG/0.8ML SYRINGE (J1650 PER 10MG) SC SCH ×2 (08:59→20:22)
[2022-08-15] MEDS: FINASTERIDE 5MG TAB PO SCH (08:59)
[2022-08-15] MEDS: CARVedilol 6.25 MG TAB PO SCH ×2 (09:00→20:22)
[2022-08-15] MEDS: lisinopriL 5 MG TAB PO SCH (09:00)
[2022-08-15 10:36] LABS: PHOSPHORUS LEVEL 3.8 MG/DL (2.5-4.9)
[2022-08-15 14:00] VITALS: BP 149/85
[2022-08-15] MEDS: MAGNESIUM GLUCONATE 500 MG TAB PO SCH ×2 (18:32→20:22)
[2022-08-15 19:32] VITALS: BP 159/90
[2022-08-15] MEDS: RAMELTEON 8 MG TAB (ROZEREM) PO SCH (20:22)
[2022-08-15] MEDS: MIRTAZAPINE 15 MG TAB PO SCH (20:22)
[2022-08-15] MEDS: QUEtiapine FUMARATE 50MG TAB PO SCH (20:22)
[2022-08-16] MEDS: INSULIN LISPRO (NovoLOG) PER UNIT SC SCH ×4 (00:38→17:39)
[2022-08-16] MEDS: SODIUM CHLORIDE 0.9% INJ 10 ML SYR IV SCH ×2 (05:38→18:37)
[2022-08-16 06:20] VITALS: BP 156/90
[2022-08-16 06:41] LABS: BASO # 0.1 10^3/uL (0.0-0.2); EOS # 0.2 10^3/uL (0.0-0.5); EOS % 2.1 % (0.0-3.0); HEMATOCRIT 29.6 % (42.0-52.0); HEMOGLOBIN 9.4 g/dl (13.5-17.5); LYMPH # 1.1 10^3/uL (1.5-5.0); LYMPH % 15.4 % (24.0-44.0); MEAN CORPUSCULAR HEMOGLOBIN 27.7 pg (27.0-33.0); MEAN CORPUSCULAR HGB CONC 31.8 g/dl (32.0-36.5); MEAN CORPUSCULAR VOLUME 87.3 fl (80.0-96.0); MONO % 13.4 % (2.0-8.0); NEUTROPHILS # 4.8 10^3/uL (1.5-8.5); PLATELET COUNT, AUTOMATED 405 10^3/uL (150-450); RED BLOOD COUNT 3.39 10^6/uL (4.30-6.10); WHITE BLOOD COUNT 7.2 10^3/uL (4.0-10.0)
[2022-08-16 07:21] LABS: BLOOD UREA NITROGEN 11 MG/DL (7-18); CALCIUM LEVEL 8.5 MG/DL (8.8-10.2); CARBON DIOXIDE LEVEL 26 MEQ/L (21-32); CHLORIDE LEVEL 101 MEQ/L (98-107); CREATININE FOR GFR 0.45 MG/DL (0.70-1.30); GLOMERULAR FILTRATION RATE > 60.0 (>42); GLUCOSE, FASTING 151 MG/DL (70-100); MAGNESIUM LEVEL 1.2 MG/DL (1.8-2.4); POTASSIUM SERUM 4.5 MEQ/L (3.5-5.1); SODIUM LEVEL 132 MEQ/L (136-145)
[2022-08-16] MEDS: PANTOPRAZOLE 40MG VIAL IV SCH ×2 (08:07→20:59)
[2022-08-16] MEDS: ENOXAPARIN 80MG/0.8ML SYRINGE (J1650 PER 10MG) SC SCH ×2 (08:07→21:00)
[2022-08-16] MEDS: MAG SULF 1GM/100ML (MAG RUN) 1 GM in IV 1 EA IV SCH ×3 (08:07→10:30)
[2022-08-16] MEDS: FINASTERIDE 5MG TAB PO SCH (08:08)
[2022-08-16] MEDS: CARVedilol 6.25 MG TAB PO SCH ×2 (08:08→21:01)
[2022-08-16] MEDS: lisinopriL 5 MG TAB PO SCH (08:08)
[2022-08-16] MEDS: MAGNESIUM GLUCONATE 500 MG TAB PO SCH ×3 (08:08→21:00)
[2022-08-16] MEDS: SODIUM CHLORIDE 0.9% INJ 10 ML SYR IV PRN (08:09)
[2022-08-16 14:00] VITALS: BP 152/92
[2022-08-16 21:00] VITALS: BP 122/74
[2022-08-16] MEDS: QUEtiapine FUMARATE 50MG TAB PO SCH (21:00)
[2022-08-16] MEDS: RAMELTEON 8 MG TAB (ROZEREM) PO SCH (21:01)
[2022-08-16] MEDS: MIRTAZAPINE 15 MG TAB PO SCH (21:01)
[2022-08-17] MEDS: INSULIN LISPRO (NovoLOG) PER UNIT SC SCH ×5 (00:01→21:00)
[2022-08-17 05:00] VITALS: BP 157/104
[2022-08-17] MEDS: SODIUM CHLORIDE 0.9% INJ 10 ML SYR IV SCH ×2 (05:42→17:35)
[2022-08-17 06:14] LABS: BASO # 0.1 10^3/uL (0.0-0.2); BASO % 0.9 % (0.0-1.0); EOS # 0.2 10^3/uL (0.0-0.5); EOS % 2.6 % (0.0-3.0); HEMATOCRIT 30.3 % (42.0-52.0); HEMOGLOBIN 9.8 g/dl (13.5-17.5); LYMPH # 1.4 10^3/uL (1.5-5.0); LYMPH % 17.8 % (24.0-44.0); MEAN CORPUSCULAR HEMOGLOBIN 28.2 pg (27.0-33.0); MEAN CORPUSCULAR HGB CONC 32.3 g/dl (32.0-36.5); MEAN CORPUSCULAR VOLUME 87.1 fl (80.0-96.0); MONO % 13.5 % (2.0-8.0); NEUTROPHILS # 4.9 10^3/uL (1.5-8.5); PLATELET COUNT, AUTOMATED 410 10^3/uL (150-450); RED BLOOD COUNT 3.48 10^6/uL (4.30-6.10); WHITE BLOOD COUNT 7.7 10^3/uL (4.0-10.0)
[2022-08-17 06:52] LABS: BLOOD UREA NITROGEN 10 MG/DL (7-18); CALCIUM LEVEL 8.6 MG/DL (8.8-10.2); CARBON DIOXIDE LEVEL 23 MEQ/L (21-32); CHLORIDE LEVEL 101 MEQ/L (98-107); CREATININE FOR GFR 0.42 MG/DL (0.70-1.30); GLOMERULAR FILTRATION RATE > 60.0 (>42); GLUCOSE, FASTING 108 MG/DL (70-100); MAGNESIUM LEVEL 1.1 MG/DL (1.8-2.4); POTASSIUM SERUM 4.7 MEQ/L (3.5-5.1); SODIUM LEVEL 133 MEQ/L (136-145)
[2022-08-17] MEDS: PANTOPRAZOLE 40MG VIAL IV SCH ×2 (08:22→21:09)
[2022-08-17] MEDS: MAG SULF 1GM/100ML (MAG RUN) 1 GM in IV 1 EA IV SCH ×3 (08:22→10:59)
[2022-08-17] MEDS: FINASTERIDE 5MG TAB PO SCH (08:23)
[2022-08-17] MEDS: MAGNESIUM GLUCONATE 500 MG TAB PO SCH ×3 (08:23→20:53)
[2022-08-17] MEDS: ENOXAPARIN 80MG/0.8ML SYRINGE (J1650 PER 10MG) SC SCH ×2 (08:23→20:54)
[2022-08-17] MEDS: CARVedilol 6.25 MG TAB PO SCH ×2 (08:25→20:53)
[2022-08-17] MEDS: lisinopriL 5 MG TAB PO SCH (08:25)
[2022-08-17] MEDS: SODIUM CHLORIDE 0.9% INJ 10 ML SYR IV PRN (12:04)
[2022-08-17 14:00] VITALS: BP 132/83
[2022-08-17] MEDS ORDERED: MAG SULF 1GM/100ML (MAG RUN) 1 GM in IV 1 EA IV ONE (19:25)
[2022-08-17 20:10] VITALS: BP 137/85
[2022-08-17] MEDS: RAMELTEON 8 MG TAB (ROZEREM) PO SCH (20:52)
[2022-08-17] MEDS: MIRTAZAPINE 15 MG TAB PO SCH (20:53)
[2022-08-17] MEDS: QUEtiapine FUMARATE 50MG TAB PO SCH (20:53)
[2022-08-18] MEDS: SODIUM CHLORIDE 0.9% INJ 10 ML SYR IV SCH ×2 (05:59→18:06)
[2022-08-18] MEDS: SODIUM CHLORIDE 0.9% INJ 10 ML SYR IV PRN ×2 (05:59→13:21)
[2022-08-18 06:00] VITALS: BP 155/99
[2022-08-18 07:06] LABS: BASO # 0.1 10^3/uL (0.0-0.2); BASO % 0.9 % (0.0-1.0); EOS # 0.2 10^3/uL (0.0-0.5); HEMATOCRIT 30.8 % (42.0-52.0); HEMOGLOBIN 10.1 g/dl (13.5-17.5); LYMPH # 1.3 10^3/uL (1.5-5.0); LYMPH % 16.8 % (24.0-44.0); MEAN CORPUSCULAR HEMOGLOBIN 28.5 pg (27.0-33.0); MEAN CORPUSCULAR HGB CONC 32.8 g/dl (32.0-36.5); MONO # 1.1 10^3/uL (0.0-0.8); MONO % 13.7 % (2.0-8.0); NEUTROPHILS # 5.2 10^3/uL (1.5-8.5); NEUTROPHILS % 65.2 % (36.0-66.0); PLATELET COUNT, AUTOMATED 398 10^3/uL (150-450); RED BLOOD COUNT 3.54 10^6/uL (4.30-6.10)
[2022-08-18 07:52] LABS: BLOOD UREA NITROGEN 9 MG/DL (7-18); CALCIUM LEVEL 8.9 MG/DL (8.8-10.2); CARBON DIOXIDE LEVEL 23 MEQ/L (21-32); CHLORIDE LEVEL 100 MEQ/L (98-107); CREATININE FOR GFR 0.54 MG/DL (0.70-1.30); GLOMERULAR FILTRATION RATE > 60.0 (>42); GLUCOSE, FASTING 131 MG/DL (70-100); MAGNESIUM LEVEL 1.3 MG/DL (1.8-2.4); POTASSIUM SERUM 4.8 MEQ/L (3.5-5.1); SODIUM LEVEL 130 MEQ/L (136-145)
[2022-08-18] MEDS: FINASTERIDE 5MG TAB PO SCH (09:34)
[2022-08-18] MEDS: CARVedilol 6.25 MG TAB PO SCH ×2 (09:34→19:58)
[2022-08-18] MEDS: ENOXAPARIN 80MG/0.8ML SYRINGE (J1650 PER 10MG) SC SCH ×2 (09:34→19:58)
[2022-08-18] MEDS: lisinopriL 5 MG TAB PO SCH (09:35)
[2022-08-18] MEDS: INSULIN LISPRO (NovoLOG) PER UNIT SC SCH ×4 (09:35→20:28)
[2022-08-18] MEDS: PANTOPRAZOLE 40MG VIAL IV SCH (09:36)
[2022-08-18] MEDS: MAG SULF 1GM/100ML (MAG RUN) 1 GM in IV 1 EA IV SCH ×2 (09:36→10:47)
[2022-08-18] MEDS: MAGNESIUM GLUCONATE 500 MG TAB PO SCH ×3 (10:47→19:56)
[2022-08-18] MEDS: LEVEMIR (INSULIN DETEMIR) 1 UNITS/0.01ML SC SCH (13:18)
[2022-08-18 14:00] VITALS: BP 144/97
[2022-08-18] MEDS: RAMELTEON 8 MG TAB (ROZEREM) PO SCH (19:57)
[2022-08-18] MEDS: MIRTAZAPINE 15 MG TAB PO SCH (19:57)
[2022-08-18] MEDS: QUEtiapine FUMARATE 50MG TAB PO SCH (19:57)
[2022-08-18 20:00] VITALS: BP 115/83
[2022-08-19] MEDS: ACETAMINOPHEN 500 MG TAB PO PRN (04:02)
[2022-08-19] MEDS: SODIUM CHLORIDE 0.9% INJ 10 ML SYR IV SCH ×2 (05:13→18:00)
[2022-08-19 06:00] VITALS: BP 163/99
[2022-08-19 06:08] LABS: BASO # 0.1 10^3/uL (0.0-0.2); BASO % 0.9 % (0.0-1.0); EOS # 0.2 10^3/uL (0.0-0.5); EOS % 2.2 % (0.0-3.0); HEMATOCRIT 28.6 % (42.0-52.0); HEMOGLOBIN 9.4 g/dl (13.5-17.5); LYMPH # 1.3 10^3/uL (1.5-5.0); LYMPH % 13.9 % (24.0-44.0); MEAN CORPUSCULAR HEMOGLOBIN 28.5 pg (27.0-33.0); MEAN CORPUSCULAR HGB CONC 32.9 g/dl (32.0-36.5); MEAN CORPUSCULAR VOLUME 86.7 fl (80.0-96.0); MONO # 1.1 10^3/uL (0.0-0.8); MONO % 11.8 % (2.0-8.0); NEUTROPHILS # 6.5 10^3/uL (1.5-8.5); PLATELET COUNT, AUTOMATED 375 10^3/uL (150-450); WHITE BLOOD COUNT 9.3 10^3/uL (4.0-10.0)
[2022-08-19 06:40] LABS: BLOOD UREA NITROGEN 12 MG/DL (7-18); CALCIUM LEVEL 8.5 MG/DL (8.8-10.2); CARBON DIOXIDE LEVEL 23 MEQ/L (21-32); CHLORIDE LEVEL 101 MEQ/L (98-107); CREATININE FOR GFR 0.52 MG/DL (0.70-1.30); GLOMERULAR FILTRATION RATE > 60.0 (>42); GLUCOSE, FASTING 109 MG/DL (70-100); POTASSIUM SERUM 4.8 MEQ/L (3.5-5.1); SODIUM LEVEL 133 MEQ/L (136-145)
[2022-08-19] MEDS ORDERED: MAGNESIUM SULFATE IN WATER 2 GM in IV 1 EA IV STA ×2 (07:19)
[2022-08-19] MEDS: INSULIN LISPRO (NovoLOG) PER UNIT SC SCH ×4 (07:30→21:00)
[2022-08-19] MEDS: MAG SULF 1GM/100ML (MAG RUN) X 2 DOSES (2GM TOTAL) IV SCH ×4 (09:56→09:57)
[2022-08-19] MEDS: MAGNESIUM GLUCONATE 500 MG TAB PO SCH ×3 (09:58→21:21)
[2022-08-19] MEDS: CARVedilol 6.25 MG TAB PO SCH ×2 (09:58→21:22)
[2022-08-19] MEDS: FINASTERIDE 5MG TAB PO SCH (09:58)
[2022-08-19] MEDS: lisinopriL 5 MG TAB PO SCH (09:58)
[2022-08-19] MEDS: FAMOTIDINE 20 MG TAB PO SCH (09:58)
[2022-08-19] MEDS: ENOXAPARIN 80MG/0.8ML SYRINGE (J1650 PER 10MG) SC SCH ×2 (09:59→21:21)
[2022-08-19] MEDS: LEVEMIR (INSULIN DETEMIR) 1 UNITS/0.01ML SC SCH (09:59)
[2022-08-19] MEDS: SODIUM CHLORIDE 0.9% INJ 10 ML SYR IV PRN (12:06)
[2022-08-19 14:00] VITALS: BP 117/80
[2022-08-19 20:00] VITALS: BP 162/96
[2022-08-19] MEDS: QUEtiapine FUMARATE 50MG TAB PO SCH (21:21)
[2022-08-19] MEDS: RAMELTEON 8 MG TAB (ROZEREM) PO SCH (21:22)
[2022-08-19] MEDS: MIRTAZAPINE 15 MG TAB PO SCH (21:22)
[2022-08-20] MEDS: SODIUM CHLORIDE 0.9% INJ 10 ML SYR IV SCH ×2 (05:16→17:17)
[2022-08-20 06:26] LABS: BASO # 0.1 10^3/uL (0.0-0.2); EOS # 0.2 10^3/uL (0.0-0.5); EOS % 3.1 % (0.0-3.0); HEMATOCRIT 30.2 % (42.0-52.0); HEMOGLOBIN 9.8 g/dl (13.5-17.5); LYMPH # 1.3 10^3/uL (1.5-5.0); LYMPH % 17.4 % (24.0-44.0); MEAN CORPUSCULAR HEMOGLOBIN 28.7 pg (27.0-33.0); MEAN CORPUSCULAR HGB CONC 32.5 g/dl (32.0-36.5); MEAN CORPUSCULAR VOLUME 88.3 fl (80.0-96.0); MONO # 1.1 10^3/uL (0.0-0.8); MONO % 14.9 % (2.0-8.0); NEUTROPHILS # 4.5 10^3/uL (1.5-8.5); NEUTROPHILS % 61.8 % (36.0-66.0); PLATELET COUNT, AUTOMATED 359 10^3/uL (150-450); RED BLOOD COUNT 3.42 10^6/uL (4.30-6.10); WHITE BLOOD COUNT 7.3 10^3/uL (4.0-10.0)
[2022-08-20 07:20] LABS: BLOOD UREA NITROGEN 17 MG/DL (7-18); CALCIUM LEVEL 8.8 MG/DL (8.8-10.2); CARBON DIOXIDE LEVEL 23 MEQ/L (21-32); CHLORIDE LEVEL 101 MEQ/L (98-107); CREATININE FOR GFR 0.62 MG/DL (0.70-1.30); GLOMERULAR FILTRATION RATE > 60.0 (>42); GLUCOSE, FASTING 112 MG/DL (70-100); MAGNESIUM LEVEL 1.1 MG/DL (1.8-2.4); PREALBUMIN 15.8 MG/DL (20.0-40.0); SODIUM LEVEL 133 MEQ/L (136-145)
[2022-08-20] MEDS: INSULIN LISPRO (NovoLOG) PER UNIT SC SCH ×4 (07:30→21:00)
[2022-08-20] MEDS: FINASTERIDE 5MG TAB PO SCH (09:52)
[2022-08-20] MEDS: MAGNESIUM GLUCONATE 500 MG TAB PO SCH ×3 (09:53→19:45)
[2022-08-20] MEDS: lisinopriL 5 MG TAB PO SCH (09:53)
[2022-08-20] MEDS: ENOXAPARIN 80MG/0.8ML SYRINGE (J1650 PER 10MG) SC SCH ×2 (09:54→19:46)
[2022-08-20] MEDS: FAMOTIDINE 20 MG TAB PO SCH (09:54)
[2022-08-20] MEDS: CARVedilol 6.25 MG TAB PO SCH ×2 (09:54→19:46)
[2022-08-20] MEDS: LEVEMIR (INSULIN DETEMIR) 1 UNITS/0.01ML SC SCH (09:59)
[2022-08-20] MEDS: MAG SULF 1GM/100ML (MAG RUN) 1 GM in IV 1 EA IV SCH ×3 (11:46→19:44)
[2022-08-20] MEDS: SODIUM CHLORIDE 0.9% INJ 10 ML SYR IV PRN ×2 (13:12→16:18)
[2022-08-20 14:00] VITALS: BP 149/85
[2022-08-20] MEDS: MIRALAX *UNIT DOSE* 17GM PACKET PO PRN (19:44)
[2022-08-20] MEDS: MIRTAZAPINE 15 MG TAB PO SCH (19:45)
[2022-08-20] MEDS: SENNA 8.6 MG TAB (SENOKOT) PO PRN (19:45)
[2022-08-20] MEDS: QUEtiapine FUMARATE 50MG TAB PO SCH (19:47)
[2022-08-20] MEDS: RAMELTEON 8 MG TAB (ROZEREM) PO SCH (19:47)
[2022-08-20] MEDS ORDERED: MAG SULF 1GM/100ML (MAG RUN) 1 GM in IV 1 EA IV SCH (21:00)
[2022-08-21 06:00] VITALS: BP 161/100
[2022-08-21] MEDS: SODIUM CHLORIDE 0.9% INJ 10 ML SYR IV SCH ×2 (06:06→18:01)
[2022-08-21 07:08] LABS: BASO # 0.1 10^3/uL (0.0-0.2); BASO % 1.1 % (0.0-1.0); EOS # 0.2 10^3/uL (0.0-0.5); EOS % 2.8 % (0.0-3.0); HEMATOCRIT 30.7 % (42.0-52.0); HEMOGLOBIN 9.9 g/dl (13.5-17.5); LYMPH # 1.2 10^3/uL (1.5-5.0); LYMPH % 14.8 % (24.0-44.0); MEAN CORPUSCULAR HEMOGLOBIN 28.4 pg (27.0-33.0); MEAN CORPUSCULAR HGB CONC 32.2 g/dl (32.0-36.5); MEAN CORPUSCULAR VOLUME 88.2 fl (80.0-96.0); MONO # 1.3 10^3/uL (0.0-0.8); MONO % 15.4 % (2.0-8.0); NEUTROPHILS # 5.3 10^3/uL (1.5-8.5); NEUTROPHILS % 63.6 % (36.0-66.0); PLATELET COUNT, AUTOMATED 381 10^3/uL (150-450); RED BLOOD COUNT 3.48 10^6/uL (4.30-6.10); WHITE BLOOD COUNT 8.3 10^3/uL (4.0-10.0)
[2022-08-21 07:36] LABS: BLOOD UREA NITROGEN 16 MG/DL (7-18); CALCIUM LEVEL 9.4 MG/DL (8.8-10.2); CARBON DIOXIDE LEVEL 24 MEQ/L (21-32); CHLORIDE LEVEL 100 MEQ/L (98-107); CREATININE FOR GFR 0.54 MG/DL (0.70-1.30); GLOMERULAR FILTRATION RATE > 60.0 (>42); GLUCOSE, FASTING 122 MG/DL (70-100); MAGNESIUM LEVEL 1.3 MG/DL (1.8-2.4); POTASSIUM SERUM 5.2 MEQ/L (3.5-5.1); SODIUM LEVEL 132 MEQ/L (136-145)
[2022-08-21] MEDS: MAGNESIUM GLUCONATE 500 MG TAB PO SCH ×3 (09:38→21:41)
[2022-08-21] MEDS: LEVEMIR (INSULIN DETEMIR) 1 UNITS/0.01ML SC SCH (09:38)
[2022-08-21] MEDS: INSULIN LISPRO (NovoLOG) PER UNIT SC SCH ×4 (09:38→21:00)
[2022-08-21] MEDS: FAMOTIDINE 20 MG TAB PO SCH (09:39)
[2022-08-21] MEDS: ENOXAPARIN 80MG/0.8ML SYRINGE (J1650 PER 10MG) SC SCH ×2 (09:39→21:41)
[2022-08-21] MEDS: SODIUM CHLORIDE 0.9% INJ 10 ML SYR IV PRN (09:40)
[2022-08-21] MEDS: FINASTERIDE 5MG TAB PO SCH (09:40)
[2022-08-21] MEDS: CARVedilol 6.25 MG TAB PO SCH ×2 (09:40→21:43)
[2022-08-21] MEDS: MAG SULF 1GM/100ML (MAG RUN) 1 GM in IV 1 EA IV SCH (09:41)
[2022-08-21 14:00] VITALS: BP 136/96
[2022-08-21] MEDS: MAG SULF 1GM/100ML (MAG RUN) X 2 DOSES (2GM TOTAL) IV SCH ×4 (18:01→19:00)
[2022-08-21] MEDS: SENNA 8.6 MG TAB (SENOKOT) PO PRN (18:02)
[2022-08-21] MEDS: MIRALAX *UNIT DOSE* 17GM PACKET PO PRN (18:02)
[2022-08-21] MEDS: MAG SULF 1GM/100ML (MAG RUN) SINGLE DOSE IV SCH ×4 (21:40→23:16)
[2022-08-21] MEDS: QUEtiapine FUMARATE 50MG TAB PO SCH (21:41)
[2022-08-21] MEDS: RAMELTEON 8 MG TAB (ROZEREM) PO SCH (21:41)
[2022-08-21] MEDS: MIRTAZAPINE 15 MG TAB PO SCH (21:41)
[2022-08-21 21:44] VITALS: BP 141/83
[2022-08-22] MEDS: MAGNESIUM GLUCONATE 500 MG TAB PO SCH ×4 (00:12→22:53)
[2022-08-22] MEDS: SODIUM CHLORIDE 0.9% INJ 10 ML SYR IV PRN ×2 (00:30→08:35)
[2022-08-22] MEDS: MAG SULF 1GM/100ML (MAG RUN) SINGLE DOSE IV SCH ×10 (05:42→22:53)
[2022-08-22] MEDS: SODIUM CHLORIDE 0.9% INJ 10 ML SYR IV SCH ×2 (05:43→18:54)
[2022-08-22 06:00] VITALS: BP 141/87
[2022-08-22] MEDS: INSULIN LISPRO (NovoLOG) PER UNIT SC SCH ×4 (07:30→21:00)
[2022-08-22] MEDS: MIRALAX *UNIT DOSE* 17GM PACKET PO PRN (08:30)
[2022-08-22] MEDS: LEVEMIR (INSULIN DETEMIR) 1 UNITS/0.01ML SC SCH (08:31)
[2022-08-22] MEDS: ENOXAPARIN 80MG/0.8ML SYRINGE (J1650 PER 10MG) SC SCH ×2 (08:31→21:12)
[2022-08-22] MEDS: SENNA 8.6 MG TAB (SENOKOT) PO PRN (08:31)
[2022-08-22] MEDS: FINASTERIDE 5MG TAB PO SCH (08:32)
[2022-08-22] MEDS: FAMOTIDINE 20 MG TAB PO SCH (08:32)
[2022-08-22] MEDS: CARVedilol 6.25 MG TAB PO SCH ×2 (08:32→21:12)
[2022-08-22 09:09] LABS: ALBUMIN 2.5 GM/DL (3.2-5.2); ALKALINE PHOSPHATASE 104 U/L (45-117); ALT/SGPT 30 U/L (12-78); AST/SGOT 18 U/L (7-37); BILIRUBIN,TOTAL 0.1 MG/DL (0.2-1.0); BLOOD UREA NITROGEN 16 MG/DL (7-18); CALCIUM LEVEL 9.3 MG/DL (8.8-10.2); CARBON DIOXIDE LEVEL 22 MEQ/L (21-32); CHLORIDE LEVEL 99 MEQ/L (98-107); GLOMERULAR FILTRATION RATE > 60.0 (>42); GLUCOSE, FASTING 166 MG/DL (70-100); MAGNESIUM LEVEL 2.2 MG/DL (1.8-2.4); POTASSIUM SERUM 4.8 MEQ/L (3.5-5.1); SODIUM LEVEL 129 MEQ/L (136-145); TOTAL PROTEIN 7.1 GM/DL (6.4-8.2)
[2022-08-22] MEDS ORDERED: MAGNESIUM GLUCONATE 500 MG TAB JT SCH ×2 (13:00→17:00)
[2022-08-22] MEDS ORDERED: BISACODYL 10 MG SUPP PR ONE (13:35)
[2022-08-22 14:00] VITALS: BP 142/88
[2022-08-22] MEDS: SANTYL OINT 30GM TOP SCH (19:11)
[2022-08-22 19:22] VITALS: BP 140/93
[2022-08-22] MEDS: MIRTAZAPINE 15 MG TAB PO SCH (21:12)
[2022-08-22] MEDS: RAMELTEON 8 MG TAB (ROZEREM) PO SCH (21:12)
[2022-08-22] MEDS: QUEtiapine FUMARATE 50MG TAB PO SCH (21:12)
[2022-08-23] MEDS: MAGNESIUM GLUCONATE 500 MG TAB PO SCH ×6 (00:01→20:31)
[2022-08-23] MEDS: MAG SULF 1GM/100ML (MAG RUN) SINGLE DOSE IV SCH ×10 (00:02→15:37)
[2022-08-23] MEDS: SODIUM CHLORIDE 0.9% INJ 10 ML SYR IV PRN (02:00)
[2022-08-23 05:55] VITALS: BP 138/92
[2022-08-23] MEDS: SODIUM CHLORIDE 0.9% INJ 10 ML SYR IV SCH ×2 (06:22→17:14)
[2022-08-23 06:23] LABS: BASO # 0.1 10^3/uL (0.0-0.2); BASO % 1.1 % (0.0-1.0); EOS # 0.2 10^3/uL (0.0-0.5); EOS % 2.3 % (0.0-3.0); HEMOGLOBIN 10.6 g/dl (13.5-17.5); LYMPH # 1.7 10^3/uL (1.5-5.0); MEAN CORPUSCULAR HEMOGLOBIN 28.7 pg (27.0-33.0); MEAN CORPUSCULAR HGB CONC 32.1 g/dl (32.0-36.5); MEAN CORPUSCULAR VOLUME 89.4 fl (80.0-96.0); MONO # 1.2 10^3/uL (0.0-0.8); MONO % 14.5 % (2.0-8.0); NEUTROPHILS # 5.1 10^3/uL (1.5-8.5); NEUTROPHILS % 59.4 % (36.0-66.0); PLATELET COUNT, AUTOMATED 386 10^3/uL (150-450); RED BLOOD COUNT 3.69 10^6/uL (4.30-6.10); WHITE BLOOD COUNT 8.6 10^3/uL (4.0-10.0)
[2022-08-23 06:53] LABS: BLOOD UREA NITROGEN 18 MG/DL (7-18); CALCIUM LEVEL 9.1 MG/DL (8.8-10.2); CARBON DIOXIDE LEVEL 23 MEQ/L (21-32); CHLORIDE LEVEL 99 MEQ/L (98-107); CREATININE FOR GFR 0.56 MG/DL (0.70-1.30); GLOMERULAR FILTRATION RATE > 60.0 (>42); GLUCOSE, FASTING 125 MG/DL (70-100); MAGNESIUM LEVEL 1.9 MG/DL (1.8-2.4); SODIUM LEVEL 130 MEQ/L (136-145)
[2022-08-23] MEDS: INSULIN LISPRO (NovoLOG) PER UNIT SC SCH ×4 (08:44→20:39)
[2022-08-23] MEDS: ENOXAPARIN 80MG/0.8ML SYRINGE (J1650 PER 10MG) SC SCH ×2 (08:44→20:32)
[2022-08-23] MEDS: LEVEMIR (INSULIN DETEMIR) 1 UNITS/0.01ML SC SCH (08:45)
[2022-08-23] MEDS: FAMOTIDINE 20 MG TAB PO SCH (08:46)
[2022-08-23] MEDS: FINASTERIDE 5MG TAB PO SCH (08:46)
[2022-08-23] MEDS: CARVedilol 6.25 MG TAB PO SCH ×2 (08:48→20:32)
[2022-08-23] MEDS: SANTYL OINT 30GM TOP SCH (08:49)
[2022-08-23 14:00] VITALS: BP 119/75
[2022-08-23] MEDS: MIRTAZAPINE 15 MG TAB PO SCH (20:31)
[2022-08-23] MEDS: QUEtiapine FUMARATE 50MG TAB PO SCH (20:31)
[2022-08-23] MEDS: RAMELTEON 8 MG TAB (ROZEREM) PO SCH (20:39)
[2022-08-23 22:00] VITALS: BP 127/83
[2022-08-24] MEDS: MAGNESIUM GLUCONATE 500 MG TAB PO SCH ×6 (00:27→21:03)
[2022-08-24] MEDS: SODIUM CHLORIDE 0.9% INJ 10 ML SYR IV SCH ×2 (05:34→17:28)
[2022-08-24 05:48] VITALS: BP 116/80
[2022-08-24 07:55] LABS: BLOOD UREA NITROGEN 16 MG/DL (7-18); CALCIUM LEVEL 8.8 MG/DL (8.8-10.2); CARBON DIOXIDE LEVEL 25 MEQ/L (21-32); CHLORIDE LEVEL 99 MEQ/L (98-107); CREATININE FOR GFR 0.58 MG/DL (0.70-1.30); GLOMERULAR FILTRATION RATE > 60.0 (>42); GLUCOSE, FASTING 111 MG/DL (70-100); POTASSIUM SERUM 4.8 MEQ/L (3.5-5.1); SODIUM LEVEL 130 MEQ/L (136-145)
[2022-08-24 08:22] LABS: MAGNESIUM LEVEL 1.4 MG/DL (1.8-2.4)
[2022-08-24] MEDS: LEVEMIR (INSULIN DETEMIR) 1 UNITS/0.01ML SC SCH (08:35)
[2022-08-24] MEDS: INSULIN LISPRO (NovoLOG) PER UNIT SC SCH ×4 (08:35→20:55)
[2022-08-24] MEDS: ENOXAPARIN 80MG/0.8ML SYRINGE (J1650 PER 10MG) SC SCH ×2 (08:36→21:04)
[2022-08-24] MEDS: FAMOTIDINE 20 MG TAB PO SCH (08:36)
[2022-08-24] MEDS: FINASTERIDE 5MG TAB PO SCH (08:38)
[2022-08-24] MEDS: CARVedilol 6.25 MG TAB PO SCH ×2 (08:38→21:02)
[2022-08-24] MEDS: SANTYL OINT 30GM TOP SCH (08:38)
[2022-08-24] MEDS: MAG SULF 1GM/100ML (MAG RUN) SINGLE DOSE IV SCH ×8 (12:09→18:28)
[2022-08-24 14:00] VITALS: BP 119/78
[2022-08-24 20:32] VITALS: BP 122/80
[2022-08-24] MEDS: QUEtiapine FUMARATE 50MG TAB PO SCH (21:02)
[2022-08-24] MEDS: RAMELTEON 8 MG TAB (ROZEREM) PO SCH (21:03)
[2022-08-24] MEDS: MIRTAZAPINE 15 MG TAB PO SCH (21:03)
[2022-08-25] MEDS: MAGNESIUM GLUCONATE 500 MG TAB PO SCH ×7 (02:16→22:14)
[2022-08-25] MEDS: MAG SULF 1GM/100ML (MAG RUN) SINGLE DOSE IV SCH ×12 (02:17→19:01)
[2022-08-25 05:40] VITALS: BP 119/16
[2022-08-25] MEDS: SODIUM CHLORIDE 0.9% INJ 10 ML SYR IV SCH ×2 (06:02→17:43)
[2022-08-25 07:06] LABS: BLOOD UREA NITROGEN 16 MG/DL (7-18); CALCIUM LEVEL 9.2 MG/DL (8.8-10.2); CARBON DIOXIDE LEVEL 23 MEQ/L (21-32); CHLORIDE LEVEL 99 MEQ/L (98-107); CREATININE FOR GFR 0.47 MG/DL (0.70-1.30); GLOMERULAR FILTRATION RATE > 60.0 (>42); GLUCOSE, FASTING 121 MG/DL (70-100); POTASSIUM SERUM 5.2 MEQ/L (3.5-5.1); SODIUM LEVEL 131 MEQ/L (136-145)
[2022-08-25] MEDS: FINASTERIDE 5MG TAB PO SCH (09:21)
[2022-08-25] MEDS: SENNA 8.6 MG TAB (SENOKOT) PO SCH ×2 (09:21→22:15)
[2022-08-25] MEDS: INSULIN LISPRO (NovoLOG) PER UNIT SC SCH ×4 (09:22→21:00)
[2022-08-25] MEDS: LEVEMIR (INSULIN DETEMIR) 1 UNITS/0.01ML SC SCH (09:22)
[2022-08-25] MEDS: ENOXAPARIN 80MG/0.8ML SYRINGE (J1650 PER 10MG) SC SCH ×2 (09:23→22:14)
[2022-08-25] MEDS: SANTYL OINT 30GM TOP SCH (09:23)
[2022-08-25] MEDS: MIRALAX *UNIT DOSE* 17GM PACKET PO PRN (09:24)
[2022-08-25] MEDS: SODIUM CHLORIDE 0.9% INJ 10 ML SYR IV PRN (09:25)
[2022-08-25] MEDS: FAMOTIDINE 20 MG TAB PO SCH (11:06)
[2022-08-25] MEDS: CARVedilol 6.25 MG TAB PO SCH ×2 (11:07→22:15)
[2022-08-25] MEDS: OLANZapine 2.5MG TABLET PO PRN (13:49)
[2022-08-25 14:00] VITALS: BP 138/82
[2022-08-25] MEDS: RAMELTEON 8 MG TAB (ROZEREM) PO SCH (22:15)
[2022-08-25] MEDS: QUEtiapine FUMARATE 50MG TAB PO SCH (22:15)
[2022-08-25] MEDS: MIRTAZAPINE 15 MG TAB PO SCH (22:16)
[2022-08-25] MEDS ORDERED: SENOKOT S TAB PO ONE (23:00)
[2022-08-26] MEDS: MAGNESIUM GLUCONATE 500 MG TAB PO SCH ×6 (01:00→21:45)
[2022-08-26] MEDS: MAG SULF 1GM/100ML (MAG RUN) SINGLE DOSE IV SCH ×4 (01:06→01:44)
[2022-08-26] MEDS: SODIUM CHLORIDE 0.9% INJ 10 ML SYR IV SCH ×2 (05:21→17:45)
[2022-08-26 05:28] VITALS: BP 128/77
[2022-08-26] MEDS: INSULIN LISPRO (NovoLOG) PER UNIT SC SCH ×4 (07:30→21:00)
[2022-08-26 07:40] LABS: MAGNESIUM LEVEL 1.7 MG/DL (1.8-2.4)
[2022-08-26 08:50] LABS: BLOOD UREA NITROGEN 16 MG/DL (7-18); CALCIUM LEVEL 9.2 MG/DL (8.8-10.2); CARBON DIOXIDE LEVEL 22 MEQ/L (21-32); CHLORIDE LEVEL 100 MEQ/L (98-107); CREATININE FOR GFR 0.53 MG/DL (0.70-1.30); GLOMERULAR FILTRATION RATE > 60.0 (>42); GLUCOSE, FASTING 109 MG/DL (70-100); POTASSIUM SERUM 4.6 MEQ/L (3.5-5.1); SODIUM LEVEL 130 MEQ/L (136-145)
[2022-08-26] MEDS: ENOXAPARIN 80MG/0.8ML SYRINGE (J1650 PER 10MG) SC SCH ×2 (10:02→21:45)
[2022-08-26] MEDS: SENNA 8.6 MG TAB (SENOKOT) PO SCH ×2 (10:02→21:45)
[2022-08-26] MEDS: FINASTERIDE 5MG TAB PO SCH (10:02)
[2022-08-26] MEDS: SANTYL OINT 30GM TOP SCH (10:03)
[2022-08-26] MEDS: FAMOTIDINE 20 MG TAB PO SCH (10:03)
[2022-08-26] MEDS: MIRALAX *UNIT DOSE* 17GM PACKET PO PRN (10:03)
[2022-08-26] MEDS: LEVEMIR (INSULIN DETEMIR) 1 UNITS/0.01ML SC SCH (10:03)
[2022-08-26] MEDS: CARVedilol 6.25 MG TAB PO SCH ×2 (10:04→21:46)
[2022-08-26] MEDS: OLANZapine 2.5MG TABLET PO PRN (10:04)
[2022-08-26 14:00] VITALS: BP 131/71
[2022-08-26] MEDS: RAMELTEON 8 MG TAB (ROZEREM) PO SCH (21:46)
[2022-08-26] MEDS: MIRTAZAPINE 15 MG TAB PO SCH (21:46)
[2022-08-26] MEDS: QUEtiapine FUMARATE 50MG TAB PO SCH (21:47)
[2022-08-26 22:00] VITALS: BP 131/86
[2022-08-26] MEDS ORDERED: MAGNESIUM CITRATE 300 ML BTL PO ONE (23:00)
[2022-08-27] MEDS: MAGNESIUM GLUCONATE 500 MG TAB PO SCH ×6 (00:33→21:00)
[2022-08-27] MEDS: SODIUM CHLORIDE 0.9% INJ 10 ML SYR IV SCH ×2 (05:47→18:00)
[2022-08-27 06:00] VITALS: BP 136/91
[2022-08-27 06:36] LABS: BASO # 0.1 10^3/uL (0.0-0.2); BASO % 0.6 % (0.0-1.0); EOS # 0.1 10^3/uL (0.0-0.5); HEMATOCRIT 31.3 % (42.0-52.0); HEMOGLOBIN 10.3 g/dl (13.5-17.5); LYMPH # 1.2 10^3/uL (1.5-5.0); LYMPH % 10.2 % (24.0-44.0); MEAN CORPUSCULAR HGB CONC 32.9 g/dl (32.0-36.5); MEAN CORPUSCULAR VOLUME 88.2 fl (80.0-96.0); MONO # 1.4 10^3/uL (0.0-0.8); MONO % 12.4 % (2.0-8.0); NEUTROPHILS # 8.4 10^3/uL (1.5-8.5); NEUTROPHILS % 74.4 % (36.0-66.0); PLATELET COUNT, AUTOMATED 293 10^3/uL (150-450); RED BLOOD COUNT 3.55 10^6/uL (4.30-6.10); WHITE BLOOD COUNT 11.3 10^3/uL (4.0-10.0)
[2022-08-27 07:13] LABS: BLOOD UREA NITROGEN 14 MG/DL (7-18); CALCIUM LEVEL 8.9 MG/DL (8.8-10.2); CARBON DIOXIDE LEVEL 22 MEQ/L (21-32); CHLORIDE LEVEL 102 MEQ/L (98-107); CREATININE FOR GFR 0.45 MG/DL (0.70-1.30); GLOMERULAR FILTRATION RATE > 60.0 (>42); GLUCOSE, FASTING 124 MG/DL (70-100); MAGNESIUM LEVEL 1.3 MG/DL (1.8-2.4); POTASSIUM SERUM 4.4 MEQ/L (3.5-5.1); SODIUM LEVEL 134 MEQ/L (136-145)
[2022-08-27] MEDS: INSULIN LISPRO (NovoLOG) PER UNIT SC SCH ×4 (07:30→20:27)
[2022-08-27] MEDS ORDERED: MOM 30ML SUSPENSION UDC PO ONE (08:40)
[2022-08-27] MEDS ORDERED: CEFDINIR 300 MG CAP (OMNICEF) PO SCH (09:00)
[2022-08-27] MEDS: ENOXAPARIN 80MG/0.8ML SYRINGE (J1650 PER 10MG) SC SCH ×2 (10:10→21:00)
[2022-08-27] MEDS: LEVEMIR (INSULIN DETEMIR) 1 UNITS/0.01ML SC SCH (10:11)
[2022-08-27] MEDS: FINASTERIDE 5MG TAB PO SCH (10:11)
[2022-08-27] MEDS: DOCUSATE SODIUM 100MG CAPSULE PO SCH ×2 (10:12→21:00)
[2022-08-27] MEDS: SENNA 8.6 MG TAB (SENOKOT) PO SCH ×2 (10:12→21:00)
[2022-08-27] MEDS: FAMOTIDINE 20 MG TAB PO SCH (10:14)
[2022-08-27] MEDS: CARVedilol 6.25 MG TAB PO SCH (10:14)
[2022-08-27] MEDS: SANTYL OINT 30GM TOP SCH (10:18)
[2022-08-27] MEDS: MAG SULF 1GM/100ML (MAG RUN) 1 GM in IV 1 EA IV SCH ×2 (11:06→16:40)
[2022-08-27 15:00] VITALS: BP 126/80
[2022-08-27 20:28] VITALS: BP 130/80
[2022-08-27] MEDS: MIRTAZAPINE 15 MG TAB PO SCH (21:00)
[2022-08-27] MEDS: RAMELTEON 8 MG TAB (ROZEREM) PO SCH (21:00)
[2022-08-27] MEDS ORDERED: SODIUM CHLORIDE 0.9% 1000ML IV ONE (23:30)
[2022-08-27] MEDS ORDERED: MORPHINE 2 MG/ML 1ML VIAL IV ONE (23:30)
[2022-08-27] MEDS ORDERED: HYOSCYAMINE SULFATE 0.125 MG SUBL TABLET PO ONE (23:40)
[2022-08-28] MEDS: QUEtiapine FUMARATE 50MG TAB PO SCH ×2 (00:28→22:03)
[2022-08-28] MEDS: SODIUM CHLORIDE 0.9% INJ 10 ML SYR IV PRN (00:33)
[2022-08-28] MEDS ORDERED: MORPHINE 2 MG/ML 1ML VIAL IV ONE (00:35)
[2022-08-28] MEDS: MAG SULF 1GM/100ML (MAG RUN) 1 GM in IV 1 EA IV SCH ×4 (02:24→22:02)
[2022-08-28] MEDS: CARVedilol 6.25 MG TAB PO SCH ×3 (02:24→22:19)
[2022-08-28 02:26] VITALS: BP 160/97
[2022-08-28] MEDS: ACETAMINOPHEN 500 MG TAB PO PRN (02:41)
[2022-08-28] MEDS: cefTRIAXone SOD 1 GM in D5W MINI-BAG PLUS 50 ML IV SCH ×2 (03:21→21:59)
[2022-08-28 04:11] LABS: BASO # 0.1 10^3/uL (0.0-0.2); BASO % 0.3 % (0.0-1.0); EOS % 0.1 % (0.0-3.0); HEMATOCRIT 28.5 % (42.0-52.0); HEMOGLOBIN 9.6 g/dl (13.5-17.5); LYMPH # 1.1 10^3/uL (1.5-5.0); LYMPH % 7.6 % (24.0-44.0); MEAN CORPUSCULAR HEMOGLOBIN 29.4 pg (27.0-33.0); MEAN CORPUSCULAR HGB CONC 33.7 g/dl (32.0-36.5); MEAN CORPUSCULAR VOLUME 87.2 fl (80.0-96.0); MONO % 10.8 % (2.0-8.0); NEUTROPHILS # 11.9 10^3/uL (1.5-8.5); NEUTROPHILS % 80.3 % (36.0-66.0); PLATELET COUNT, AUTOMATED 272 10^3/uL (150-450); RED BLOOD COUNT 3.27 10^6/uL (4.30-6.10); WHITE BLOOD COUNT 14.8 10^3/uL (4.0-10.0)
[2022-08-28] MEDS ORDERED: NS 1,000 ML IV SCH (04:15)
[2022-08-28 04:29] LABS: MONO # 1.6 10^3/uL (0.0-0.8)
[2022-08-28 04:33] LABS: ALBUMIN 2.5 GM/DL (3.2-5.2); ALKALINE PHOSPHATASE 80 U/L (45-117); ALT/SGPT 24 U/L (12-78); AST/SGOT 16 U/L (7-37); BILIRUBIN,TOTAL 0.3 MG/DL (0.2-1.0); BLOOD UREA NITROGEN 15 MG/DL (7-18); CALCIUM LEVEL 8.5 MG/DL (8.8-10.2); CARBON DIOXIDE LEVEL 21 MEQ/L (21-32); CHLORIDE LEVEL 97 MEQ/L (98-107); CREATININE FOR GFR 0.52 MG/DL (0.70-1.30); GLOMERULAR FILTRATION RATE > 60.0 (>42); GLUCOSE, FASTING 141 MG/DL (70-100); POTASSIUM SERUM 4.1 MEQ/L (3.5-5.1); SODIUM LEVEL 129 MEQ/L (136-145); TOTAL PROTEIN 6.8 GM/DL (6.4-8.2)
[2022-08-28] MEDS ORDERED: VANCOMYCIN HCL 750 MG, VIAL MATE ADAPTER 1 EACH in D5W 250 ML IV ONE ×2 (05:00→06:00)
[2022-08-28] MEDS: SODIUM CHLORIDE 0.9% INJ 10 ML SYR IV SCH ×2 (05:19→18:43)
[2022-08-28 05:28] VITALS: BP 143/85
[2022-08-28] MEDS: INSULIN LISPRO (NovoLOG) PER UNIT SC SCH ×4 (07:30→21:00)
[2022-08-28] MEDS ORDERED: MOM 30ML SUSPENSION UDC PO ONE (07:40)
[2022-08-28 08:17] LABS: MAGNESIUM LEVEL 1.7 MG/DL (1.8-2.4)
[2022-08-28] MEDS: FINASTERIDE 5MG TAB PO SCH (10:10)
[2022-08-28] MEDS: SENNA 8.6 MG TAB (SENOKOT) PO SCH ×2 (10:11→22:03)
[2022-08-28] MEDS: DOCUSATE SODIUM 100MG CAPSULE PO SCH ×2 (10:11→22:03)
[2022-08-28] MEDS: MAGNESIUM GLUCONATE 500 MG TAB PO SCH ×4 (10:11→22:06)
[2022-08-28] MEDS: FAMOTIDINE 20 MG TAB PO SCH (10:12)
[2022-08-28] MEDS: ENOXAPARIN 80MG/0.8ML SYRINGE (J1650 PER 10MG) SC SCH ×2 (10:13→22:08)
[2022-08-28] MEDS: LEVEMIR (INSULIN DETEMIR) 1 UNITS/0.01ML SC SCH (10:15)
[2022-08-28] MEDS: SANTYL OINT 30GM TOP SCH (10:16)
[2022-08-28 14:00] VITALS: BP 151/84
[2022-08-28] MEDS: VANCOMYCIN HCL 750 MG, VIAL MATE ADAPTER 1 EACH in D5W 250 ML IV SCH ×2 (14:07→22:19)
[2022-08-28] MEDS: TAMSULOSIN 0.4 MG CAP PO SCH (16:41)
[2022-08-28] MEDS: OLANZapine 2.5MG TABLET PO PRN (16:53)
[2022-08-28] MEDS: MIRTAZAPINE 15 MG TAB PO SCH (22:02)
[2022-08-28] MEDS: RAMELTEON 8 MG TAB (ROZEREM) PO SCH (22:07)
[2022-08-28 22:37] VITALS: BP 134/85
[2022-08-29] MEDS: VANCOMYCIN HCL 750 MG, VIAL MATE ADAPTER 1 EACH in D5W 250 ML IV SCH (05:27)
[2022-08-29] MEDS: SODIUM CHLORIDE 0.9% INJ 10 ML SYR IV SCH ×2 (05:27→18:27)
[2022-08-29 05:39] VITALS: BP 124/83
[2022-08-29 06:24] LABS: MAGNESIUM LEVEL 1.5 MG/DL (1.8-2.4); VANCOMYCIN LEVEL TROUGH 8.6 UG/ML (10.0-20.0)
[2022-08-29] MEDS: INSULIN LISPRO (NovoLOG) PER UNIT SC SCH ×4 (07:30→21:00)
[2022-08-29 07:38] LABS: BASO # 0.1 10^3/uL (0.0-0.2); BASO % 0.4 % (0.0-1.0); EOS % 0.2 % (0.0-3.0); HEMATOCRIT 29.6 % (42.0-52.0); HEMOGLOBIN 9.5 g/dl (13.5-17.5); LYMPH % 6.2 % (24.0-44.0); MEAN CORPUSCULAR HEMOGLOBIN 29.2 pg (27.0-33.0); MEAN CORPUSCULAR HGB CONC 32.1 g/dl (32.0-36.5); MEAN CORPUSCULAR VOLUME 91.1 fl (80.0-96.0); MONO % 11.6 % (2.0-8.0); NEUTROPHILS # 13.1 10^3/uL (1.5-8.5); NEUTROPHILS % 80.9 % (36.0-66.0); PLATELET COUNT, AUTOMATED 262 10^3/uL (150-450); RED BLOOD COUNT 3.25 10^6/uL (4.30-6.10); WHITE BLOOD COUNT 16.2 10^3/uL (4.0-10.0)
[2022-08-29 07:51] LABS: BLOOD UREA NITROGEN 13 MG/DL (7-18); CALCIUM LEVEL 8.7 MG/DL (8.8-10.2); CARBON DIOXIDE LEVEL 21 MEQ/L (21-32); CHLORIDE LEVEL 99 MEQ/L (98-107); CREATININE FOR GFR 0.47 MG/DL (0.70-1.30); GLOMERULAR FILTRATION RATE > 60.0 (>42); GLUCOSE, FASTING 133 MG/DL (70-100); POTASSIUM SERUM 3.9 MEQ/L (3.5-5.1); SODIUM LEVEL 131 MEQ/L (136-145)
[2022-08-29 08:14] LABS: PREALBUMIN 16.4 MG/DL (20.0-40.0)
[2022-08-29 08:17] LABS: MONO # 1.9 10^3/uL (0.0-0.8)
[2022-08-29] MEDS: DOCUSATE SODIUM 100MG CAPSULE PO SCH ×2 (09:00→21:28)
[2022-08-29] MEDS: SENNA 8.6 MG TAB (SENOKOT) PO SCH ×2 (09:00→21:28)
[2022-08-29] MEDS: CARVedilol 6.25 MG TAB PO SCH ×3 (10:01→21:30)
[2022-08-29] MEDS: TAMSULOSIN 0.4 MG CAP PO SCH ×2 (10:01→21:28)
[2022-08-29] MEDS: ACETAMINOPHEN 500 MG TAB PO PRN (10:03)
[2022-08-29] MEDS: OLANZapine 2.5MG TABLET PO PRN (10:03)
[2022-08-29] MEDS: FAMOTIDINE 20 MG TAB PO SCH (10:04)
[2022-08-29] MEDS: SANTYL OINT 30GM TOP SCH (10:04)
[2022-08-29] MEDS: FINASTERIDE 5MG TAB PO SCH (10:04)
[2022-08-29] MEDS: MAGNESIUM GLUCONATE 500 MG TAB PO SCH ×4 (10:04→22:13)
[2022-08-29] MEDS: MAG SULF 1GM/100ML (MAG RUN) 1 GM in IV 1 EA IV SCH ×3 (10:05→21:00)
[2022-08-29] MEDS: LEVEMIR (INSULIN DETEMIR) 1 UNITS/0.01ML SC SCH (10:06)
[2022-08-29] MEDS: ENOXAPARIN 80MG/0.8ML SYRINGE (J1650 PER 10MG) SC SCH ×2 (10:11→21:31)
[2022-08-29] MEDS: GASTROGRAFIN SOLUTION 30ML PO SCH ×2 (11:00→11:30)
[2022-08-29] MEDS: VANCOMYCIN HCL 1,000 MG, VIAL MATE ADAPTER 1 EACH in D5W 250 ML IV SCH ×2 (12:10→21:23)
[2022-08-29] MEDS: SODIUM CHLORIDE 0.9% INJ 10 ML SYR IV PRN (13:51)
[2022-08-29 14:00] VITALS: BP 124/76
[2022-08-29 20:00] VITALS: BP 123/75
[2022-08-29] MEDS: cefTRIAXone SOD 1 GM in D5W MINI-BAG PLUS 50 ML IV SCH (21:23)
[2022-08-29] MEDS: MIRTAZAPINE 15 MG TAB PO SCH (21:28)
[2022-08-29] MEDS: RAMELTEON 8 MG TAB (ROZEREM) PO SCH (21:28)
[2022-08-29] MEDS: QUEtiapine FUMARATE 50MG TAB PO SCH (21:30)
[2022-08-30] MEDS: VANCOMYCIN HCL 1,000 MG, VIAL MATE ADAPTER 1 EACH in D5W 250 ML IV SCH ×3 (05:00→20:39)
[2022-08-30] MEDS: SODIUM CHLORIDE 0.9% INJ 10 ML SYR IV SCH ×2 (05:00→17:42)
[2022-08-30 05:01] VITALS: BP 139/87
[2022-08-30 06:11] LABS: BASO % 0.3 % (0.0-1.0); EOS # 0.1 10^3/uL (0.0-0.5); EOS % 0.6 % (0.0-3.0); HEMATOCRIT 26.5 % (42.0-52.0); HEMOGLOBIN 8.7 g/dl (13.5-17.5); LYMPH % 7.8 % (24.0-44.0); MEAN CORPUSCULAR HEMOGLOBIN 29.4 pg (27.0-33.0); MEAN CORPUSCULAR HGB CONC 32.8 g/dl (32.0-36.5); MEAN CORPUSCULAR VOLUME 89.5 fl (80.0-96.0); MONO # 1.3 10^3/uL (0.0-0.8); MONO % 9.9 % (2.0-8.0); NEUTROPHILS # 10.5 10^3/uL (1.5-8.5); NEUTROPHILS % 80.8 % (36.0-66.0); PLATELET COUNT, AUTOMATED 256 10^3/uL (150-450); RED BLOOD COUNT 2.96 10^6/uL (4.30-6.10)
[2022-08-30 06:39] LABS: BLOOD UREA NITROGEN 14 MG/DL (7-18); CALCIUM LEVEL 8.5 MG/DL (8.8-10.2); CARBON DIOXIDE LEVEL 24 MEQ/L (21-32); CHLORIDE LEVEL 99 MEQ/L (98-107); GLOMERULAR FILTRATION RATE > 60.0 (>42); GLUCOSE, FASTING 128 MG/DL (70-100); MAGNESIUM LEVEL 1.4 MG/DL (1.8-2.4); POTASSIUM SERUM 4.3 MEQ/L (3.5-5.1); SODIUM LEVEL 131 MEQ/L (136-145)
[2022-08-30] MEDS ORDERED: MOM 30ML SUSPENSION UDC PO ONE (08:05)
[2022-08-30] MEDS: MAG SULF 1GM/100ML (MAG RUN) 1 GM in IV 1 EA IV SCH ×3 (08:41→22:03)
[2022-08-30] MEDS: ENOXAPARIN 80MG/0.8ML SYRINGE (J1650 PER 10MG) SC SCH ×2 (08:42→20:46)
[2022-08-30] MEDS: LEVEMIR (INSULIN DETEMIR) 1 UNITS/0.01ML SC SCH (08:43)
[2022-08-30] MEDS: FAMOTIDINE 20 MG TAB PO SCH (08:43)
[2022-08-30] MEDS: TAMSULOSIN 0.4 MG CAP PO SCH ×2 (08:43→20:44)
[2022-08-30] MEDS: FINASTERIDE 5MG TAB PO SCH (08:46)
[2022-08-30] MEDS: CARVedilol 6.25 MG TAB PO SCH ×2 (08:46→20:48)
[2022-08-30] MEDS: SENNA 8.6 MG TAB (SENOKOT) PO SCH ×2 (08:46→20:45)
[2022-08-30] MEDS: MAGNESIUM GLUCONATE 500 MG TAB PO SCH (08:47)
[2022-08-30] MEDS: DOCUSATE SODIUM 100MG CAPSULE PO SCH ×2 (08:47→20:44)
[2022-08-30] MEDS: SANTYL OINT 30GM TOP SCH (08:48)
[2022-08-30] MEDS: INSULIN LISPRO (NovoLOG) PER UNIT SC SCH ×4 (09:00→20:45)
[2022-08-30] MEDS: SODIUM CHLORIDE 0.9% INJ 10 ML SYR IV PRN (10:15)
[2022-08-30 10:26] VITALS: BP 138/87
[2022-08-30 11:37] VITALS: BP 138/87
[2022-08-30] MEDS: MAGNESIUM OXIDE 400MG TAB (MAG-OX) PO SCH ×2 (12:23→20:44)
[2022-08-30] MEDS ORDERED: VANCOMYCIN HCL 500 MG in D5W MINI-BAG PLUS 100 ML IV ONE (14:00)
[2022-08-30] MEDS ORDERED: VANCOMYCIN HCL 750 MG, VIAL MATE ADAPTER 1 EACH in D5W 250 ML IV ONE (14:00)
[2022-08-30 14:30] VITALS: BP 136/86
[2022-08-30] MEDS: MIRTAZAPINE 15 MG TAB PO SCH (20:44)
[2022-08-30] MEDS: RAMELTEON 8 MG TAB (ROZEREM) PO SCH (20:44)
[2022-08-30] MEDS: QUEtiapine FUMARATE 50MG TAB PO SCH (20:45)
[2022-08-30] MEDS ORDERED: MAGNESIUM OXIDE 400MG TAB (MAG-OX) PO SCH (21:00)
[2022-08-30 22:00] VITALS: BP 120/73
[2022-08-30] MEDS: cefTRIAXone SOD 1 GM in D5W MINI-BAG PLUS 50 ML IV SCH (23:20)
[2022-08-31] MEDS: SODIUM CHLORIDE 0.9% INJ 10 ML SYR IV PRN ×2 (00:11→08:29)
[2022-08-31] MEDS: VANCOMYCIN HCL 1,000 MG, VIAL MATE ADAPTER 1 EACH in D5W 250 ML IV SCH (04:17)
[2022-08-31] MEDS: ACETAMINOPHEN 500 MG TAB PO PRN (04:19)
[2022-08-31] MEDS: SODIUM CHLORIDE 0.9% INJ 10 ML SYR IV SCH ×2 (05:36→16:58)
[2022-08-31 06:00] VITALS: BP 132/86
[2022-08-31 06:33] LABS: MAGNESIUM LEVEL 1.5 MG/DL (1.8-2.4)
[2022-08-31 07:49] LABS: BASO % 0.5 % (0.0-1.0); EOS # 0.2 10^3/uL (0.0-0.5); EOS % 1.8 % (0.0-3.0); HEMATOCRIT 30.3 % (42.0-52.0); HEMOGLOBIN 9.7 g/dl (13.5-17.5); LYMPH % 11.8 % (24.0-44.0); MEAN CORPUSCULAR HEMOGLOBIN 29.5 pg (27.0-33.0); MEAN CORPUSCULAR VOLUME 92.1 fl (80.0-96.0); MONO % 11.2 % (2.0-8.0); NEUTROPHILS # 6.5 10^3/uL (1.5-8.5); NEUTROPHILS % 73.8 % (36.0-66.0); PLATELET COUNT, AUTOMATED 302 10^3/uL (150-450); RED BLOOD COUNT 3.29 10^6/uL (4.30-6.10); WHITE BLOOD COUNT 8.9 10^3/uL (4.0-10.0)
[2022-08-31 08:05] LABS: BLOOD UREA NITROGEN 12 MG/DL (7-18); CALCIUM LEVEL 9.1 MG/DL (8.8-10.2); CARBON DIOXIDE LEVEL 25 MEQ/L (21-32); CHLORIDE LEVEL 99 MEQ/L (98-107); GLOMERULAR FILTRATION RATE > 60.0 (>42); GLUCOSE, FASTING 149 MG/DL (70-100); POTASSIUM SERUM 4.6 MEQ/L (3.5-5.1); SODIUM LEVEL 131 MEQ/L (136-145)
[2022-08-31] MEDS: DOCUSATE SODIUM 100MG CAPSULE PO SCH ×2 (08:26→21:53)
[2022-08-31] MEDS: ENOXAPARIN 80MG/0.8ML SYRINGE (J1650 PER 10MG) SC SCH ×2 (08:26→21:55)
[2022-08-31] MEDS: FAMOTIDINE 20 MG TAB PO SCH (08:26)
[2022-08-31] MEDS: TAMSULOSIN 0.4 MG CAP PO SCH ×2 (08:27→21:53)
[2022-08-31] MEDS: FINASTERIDE 5MG TAB PO SCH (08:27)
[2022-08-31] MEDS: CARVedilol 6.25 MG TAB PO SCH ×2 (08:27→21:54)
[2022-08-31] MEDS: MAGNESIUM OXIDE 400MG TAB (MAG-OX) PO SCH ×4 (08:27→17:57)
[2022-08-31] MEDS: SENNA 8.6 MG TAB (SENOKOT) PO SCH ×2 (08:27→21:53)
[2022-08-31] MEDS: INSULIN LISPRO (NovoLOG) PER UNIT SC SCH ×4 (08:28→21:00)
[2022-08-31] MEDS: LEVEMIR (INSULIN DETEMIR) 1 UNITS/0.01ML SC SCH (08:28)
[2022-08-31] MEDS: MAG SULF 1GM/100ML (MAG RUN) 1 GM in IV 1 EA IV SCH ×3 (08:29→21:53)
[2022-08-31] MEDS: SANTYL OINT 30GM TOP SCH (08:30)
[2022-08-31 09:30] VITALS: BP 134/92
[2022-08-31 12:06] LABS: MAGNESIUM LEVEL 1.6 MG/DL (1.8-2.4); VANCOMYCIN LEVEL TROUGH 17.6 UG/ML (10.0-20.0)
[2022-08-31 14:00] VITALS: BP_SYST 127; BP_SYST 134; BP_DIAS 78; BP_DIAS 82
[2022-08-31] MEDS: BACTRIM 160MG/800MG DS TAB PO SCH ×2 (14:33→21:53)
[2022-08-31] MEDS ORDERED: MAGNESIUM OXIDE 400MG TAB (MAG-OX) PO SCH (16:00)
[2022-08-31 20:00] VITALS: BP 160/98
[2022-08-31] MEDS: AMOXICILLIN 500 MG CAP PO SCH (21:53)
[2022-08-31] MEDS: MIRTAZAPINE 15 MG TAB PO SCH (21:53)
[2022-08-31] MEDS: QUEtiapine FUMARATE 50MG TAB PO SCH (21:53)
[2022-08-31] MEDS: RAMELTEON 8 MG TAB (ROZEREM) PO SCH (21:53)
[2022-09-01] MEDS: MAGNESIUM OXIDE 400MG TAB (MAG-OX) PO SCH ×4 (00:37→17:18)
[2022-09-01 06:00] VITALS: BP 131/86
[2022-09-01 06:29] LABS: BASO # 0.1 10^3/uL (0.0-0.2); BASO % 0.7 % (0.0-1.0); EOS # 0.2 10^3/uL (0.0-0.5); EOS % 2.3 % (0.0-3.0); HEMATOCRIT 28.3 % (42.0-52.0); HEMOGLOBIN 9.2 g/dl (13.5-17.5); LYMPH # 1.3 10^3/uL (1.5-5.0); LYMPH % 14.7 % (24.0-44.0); MEAN CORPUSCULAR HEMOGLOBIN 29.1 pg (27.0-33.0); MEAN CORPUSCULAR HGB CONC 32.5 g/dl (32.0-36.5); MEAN CORPUSCULAR VOLUME 89.6 fl (80.0-96.0); MONO # 1.2 10^3/uL (0.0-0.8); MONO % 13.6 % (2.0-8.0); NEUTROPHILS # 5.8 10^3/uL (1.5-8.5); NEUTROPHILS % 67.8 % (36.0-66.0); PLATELET COUNT, AUTOMATED 346 10^3/uL (150-450); RED BLOOD COUNT 3.16 10^6/uL (4.30-6.10); WHITE BLOOD COUNT 8.6 10^3/uL (4.0-10.0)
[2022-09-01] MEDS: ACETAMINOPHEN 500 MG TAB PO PRN ×3 (06:30→20:55)
[2022-09-01 06:52] LABS: BLOOD UREA NITROGEN 14 MG/DL (7-18); CALCIUM LEVEL 8.9 MG/DL (8.8-10.2); CARBON DIOXIDE LEVEL 22 MEQ/L (21-32); CHLORIDE LEVEL 97 MEQ/L (98-107); GLOMERULAR FILTRATION RATE > 60.0 (>42); GLUCOSE, FASTING 116 MG/DL (70-100); MAGNESIUM LEVEL 1.5 MG/DL (1.8-2.4); POTASSIUM SERUM 4.9 MEQ/L (3.5-5.1); SODIUM LEVEL 130 MEQ/L (136-145)
[2022-09-01] MEDS: INSULIN LISPRO (NovoLOG) PER UNIT SC SCH ×4 (07:30→21:00)
[2022-09-01] MEDS: DOCUSATE SODIUM 100MG CAPSULE PO SCH ×2 (09:37→21:56)
[2022-09-01] MEDS: AMOXICILLIN 500 MG CAP PO SCH ×2 (09:37→21:56)
[2022-09-01] MEDS: FAMOTIDINE 20 MG TAB PO SCH (09:37)
[2022-09-01] MEDS: SENNA 8.6 MG TAB (SENOKOT) PO SCH ×2 (09:37→21:56)
[2022-09-01] MEDS: TAMSULOSIN 0.4 MG CAP PO SCH ×2 (09:37→21:57)
[2022-09-01] MEDS: CARVedilol 6.25 MG TAB PO SCH ×2 (09:38→21:57)
[2022-09-01] MEDS: BACTRIM 160MG/800MG DS TAB PO SCH ×2 (09:38→21:57)
[2022-09-01] MEDS: LEVEMIR (INSULIN DETEMIR) 1 UNITS/0.01ML SC SCH (09:38)
[2022-09-01] MEDS: FINASTERIDE 5MG TAB PO SCH (09:38)
[2022-09-01] MEDS: ENOXAPARIN 80MG/0.8ML SYRINGE (J1650 PER 10MG) SC SCH ×2 (09:39→21:00)
[2022-09-01] MEDS: MAG SULF 1GM/100ML (MAG RUN) 1 GM in IV 1 EA IV SCH ×3 (09:39→21:56)
[2022-09-01] MEDS: SANTYL OINT 30GM TOP SCH (09:40)
[2022-09-01 14:00] VITALS: BP 123/77
[2022-09-01] MEDS: OLANZapine 2.5MG TABLET PO PRN (16:07)
[2022-09-01 20:00] VITALS: BP 124/77
[2022-09-01] MEDS: QUEtiapine FUMARATE 50MG TAB PO SCH (20:54)
[2022-09-01] MEDS: MIRTAZAPINE 15 MG TAB PO SCH (20:54)
[2022-09-01] MEDS: RAMELTEON 8 MG TAB (ROZEREM) PO SCH (20:54)
[2022-09-02] MEDS: MAGNESIUM OXIDE 400MG TAB (MAG-OX) PO SCH ×5 (01:16→23:09)
[2022-09-02 05:49] VITALS: BP 128/79
[2022-09-02 06:49] LABS: BASO # 0.1 10^3/uL (0.0-0.2); BASO % 1.2 % (0.0-1.0); EOS # 0.2 10^3/uL (0.0-0.5); HEMATOCRIT 33.1 % (42.0-52.0); HEMOGLOBIN 10.6 g/dl (13.5-17.5); LYMPH # 1.1 10^3/uL (1.5-5.0); LYMPH % 14.1 % (24.0-44.0); MEAN CORPUSCULAR VOLUME 90.4 fl (80.0-96.0); MONO % 12.9 % (2.0-8.0); NEUTROPHILS # 5.3 10^3/uL (1.5-8.5); NEUTROPHILS % 65.7 % (36.0-66.0); PLATELET COUNT, AUTOMATED 398 10^3/uL (150-450); RED BLOOD COUNT 3.66 10^6/uL (4.30-6.10); WHITE BLOOD COUNT 8.1 10^3/uL (4.0-10.0)
[2022-09-02 07:06] LABS: BLOOD UREA NITROGEN 16 MG/DL (7-18); CALCIUM LEVEL 9.3 MG/DL (8.8-10.2); CARBON DIOXIDE LEVEL 21 MEQ/L (21-32); CHLORIDE LEVEL 100 MEQ/L (98-107); CREATININE FOR GFR 0.59 MG/DL (0.70-1.30); GLOMERULAR FILTRATION RATE > 60.0 (>42); GLUCOSE, FASTING 98 MG/DL (70-100); MAGNESIUM LEVEL 1.5 MG/DL (1.8-2.4); POTASSIUM SERUM 5.2 MEQ/L (3.5-5.1); SODIUM LEVEL 129 MEQ/L (136-145)
[2022-09-02] MEDS: INSULIN LISPRO (NovoLOG) PER UNIT SC SCH ×4 (07:30→21:00)
[2022-09-02] MEDS: LEVEMIR (INSULIN DETEMIR) 1 UNITS/0.01ML SC SCH (09:00)
[2022-09-02 09:11] VITALS: BP 127/80
[2022-09-02] MEDS: MAG SULF 1GM/100ML (MAG RUN) 1 GM in IV 1 EA IV SCH ×3 (09:13→21:09)
[2022-09-02] MEDS: ENOXAPARIN 80MG/0.8ML SYRINGE (J1650 PER 10MG) SC SCH ×2 (09:13→21:11)
[2022-09-02] MEDS: FAMOTIDINE 20 MG TAB PO SCH (09:14)
[2022-09-02] MEDS: DOCUSATE SODIUM 100MG CAPSULE PO SCH ×2 (09:14→21:09)
[2022-09-02] MEDS: FINASTERIDE 5MG TAB PO SCH (09:14)
[2022-09-02] MEDS: BACTRIM 160MG/800MG DS TAB PO SCH ×2 (09:14→21:09)
[2022-09-02] MEDS: AMOXICILLIN 500 MG CAP PO SCH ×2 (09:14→21:09)
[2022-09-02] MEDS: TAMSULOSIN 0.4 MG CAP PO SCH ×2 (09:14→21:10)
[2022-09-02] MEDS: SANTYL OINT 30GM TOP SCH (09:15)
[2022-09-02] MEDS: CARVedilol 6.25 MG TAB PO SCH ×2 (09:15→21:13)
[2022-09-02] MEDS: SENNA 8.6 MG TAB (SENOKOT) PO SCH ×2 (09:15→21:09)
[2022-09-02] MEDS: OLANZapine 2.5MG TABLET PO PRN ×2 (11:11→23:09)
[2022-09-02 18:00] VITALS: BP 134/86
[2022-09-02] MEDS: RAMELTEON 8 MG TAB (ROZEREM) PO SCH (21:09)
[2022-09-02] MEDS: QUEtiapine FUMARATE 50MG TAB PO SCH (21:10)
[2022-09-02] MEDS: MIRTAZAPINE 15 MG TAB PO SCH (21:10)
[2022-09-02 22:00] VITALS: BP 148/88
[2022-09-03] MEDS: ACETAMINOPHEN 500 MG TAB PO PRN (04:29)
[2022-09-03] MEDS: MAGNESIUM OXIDE 400MG TAB (MAG-OX) PO SCH ×3 (05:05→16:45)
[2022-09-03 05:58] LABS: HEMATOCRIT 30.5 % (42.0-52.0); HEMOGLOBIN 9.9 g/dl (13.5-17.5); MEAN CORPUSCULAR HEMOGLOBIN 29.4 pg (27.0-33.0); MEAN CORPUSCULAR HGB CONC 32.5 g/dl (32.0-36.5); MEAN CORPUSCULAR VOLUME 90.5 fl (80.0-96.0); PLATELET COUNT, AUTOMATED 396 10^3/uL (150-450); RED BLOOD COUNT 3.37 10^6/uL (4.30-6.10); WHITE BLOOD COUNT 8.7 10^3/uL (4.0-10.0)
[2022-09-03 06:00] VITALS: BP 122/82
[2022-09-03 06:24] LABS: BLOOD UREA NITROGEN 15 MG/DL (7-18); CALCIUM LEVEL 9.2 MG/DL (8.8-10.2); CARBON DIOXIDE LEVEL 22 MEQ/L (21-32); CHLORIDE LEVEL 100 MEQ/L (98-107); GLOMERULAR FILTRATION RATE > 60.0 (>42); GLUCOSE, FASTING 134 MG/DL (70-100); MAGNESIUM LEVEL 1.5 MG/DL (1.8-2.4); POTASSIUM SERUM 4.7 MEQ/L (3.5-5.1); SODIUM LEVEL 130 MEQ/L (136-145)
[2022-09-03 06:32] LABS: ANISOCYTOSIS 2+; ATYPICAL LYMPH 1 % (0-5); BASOPHILS 2 % (0-1); EOSINOPHILS 1 % (0-3); LYMPHOCYTES 15 % (16-44); METAMYELOCYTES 4 % (0-0); MONOCYTES 10 % (0-5); MYELOCYTES 1 % (0-0); NEUTROPHILS 65 % (28-66); PLATELET ESTIMATE NORMAL (NORMAL)
[2022-09-03] MEDS: MIRALAX *UNIT DOSE* 17GM PACKET PO PRN (10:08)
[2022-09-03] MEDS: LEVEMIR (INSULIN DETEMIR) 1 UNITS/0.01ML SC SCH (10:08)
[2022-09-03] MEDS: INSULIN LISPRO (NovoLOG) PER UNIT SC SCH ×4 (10:08→21:00)
[2022-09-03] MEDS: BACTRIM 160MG/800MG DS TAB PO SCH ×2 (10:09→22:15)
[2022-09-03] MEDS: DOCUSATE SODIUM 100MG CAPSULE PO SCH ×2 (10:09→22:15)
[2022-09-03] MEDS: FAMOTIDINE 20 MG TAB PO SCH (10:09)
[2022-09-03] MEDS: SENNA 8.6 MG TAB (SENOKOT) PO SCH ×2 (10:09→22:15)
[2022-09-03] MEDS: CARVedilol 6.25 MG TAB PO SCH ×2 (10:09→22:19)
[2022-09-03] MEDS: FINASTERIDE 5MG TAB PO SCH (10:09)
[2022-09-03] MEDS: AMOXICILLIN 500 MG CAP PO SCH ×2 (10:09→22:14)
[2022-09-03] MEDS: SANTYL OINT 30GM TOP SCH (10:10)
[2022-09-03] MEDS: TAMSULOSIN 0.4 MG CAP PO SCH ×2 (10:10→22:15)
[2022-09-03] MEDS: ENOXAPARIN 80MG/0.8ML SYRINGE (J1650 PER 10MG) SC SCH ×2 (10:10→22:14)
[2022-09-03] MEDS: MAG SULF 1GM/100ML (MAG RUN) 1 GM in IV 1 EA IV SCH ×3 (10:13→22:14)
[2022-09-03 14:00] VITALS: BP 120/88
[2022-09-03] MEDS: OLANZapine 2.5MG TABLET PO PRN (16:45)
[2022-09-03 21:20] VITALS: BP 107/70
[2022-09-03] MEDS: RAMELTEON 8 MG TAB (ROZEREM) PO SCH (22:14)
[2022-09-03] MEDS: QUEtiapine FUMARATE 50MG TAB PO SCH (22:14)
[2022-09-03] MEDS: MIRTAZAPINE 15 MG TAB PO SCH (22:15)
[2022-09-04] MEDS: MAGNESIUM OXIDE 400MG TAB (MAG-OX) PO SCH ×5 (00:10→21:26)
[2022-09-04] MEDS: ACETAMINOPHEN 500 MG TAB PO PRN (03:09)
[2022-09-04 06:00] VITALS: BP 124/86
[2022-09-04 06:40] LABS: HEMATOCRIT 30.8 % (42.0-52.0); HEMOGLOBIN 9.9 g/dl (13.5-17.5); MEAN CORPUSCULAR HGB CONC 32.1 g/dl (32.0-36.5); MEAN CORPUSCULAR VOLUME 90.3 fl (80.0-96.0); PLATELET COUNT, AUTOMATED 404 10^3/uL (150-450); RED BLOOD COUNT 3.41 10^6/uL (4.30-6.10); WHITE BLOOD COUNT 8.9 10^3/uL (4.0-10.0)
[2022-09-04 07:12] LABS: BLOOD UREA NITROGEN 14 MG/DL (7-18); C REACTIVE PROTEIN QUANTITATIV 1.76 MG/DL (0.00-0.30); CALCIUM LEVEL 8.9 MG/DL (8.8-10.2); CARBON DIOXIDE LEVEL 24 MEQ/L (21-32); CHLORIDE LEVEL 97 MEQ/L (98-107); CREATININE FOR GFR 0.55 MG/DL (0.70-1.30); GLOMERULAR FILTRATION RATE > 60.0 (>42); GLUCOSE, FASTING 110 MG/DL (70-100); MAGNESIUM LEVEL 1.5 MG/DL (1.8-2.4); POTASSIUM SERUM 4.8 MEQ/L (3.5-5.1); SODIUM LEVEL 130 MEQ/L (136-145)
[2022-09-04] MEDS: INSULIN LISPRO (NovoLOG) PER UNIT SC SCH ×4 (07:30→21:00)
[2022-09-04 08:00] LABS: ATYPICAL LYMPH 2 % (0-5); BASOPHILS 1 % (0-1); LYMPHOCYTES 12 % (16-44); METAMYELOCYTES 1 % (0-0); MONOCYTES 12 % (0-5); NEUTROPHILS 70 % (28-66)
[2022-09-04 08:01] LABS: ANISOCYTOSIS 2+; PLATELET ESTIMATE NORMAL (NORMAL)
[2022-09-04] MEDS ORDERED: OLANZapine 2.5MG TABLET PO SCH (09:00)
[2022-09-04] MEDS: MIRALAX *UNIT DOSE* 17GM PACKET PO PRN (09:53)
[2022-09-04] MEDS: MAG SULF 1GM/100ML (MAG RUN) 1 GM in IV 1 EA IV SCH ×3 (09:53→21:31)
[2022-09-04] MEDS: FAMOTIDINE 20 MG TAB PO SCH (09:54)
[2022-09-04] MEDS: FINASTERIDE 5MG TAB PO SCH (09:54)
[2022-09-04] MEDS: AMOXICILLIN 500 MG CAP PO SCH ×2 (09:54→21:25)
[2022-09-04] MEDS: SENNA 8.6 MG TAB (SENOKOT) PO SCH ×2 (09:54→21:26)
[2022-09-04] MEDS: BACTRIM 160MG/800MG DS TAB PO SCH ×2 (09:54→21:27)
[2022-09-04] MEDS: TAMSULOSIN 0.4 MG CAP PO SCH ×2 (09:54→21:27)
[2022-09-04] MEDS: LEVEMIR (INSULIN DETEMIR) 1 UNITS/0.01ML SC SCH (09:54)
[2022-09-04] MEDS: CARVedilol 6.25 MG TAB PO SCH ×2 (09:55→21:28)
[2022-09-04] MEDS: SANTYL OINT 30GM TOP SCH (09:56)
[2022-09-04] MEDS: ENOXAPARIN 80MG/0.8ML SYRINGE (J1650 PER 10MG) SC SCH ×2 (09:56→21:29)
[2022-09-04] MEDS: DOCUSATE SODIUM 100MG CAPSULE PO SCH (09:57)
[2022-09-04 14:00] VITALS: BP 133/90
[2022-09-04] MEDS ORDERED: BISACODYL 10 MG SUPP PR PRN (17:05)
[2022-09-04] MEDS: MOM 30ML SUSPENSION UDC PO PRN (18:43)
[2022-09-04 21:08] VITALS: BP 130/81
[2022-09-04] MEDS: OLANZapine 5 MG TAB PO SCH (21:26)
[2022-09-04] MEDS: RAMELTEON 8 MG TAB (ROZEREM) PO SCH (21:26)
[2022-09-04] MEDS: MIRTAZAPINE 15 MG TAB PO SCH (21:27)
[2022-09-05 06:00] VITALS: BP 129/82
[2022-09-05 06:19] LABS: HEMATOCRIT 35.1 % (42.0-52.0); HEMOGLOBIN 10.9 g/dl (13.5-17.5); MEAN CORPUSCULAR HGB CONC 31.1 g/dl (32.0-36.5); MEAN CORPUSCULAR VOLUME 93.4 fl (80.0-96.0); PLATELET COUNT, AUTOMATED 353 10^3/uL (150-450); RED BLOOD COUNT 3.76 10^6/uL (4.30-6.10); WHITE BLOOD COUNT 7.9 10^3/uL (4.0-10.0)
[2022-09-05 06:47] LABS: BLOOD UREA NITROGEN 16 MG/DL (9-23); CALCIUM LEVEL 9.1 MG/DL (8.3-10.6); CARBON DIOXIDE LEVEL 22 MMOL/L (20-31); CHLORIDE LEVEL 95 MMOL/L (98-107); CREATININE FOR GFR 0.57 MG/DL (0.70-1.30); GLOMERULAR FILTRATION RATE > 60.0 (>42); GLUCOSE, FASTING 122 MG/DL (74-106); MAGNESIUM LEVEL 1.5 MG/DL (1.8-2.4); SODIUM LEVEL 131 MMOL/L (136-145)
[2022-09-05 07:45] LABS: LYMPHOCYTES 17 % (16-44); METAMYELOCYTES 2 % (0-0); MONOCYTES 13 % (0-5); MYELOCYTES 2 % (0-0); NEUTROPHILS 60 % (28-66)
[2022-09-05 07:46] LABS: ANISOCYTOSIS 2+; HYPOCHROMASIA 1+
[2022-09-05 07:47] LABS: PLATELET ESTIMATE NORMAL (NORMAL)
[2022-09-05] MEDS: AMOXICILLIN 500 MG CAP PO SCH ×2 (09:19→22:00)
[2022-09-05] MEDS: MAGNESIUM OXIDE 400MG TAB (MAG-OX) PO SCH ×3 (09:19→21:59)
[2022-09-05] MEDS: TAMSULOSIN 0.4 MG CAP PO SCH ×2 (09:20→22:01)
[2022-09-05] MEDS: FAMOTIDINE 20 MG TAB PO SCH (09:20)
[2022-09-05] MEDS: BACTRIM 160MG/800MG DS TAB PO SCH ×2 (09:20→22:01)
[2022-09-05] MEDS: ENOXAPARIN 80MG/0.8ML SYRINGE (J1650 PER 10MG) SC SCH ×2 (09:20→22:01)
[2022-09-05] MEDS: FINASTERIDE 5MG TAB PO SCH (09:20)
[2022-09-05] MEDS: OLANZapine 5 MG TAB PO SCH ×2 (09:20→22:00)
[2022-09-05] MEDS: LEVEMIR (INSULIN DETEMIR) 1 UNITS/0.01ML SC SCH (09:21)
[2022-09-05] MEDS: INSULIN LISPRO (NovoLOG) PER UNIT SC SCH ×4 (09:21→20:36)
[2022-09-05] MEDS: SENOKOT S TAB PO PRN ×2 (09:22→21:59)
[2022-09-05] MEDS: SENNA 8.6 MG TAB (SENOKOT) PO SCH ×2 (09:22→21:59)
[2022-09-05] MEDS: MIRALAX *UNIT DOSE* 17GM PACKET PO PRN (09:22)
[2022-09-05] MEDS: SANTYL OINT 30GM TOP SCH (09:23)
[2022-09-05] MEDS: CARVedilol 6.25 MG TAB PO SCH ×2 (09:23→22:01)
[2022-09-05] MEDS ORDERED: FLEET ENEMA PR ONE (11:55)
[2022-09-05 14:00] VITALS: BP 128/82
[2022-09-05 19:47] VITALS: BP 129/82
[2022-09-05] MEDS ORDERED: LORazepam 0.5 MG TAB PO ONE (21:00)
[2022-09-05] MEDS: MOM 30ML SUSPENSION UDC PO PRN (21:59)
[2022-09-05] MEDS: MIRTAZAPINE 15 MG TAB PO SCH (22:00)
[2022-09-05] MEDS: RAMELTEON 8 MG TAB (ROZEREM) PO SCH (22:00)
[2022-09-06 06:10] LABS: BASO # 0.1 10^3/uL (0.0-0.2); BASO % 1.2 % (0.0-1.0); EOS # 0.2 10^3/uL (0.0-0.5); EOS % 2.5 % (0.0-3.0); HEMATOCRIT 30.9 % (42.0-52.0); HEMOGLOBIN 10.4 g/dl (13.5-17.5); LYMPH # 1.3 10^3/uL (1.5-5.0); LYMPH % 17.4 % (24.0-44.0); MEAN CORPUSCULAR HEMOGLOBIN 30.2 pg (27.0-33.0); MEAN CORPUSCULAR HGB CONC 33.7 g/dl (32.0-36.5); MEAN CORPUSCULAR VOLUME 89.8 fl (80.0-96.0); MONO # 1.2 10^3/uL (0.0-0.8); MONO % 15.8 % (2.0-8.0); NEUTROPHILS # 4.4 10^3/uL (1.5-8.5); NEUTROPHILS % 58.5 % (36.0-66.0); PLATELET COUNT, AUTOMATED 400 10^3/uL (150-450); RED BLOOD COUNT 3.44 10^6/uL (4.30-6.10); WHITE BLOOD COUNT 7.6 10^3/uL (4.0-10.0)
[2022-09-06 06:18] VITALS: BP 113/80
[2022-09-06 07:30] LABS: BLOOD UREA NITROGEN 17 MG/DL (9-23); CALCIUM LEVEL 9.6 MG/DL (8.3-10.6); CARBON DIOXIDE LEVEL 22 MMOL/L (20-31); CHLORIDE LEVEL 99 MMOL/L (98-107); CREATININE FOR GFR 0.56 MG/DL (0.70-1.30); GLOMERULAR FILTRATION RATE > 60.0 (>42); GLUCOSE, FASTING 120 MG/DL (74-106); MAGNESIUM LEVEL 1.4 MG/DL (1.8-2.4); POTASSIUM SERUM 4.7 MMOL/L (3.5-5.1); SODIUM LEVEL 132 MMOL/L (136-145)
[2022-09-06] MEDS: INSULIN LISPRO (NovoLOG) PER UNIT SC SCH ×4 (08:14→20:49)
[2022-09-06] MEDS: LEVEMIR (INSULIN DETEMIR) 1 UNITS/0.01ML SC SCH (08:15)
[2022-09-06] MEDS: ENOXAPARIN 80MG/0.8ML SYRINGE (J1650 PER 10MG) SC SCH ×2 (08:15→20:53)
[2022-09-06] MEDS: AMOXICILLIN 500 MG CAP PO SCH ×2 (08:15→20:48)
[2022-09-06] MEDS: TAMSULOSIN 0.4 MG CAP PO SCH ×2 (08:16→20:48)
[2022-09-06] MEDS: OLANZapine 5 MG TAB PO SCH ×2 (08:16→20:49)
[2022-09-06] MEDS: BACTRIM 160MG/800MG DS TAB PO SCH ×2 (08:19→20:49)
[2022-09-06] MEDS: SENNA 8.6 MG TAB (SENOKOT) PO SCH ×2 (08:19→20:48)
[2022-09-06] MEDS: CARVedilol 6.25 MG TAB PO SCH ×2 (08:19→20:51)
[2022-09-06] MEDS: MAGNESIUM OXIDE 400MG TAB (MAG-OX) PO SCH ×3 (08:19→20:49)
[2022-09-06] MEDS: FINASTERIDE 5MG TAB PO SCH (08:19)
[2022-09-06] MEDS: FAMOTIDINE 20 MG TAB PO SCH (08:19)
[2022-09-06] MEDS: SANTYL OINT 30GM TOP SCH (08:20)
[2022-09-06] MEDS: MIRALAX *UNIT DOSE* 17GM PACKET PO PRN (08:29)
[2022-09-06] MEDS: MOM 30ML SUSPENSION UDC PO PRN ×2 (08:29→21:32)
[2022-09-06] MEDS ORDERED: MAGN400T2 PO (13:31)
[2022-09-06] MEDS ORDERED: FAMO20TA PO (13:31)
[2022-09-06] MEDS ORDERED: CARV6.25 PO (13:31)
[2022-09-06] MEDS ORDERED: BACTDSTA PO (13:31)
[2022-09-06] MEDS ORDERED: LANTINJ4 SC (13:31)
[2022-09-06] MEDS ORDERED: MIRT-10 PO (13:31)
[2022-09-06] MEDS ORDERED: FINA5TAB2 PO (13:31)
[2022-09-06] MEDS ORDERED: FLOM0.4C39 PO (13:31)
[2022-09-06] MEDS ORDERED: AMOX500C PO (13:31)
[2022-09-06] MEDS ORDERED: SENN18TA PO (13:31)
[2022-09-06] MEDS ORDERED: OLAN1TAB16 PO (13:31)
[2022-09-06] MEDS ORDERED: ELIQ5TAB PO (13:41)
[2022-09-06 14:00] VITALS: BP 123/80
[2022-09-06] MEDS: MIRTAZAPINE 15 MG TAB PO SCH (20:48)
[2022-09-06] MEDS: RAMELTEON 8 MG TAB (ROZEREM) PO SCH (20:49)
[2022-09-07 05:34] VITALS: BP 122/81
[2022-09-07 06:01] LABS: BASO # 0.1 10^3/uL (0.0-0.2); BASO % 1.3 % (0.0-1.0); EOS # 0.2 10^3/uL (0.0-0.5); EOS % 2.3 % (0.0-3.0); HEMATOCRIT 32.1 % (42.0-52.0); HEMOGLOBIN 10.3 g/dl (13.5-17.5); LYMPH # 1.3 10^3/uL (1.5-5.0); LYMPH % 14.5 % (24.0-44.0); MEAN CORPUSCULAR HEMOGLOBIN 29.4 pg (27.0-33.0); MEAN CORPUSCULAR HGB CONC 32.1 g/dl (32.0-36.5); MEAN CORPUSCULAR VOLUME 91.7 fl (80.0-96.0); MONO # 1.3 10^3/uL (0.0-0.8); MONO % 14.5 % (2.0-8.0); NEUTROPHILS # 5.8 10^3/uL (1.5-8.5); NEUTROPHILS % 63.5 % (36.0-66.0); PLATELET COUNT, AUTOMATED 423 10^3/uL (150-450); WHITE BLOOD COUNT 9.1 10^3/uL (4.0-10.0)
[2022-09-07 07:41] LABS: BLOOD UREA NITROGEN 16 MG/DL (9-23); CALCIUM LEVEL 8.8 MG/DL (8.3-10.6); CARBON DIOXIDE LEVEL 21 MMOL/L (20-31); CHLORIDE LEVEL 99 MMOL/L (98-107); CREATININE FOR GFR 0.56 MG/DL (0.70-1.30); GLOMERULAR FILTRATION RATE > 60.0 (>42); GLUCOSE, FASTING 120 MG/DL (74-106); MAGNESIUM LEVEL 1.5 MG/DL (1.8-2.4); POTASSIUM SERUM 5.1 MMOL/L (3.5-5.1); SODIUM LEVEL 132 MMOL/L (136-145)
[2022-09-07] MEDS ORDERED: OLAN1TAB20 PO (08:24)
[2022-09-07] MEDS: INSULIN LISPRO (NovoLOG) PER UNIT SC SCH ×4 (08:32→21:00)
[2022-09-07] MEDS: LEVEMIR (INSULIN DETEMIR) 1 UNITS/0.01ML SC SCH (08:32)
[2022-09-07] MEDS: AMOXICILLIN 500 MG CAP PO SCH ×2 (08:33→21:54)
[2022-09-07] MEDS: SENNA 8.6 MG TAB (SENOKOT) PO SCH ×2 (08:33→21:55)
[2022-09-07] MEDS: BACTRIM 160MG/800MG DS TAB PO SCH ×2 (08:33→21:54)
[2022-09-07] MEDS: FAMOTIDINE 20 MG TAB PO SCH (08:33)
[2022-09-07] MEDS: FINASTERIDE 5MG TAB PO SCH (08:33)
[2022-09-07] MEDS: MAGNESIUM OXIDE 400MG TAB (MAG-OX) PO SCH ×3 (08:34→21:54)
[2022-09-07] MEDS: TAMSULOSIN 0.4 MG CAP PO SCH ×2 (08:34→21:54)
[2022-09-07] MEDS: OLANZapine 5 MG TAB PO SCH ×2 (08:34→21:55)
[2022-09-07] MEDS: CARVedilol 6.25 MG TAB PO SCH ×2 (08:34→21:54)
[2022-09-07] MEDS: SANTYL OINT 30GM TOP SCH (08:37)
[2022-09-07] MEDS: ENOXAPARIN 80MG/0.8ML SYRINGE (J1650 PER 10MG) SC SCH ×2 (08:37→21:55)
[2022-09-07] MEDS: RAMELTEON 8 MG TAB (ROZEREM) PO SCH (21:54)
[2022-09-07] MEDS: MIRTAZAPINE 15 MG TAB PO SCH (21:54)
[2022-09-08 05:34] VITALS: BP 123/83
[2022-09-08] MEDS: SENNA 8.6 MG TAB (SENOKOT) PO SCH (09:54)
[2022-09-08] MEDS: BACTRIM 160MG/800MG DS TAB PO SCH (09:54)
[2022-09-08] MEDS: AMOXICILLIN 500 MG CAP PO SCH (09:54)
[2022-09-08] MEDS: TAMSULOSIN 0.4 MG CAP PO SCH (09:55)
[2022-09-08] MEDS: FAMOTIDINE 20 MG TAB PO SCH (09:55)
[2022-09-08] MEDS: ENOXAPARIN 80MG/0.8ML SYRINGE (J1650 PER 10MG) SC SCH (09:55)
[2022-09-08] MEDS: FINASTERIDE 5MG TAB PO SCH (09:55)
[2022-09-08] MEDS: OLANZapine 5 MG TAB PO SCH (09:55)
[2022-09-08] MEDS: MAGNESIUM OXIDE 400MG TAB (MAG-OX) PO SCH (09:55)
[2022-09-08] MEDS: INSULIN LISPRO (NovoLOG) PER UNIT SC SCH (09:56)
[2022-09-08] MEDS: LEVEMIR (INSULIN DETEMIR) 1 UNITS/0.01ML SC SCH (09:56)
[2022-09-08] MEDS: SANTYL OINT 30GM TOP SCH (09:56)
[2022-09-08 09:57] VITALS: BP 123/83
[2022-09-08] MEDS: CARVedilol 6.25 MG TAB PO SCH (09:57)
[2022-09-08] MEDS: MIRALAX *UNIT DOSE* 17GM PACKET PO PRN (10:00)
[2022-09-08] MEDS: MOM 30ML SUSPENSION UDC PO PRN (10:00)
== END 2022-09-08 12:35 | disposition home health service (06) | DRG 853 ==
LOC: M ED 13:39 → M SDC 16:56 → ENRESERV 20:36 → M PCU 21:15 → EEVIPCON 21:15 → M ICU 07-24 16:22 → M PCU 08-03 21:55 → M MSPAV 08-14 15:22
PROVIDERS: ADMIT Surgery; ATTEND Internal Medicine
PROC: 0DQ60ZZ Repair Stomach, Open Approach (ICD-10-PCS; principal; 2022-07-10 16:15)
PROC: 0WQF0ZZ Repair Abdominal Wall, Open Approach (ICD-10-PCS; 2022-07-13)
PROC: 0DNW0ZZ Release Peritoneum, Open Approach (ICD-10-PCS; 2022-07-13)
PROC: 0DJ08ZZ Inspection of Upper Intestinal Tract, Via Natural or Artificial Opening Endoscopic (ICD-10-PCS; 2022-07-13)
PROC: 0DHA0UZ Insertion of Feeding Device into Jejunum, Open Approach (ICD-10-PCS; 2022-07-13)
PROC: 02HV33Z Insertion of Infusion Device into Superior Vena Cava, Percutaneous Approach (ICD-10-PCS; 2022-07-15)
PROC: 30233N1 Transfusion of Nonautologous Red Blood Cells into Peripheral Vein, Percutaneous Approach (ICD-10-PCS; 2022-07-15)
PROC: 0JQ80ZZ Repair Abdomen Subcutaneous Tissue and Fascia, Open Approach (ICD-10-PCS; 2022-07-24)
PROC: 3E023KZ Introduction of Other Diagnostic Substance into Muscle, Percutaneous Approach (ICD-10-PCS; 2022-07-24)
PROC: 5A1955Z Respiratory Ventilation, Greater than 96 Consecutive Hours (ICD-10-PCS; 2022-07-24)
PROC: 02H633Z Insertion of Infusion Device into Right Atrium, Percutaneous Approach (ICD-10-PCS; 2022-07-25)
PROC: 03HY32Z Insertion of Monitoring Device into Upper Artery, Percutaneous Approach (ICD-10-PCS; 2022-07-25)
PROC: 3E0436Z Introduction of Nutritional Substance into Central Vein, Percutaneous Approach (ICD-10-PCS; 2022-07-30)
PROC: 02HV33Z Insertion of Infusion Device into Superior Vena Cava, Percutaneous Approach (ICD-10-PCS; 2022-08-01)
PROC: 02HV33Z Insertion of Infusion Device into Superior Vena Cava, Percutaneous Approach (ICD-10-PCS; 2022-08-06)
PROC: 0F9430Z Drainage of Gallbladder with Drainage Device, Percutaneous Approach (ICD-10-PCS; 2022-08-06)
PROC: 0F9030Z Drainage of Liver with Drainage Device, Percutaneous Approach (ICD-10-PCS; 2022-08-06)
PROC: B246ZZZ Ultrasonography of Right and Left Heart (ICD-10-PCS; 2022-08-13)
DX: A41.9 Sepsis, unspecified organism (principal); K28.5 Chronic or unspecified gastrojejunal ulcer with perforation; K65.3 Choleperitonitis; K66.1 Hemoperitoneum; K75.0 Abscess of liver; J96.01 Acute respiratory failure with hypoxia; J15.212 Pneumonia due to Methicillin resistant Staphylococcus aureus; G93.41 Metabolic encephalopathy; E87.1 Hypo-osmolality and hyponatremia; N17.9 Acute kidney failure, unspecified; R18.8 Other ascites; K46.0 Unspecified abdominal hernia with obstruction, without gangrene; T81.30XA Disruption of wound, unspecified, initial encounter; D62 Acute posthemorrhagic anemia; E87.20 Acidosis, unspecified; E87.3 Alkalosis; I82.613 Acute embolism and thrombosis of superficial veins of upper extremity, bilateral; N13.30 Unspecified hydronephrosis; I82.622 Acute embolism and thrombosis of deep veins of left upper extremity; J95.851 Ventilator associated pneumonia; K56.7 Ileus, unspecified; N39.0 Urinary tract infection, site not specified; I31.39 Other pericardial effusion (noninflammatory); I12.9 Hypertensive chronic kidney disease with stage 1 through stage 4 chronic kidney disease, or unspecified chronic kidney disease; E11.22 Type 2 diabetes mellitus with diabetic chronic kidney disease; N18.9 Chronic kidney disease, unspecified; K21.9 Gastro-esophageal reflux disease without esophagitis; R41.0 Disorientation, unspecified; R33.9 Retention of urine, unspecified; T42.4X5A Adverse effect of benzodiazepines, initial encounter; K31.2 Hourglass stricture and stenosis of stomach; K59.00 Constipation, unspecified; R65.20 Severe sepsis without septic shock; E87.6 Hypokalemia; E83.42 Hypomagnesemia; Y95 Nosocomial condition; N40.1 Benign prostatic hyperplasia with lower urinary tract symptoms; G47.00 Insomnia, unspecified; Z79.4 Long term (current) use of insulin; Z98.84 Bariatric surgery status; Z79.899 Other long term (current) drug therapy; E87.5 Hyperkalemia; Y83.8 Other surgical procedures as the cause of abnormal reaction of the patient, or of later complication, without mention of misadventure at the time of the procedure; B96.89 Other specified bacterial agents as the cause of diseases classified elsewhere; F41.1 Generalized anxiety disorder; B96.1 Klebsiella pneumoniae [K. pneumoniae] as the cause of diseases classified elsewhere

== ENCOUNTER → 2022-09-25 | Outpatient (REF) | payer MEDICARE, BC ==
[~2022-09-25] MED LIST: AMOX500C PO; BACTDSTA PO; CARV6.25 PO; DULO1CAP6 PO; ELIQ5TAB PO; FAMO20TA PO; FINA5TAB2 PO; FLOM0.4C39 PO; GLUC3SPR; LANTINJ4 SC; MAGN400T2 PO; MIRT-10 PO; OLAN1TAB16 PO; OLAN1TAB20 PO; SENN18TA PO; VICT18IN2 PO; pt comment
[2022-09-25 16:03] LABS: APPEARANCE, URINE MANUAL CLEAR (CLEAR); COLOR, URINE MANUAL YELLOW (YELLOW)
[2022-09-25 16:05] LABS: PROTEIN, URINE MANUAL NEGATIVE (NEGATIVE); SPECIFIC GRAVITY,URINE MANUAL 1.015 (1.002-1.035)
[2022-09-25 16:06] LABS: BILIRUBIN, URINE MANUAL NEGATIVE (NEGATIVE); BLOOD URINE MANUAL POSITIVE (NEGATIVE); GLUCOSE, URINE (UA) MANUAL NEGATIVE (NEGATIVE); KETONE, URINE MANUAL NEGATIVE (NEGATIVE); LEUKOCYTE ESTERASE, URINE MAN POSITIVE (NEGATIVE); NITRITE, URINE MANUAL NEGATIVE (NEGATIVE); UROBILINOGEN, URINE MANUAL NORMAL (NORMAL)
[2022-09-25 16:10] LABS: BACTERIA, URINE NONE SEEN; HYALINE CAST, URINE NONE SEEN /lpf (0-1); RBC, URINE NONE SEEN /hpf (0-3); SQUAMOUS EPITHELIAL CELL URINE NONE SEEN /hpf (SMALL AMT); WBC, URINE 0-1 /hpf (0-3)
== END ==
LOC: M SFHCPLAZ 15:29
PROVIDERS: ATTEND Internal Medicine Infectious Disease
DX: R33.9 Retention of urine, unspecified (principal)

== ENCOUNTER → 2022-11-01 | Outpatient (REF) | payer MEDICARE, BC ==
[2022-11-02 17:44] LABS: SODIUM,RANDOM URINE 27 MMOL/L
[2022-11-05 02:29] LABS: OSMOLALITY URINE 216 MOSM/KG (50-1400)
== END ==
LOC: M LAB REF 17:05
PROVIDERS: ATTEND Internal Medicine Nephrology
DX: E78.1 Pure hyperglyceridemia (principal)